=== PATIENT | female | born 1935 | race Caucasian/White ===

== ENCOUNTER 2018-01-26 06:16 | Inpatient (IN) ==
--- NOTE | 2018-01-26 06:30 | ED ---
HPI General Chief Complaint: Chest Pain Stated Complaint: chest pain/resp Time Seen by Provider: 01/26/18 06:24 Source: patient Mode of arrival: EMS Limitations: no limitations History of Present Illness MD Complaint: Reports shortness of breath and chest pain Onset (ago): week(s) (1) Severity: moderate Consistency/Duration: progressively worsening Relieving factors: nothing Exacerbating factors: nothing Known history of: Reports COPD Associated symptoms: Reports chest pain, pain with inspiration, cough and sputum production (clear) Treatment prior to arrival: Reports oxygen and bronchodilator Related Data Home oxygen amount: none Home Medications Medication Instructions Recorded Confirmed aspirin [Aspir-Low] 81 mg PO 01/26/18 carvedilol 25 mg PO BID 01/26/18 01/26/18 levothyroxine 25 mcg PO DAILY 01/26/18 01/26/18 losartan 25 mg PO DAILY 01/26/18 01/26/18 sertraline [Zoloft] 25 mg PO HS 01/26/18 01/26/18 tolterodine 1 mg PO HS 01/26/18 01/26/18 Allergies Allergy/AdvReac Type Severity Reaction Status Date / Time No Known Allergies Allergy Verified 01/26/18 06:22 Review of Systems ROS: all other systems reviewed are negative PMFSH History History Provided By: Patient Medical History Medical History COPD (chronic obstructive pulmonary disease) (Acute) High cholesterol (Acute) Hypertension (Acute) Stroke (Acute) Surgical History Surgical History H/O endarterectomy (Acute) Status post laser cataract surgery of both eyes (Acute) Social History Social History Substance History: No History of Abuse Smoking Status: Never smoker How Often Do You Have a Drink Containing Alcohol: Monthly or less Recent Travel in [facility] within the Last 8 Weeks: No Recent Out of Country Travel within the Last 8 Weeks: No Exam Narrative Exam Narrative: GENERAL: Well-nourished, well-developed patient in no apparent distress. SKIN: Warm and dry. HEAD: Atraumatic. Normocephalic. EYES: Pupils equal and round. No scleral icterus. No injection or drainage. ENT: No nasal bleeding or discharge. Mucous membranes pink and moist. NECK: Trachea midline. No JVD. CARDIOVASCULAR: Regular rate and rhythm. no rubs or gallops RESPIRATORY: No accessory muscle use. tachypneic, mild wheezing throughout ( patient just finished ems provided nebs), tidal volume equal bilaterally. GASTROINTESTINAL: Abdomen soft, non-tender, nondistended. No rebound or guarding MUSCULOSKELETAL: Extremities without clubbing, cyanosis, or edema. No obvious deformities. NEUROLOGICAL: Awake and alert. No obvious cranial nerve deficits. Motor grossly within normal limits. Five out of 5 muscle strength in the arms and legs. Normal speech. PSYCHIATRIC: Appropriate mood and affect; insight and judgment normal. Course Initial Documented Vital Signs Temperature 97.8 F 01/26/18 06:23 Pulse Rate 85 01/26/18 06:23 Respiratory Rate 18 01/26/18 06:23 Blood Pressure 112/67 01/26/18 06:23 Pulse Oximetry 96 01/26/18 06:23 Last Documented Vital Signs Temperature 97.8 F 01/26/18 06:23 Pulse Rate 70 01/26/18 07:14 Respiratory Rate 20 01/26/18 07:14 Blood Pressure 104/54 L 01/26/18 07:14 Pulse Oximetry 94 L 01/26/18 07:14 Sign Out Sign Out Data: Patient Sign Out occurred on 01/26/18 at 07:00. Patient's care was discussed, and care was transferred from Naseem Naranjo to Emeterio Valencia MD. Sign Out Comment: c/o cp and shortness of breath x 1 week not resolving. pending bloodwork, ct chest r/o pe....ekg shows inverted t waves v4-v6 and [address] depression on I/avl...due to these findings patient should be admitted for further workup (echo, holter, serial enzymes, ekg's, dental office assistant evaluation etc) Last updated by Naseem Naranjo at 01/26/18 06:37 Post-Handoff Eval: The patient is a 82-year-old female who was initially evaluated by the previous physician, Dr. Naranjo. Dr. Naranjo noted that the patient had chest pain and shortness of breath, he thought it was an anginal equivalent as lung sounds were clear. The patient's EKG did reveal nonspecific T wave changes, troponin was elevated at 0.34, CT pulmonary angiogram was negative for PE. The patient was reevaluated at 9:15 AM. The patient had previous stent placement 2 years ago in [place]. The patient does not have a local dental office assistant or local primary physician. The patient now complains of back pain radiating into the neck as well as chest pain with inspiration. The patient had Nitropaste in place, had aspirin this morning, and did not have relief from 1 dose of fentanyl. Therefore, the patient was administered a second dose of fentanyl. The patient will be admitted to [facility] who will cover the [facility] patients. Medical Decision Making MDM Narrative Medical Screen Exam Complete: Yes Emergency Medical Condition: Yes Differential Diagnosis Differential Diagnosis: pulm embolus v pulm edema v pna v pericardial effusion v atypical stemi Lab Data Lab results reviewed: Yes I reviewed the patient's lab results. Result diagrams: 01/26/18 06:25 01/26/18 06:25 Lab Results 01/26/18 01/26/18 01/26/18 Range/Units 06:25 06:25 06:25 WBC 9.0 (4.0-11.0) th/mm3 RBC 3.62 L (4.00-5.30) mil/mm3 Hgb 11.6 (11.6-15.3) gm/dL Hct 34.1 L (35.0-46.0) % MCV 94.3 (80.0-100.0) fL MCH 31.9 (27.0-34.0) pg MCHC 33.9 (32.0-36.0) % RDW 13.3 (11.6-17.2) % Plt Count 181 (150-450) th/mm3 MPV 8.6 (7.0-11.0) fL Neut % (Auto) 75.1 H (16.0-70.0) % Lymph % (Auto) 17.0 (9.0-44.0) % [place] % (Auto) 5.8 (0.0-8.0) % Eos % (Auto) 1.8 (0.0-4.0) % Baso % (Auto) 0.3 (0.0-2.0) % Neut # (Auto) 6.8 (1.8-7.7) th/mm3 Lymph # (Auto) 1.5 (1.0-4.8) th/mm3 [place] # (Auto) 0.5 (0.0-0.9) th/mm3 Eos # (Auto) 0.2 (0.0-0.4) th/mm3 Baso # (Auto) 0.0 (0.0-0.2) th/mm3 WBC Differential . Differential Comment Auto diff final Sodium 142 (136-145) meq/L Potassium 4.2 (3.5-5.1) meq/L Chloride 103 (98-107) meq/L Carbon Dioxide 30.0 (21.0-32.0) meq/L Anion Gap 9 (5-15) meq/L BUN 13 (7-18) mg/dL Creatinine 0.80 (0.50-1.00) mg/dL Estimated GFR 69 L (>89) mL/min Random Glucose 115 H (74-106) mg/dL Calcium 8.6 (8.5-10.1) mg/dL Total Bilirubin 0.4 (0.2-1.0) mg/dL AST 15 (15-37) U/L ALT 18 (10-53) U/L Alkaline Phosphatase 116 (45-117) U/L Total Creatine Kinase 57 (26-192) U/L Troponin I 0.34 H (0.02-0.05) ng/mL B-Natriuretic Peptide 563 H (0-100) pg/mL Total Protein 6.6 (6.4-8.2) g/dL Albumin 3.3 L (3.4-5.0) g/dL Lipase 144 (73-393) U/L Imaging Data Attestation: I personally reviewed and interpreted this imaging study as follows : My impression: X-ray reveals no obvious infiltrate Radiologist's impression: Chest CTA 01/26/18 06:24 CONCLUSION: 1. No evidence of pulmonary embolism. Minimal atelectasis both lung bases. Chest X-Ray 01/26/18 06:24 CONCLUSION: No acute cardiopulmonary disease demonstrated. ECG Data EKG Prior to Arrival: No Attestation: I personally reviewed and interpreted this ECG as follows: Prior ECG tracings: not available for review Interpretation: Normal sinus rhythm,, PMI trolley, slightly depressed ST on 1 aVL as well as inverted T waves on V4 through V6. No acute ST elevation TN pattern noted Discharge Plan Discharge Disposition Patient Disposition: 30 Still Patient Discharge Condition Condition: Stable Discharge Details Diagnosis: Acute non-ST elevation myocardial infarction (NSTEMI), Elevated troponin Physicians Team ED Provider: Emeterio Valencia Primary Care Provider: UNKNOWN, Rxs /Orders / Referrals /Forms Prescriptions: No Action carvedilol 25 mg Tablet 25 mg PO BID RF: 0 tolterodine 1 mg Tablet 1 mg PO HS RF: 0 aspirin [Aspir-Low] 81 mg Tablet,Delayed Release (Dr/Ec) 81 mg PO RF: 0 levothyroxine 25 mcg Tablet 25 mcg PO DAILY RF: 0 losartan 25 mg Tablet 25 mg PO DAILY RF: 0 sertraline [Zoloft] 25 mg Tablet 25 mg PO HS RF: 0 Discharge Instructions Patient Printed Instructions: Chest Pain (ED) Discharge Interventions Interventions: Vital Signs Last Done: 01/26/18 09:27 Status ED Status: Pending Admission
[2018-01-26 06:53] LABS: Baso % (Auto) 0.3 % (0.0-2.0); Eos # (Auto) 0.2 th/mm3 (0.0-0.4); Eos % (Auto) 1.8 % (0.0-4.0); Hematocrit 34.1 % (35.0-46.0); Hemoglobin 11.6 gm/dL (11.6-15.3); Lymph # (Auto) 1.5 th/mm3 (1.0-4.8); Mean Corpuscular HGB Conc 33.9 % (32.0-36.0); Mean Corpuscular Hemoglobin 31.9 pg (27.0-34.0); Mean Corpuscular Volume 94.3 fL (80.0-100.0); Mean Platelet Volume 8.6 fL (7.0-11.0); Mono # (Auto) 0.5 th/mm3 (0.0-0.9); Mono % (Auto) 5.8 % (0.0-8.0); Neut # (Auto) 6.8 th/mm3 (1.8-7.7); Neut % (Auto) 75.1 % (16.0-70.0); Platelet Count 181 th/mm3 (150-450); Red Blood Count 3.62 mil/mm3 (4.00-5.30); Red Cell Distribution Width 13.3 % (11.6-17.2)
--- NOTE | 2018-01-26 06:54 | XR ---
EXAM DATE: 01/26/2018 6:51 AM EDT AGE/SEX: 82 years / Female INDICATIONS: Chest pain and shortness of breath. CLINICAL DATA: This is the patient's initial encounter. Patient reports that signs and symptoms have been present for 2 days and indicates a pain score of 4/10. MEDICAL/SURGICAL HISTORY: Non-responsive. Non-responsive. COMPARISON: No prior exams available for comparison. FINDINGS: No infiltrate, effusion or pneumothorax demonstrated. Heart size within normal limits. Thoracic aorta is tortuous and atherosclerotic. CONCLUSION: No acute cardiopulmonary disease demonstrated. Electronically signed by: Hal De Los Santos MD 01/26/2018 6:53 AM EDT
[2018-01-26 07:06] LABS: Albumin 3.3 g/dL (3.4-5.0); Anion Gap 9 meq/L (5-15); Aspartate Aminotransferase 15 U/L (15-37); Blood Urea Nitrogen 13 mg/dL (7-18); Calcium 8.6 mg/dL (8.5-10.1); Chloride 103 meq/L (98-107); Glomerular Filtration Rate 69 mL/min (>89); Glucose,Random 115 mg/dL (74-106); Lipase 144 U/L (73-393); Potassium 4.2 meq/L (3.5-5.1); Sodium 142 meq/L (136-145)
[2018-01-26 07:07] LABS: Alanine Aminotransferase 18 U/L (10-53)
[2018-01-26 07:10] LABS: Alkaline Phosphatase 116 U/L (45-117); Total Protein 6.6 g/dL (6.4-8.2); Troponin I 0.34 ng/mL (0.02-0.05)
[2018-01-26 07:21] LABS: Creatine Kinase 57 U/L (26-192)
[2018-01-26] MEDS ORDERED: fentaNYL Citrate Inj 100 MCG/2 ML Ampul IV.PUSH ONE (08:02)
--- NOTE | 2018-01-26 09:06 | CT ---
EXAM DATE: 01/26/2018 8:57 AM EDT AGE/SEX: 82 years / Female INDICATIONS: Chest pain and shortness of breath. CLINICAL DATA: This is the patient's initial encounter. Patient reports that signs and symptoms have been present for 1 day and indicates a pain score of 4/10. MEDICAL/SURGICAL HISTORY: Chronic obstructive pulmonary disease. Cerebrovascular disease. Hyperte nsion. None. RADIATION DOSE: 12.80 CTDI (mGy) COMPARISON: No prior exams available for comparison. TECHNIQUE: Volumetric scanning was performed using a multi-row detector CT scanner during bolus infu [place] of 75 ml Omnipaque 350 (iohexol) nonionic water-soluble contrast as a single exam dose. The lakisha a was post processed with a variety of visualization algorithms including full volume maximum intensi ty projection and sliding thin slab reformation. Using automated exposure control and adjustment of t he mA and/or kV according to patient size, radiation dose was kept as low as reasonably achievable to obtain optimal diagnostic quality images. DICOM format image data is available electronically for r eview and comparison. FINDINGS: Pulmonary Arteries: No filling defects are seen in the pulmonary arteries out to the subsegmental ve ssels. The left and right pulmonary arteries are normal in diameter. Lung: No infiltrates seen. Effusion: None. Mediastinum: No evidence of mediastinal or hilar adenopathy. Dense coronary atherosclerotic disease Other: The axilla is unremarkable. CONCLUSION: 1. No evidence of pulmonary embolism. Minimal atelectasis both lung bases. Electronically signed by: Andrae Johansen MD 01/26/2018 9:05 AM EDT
[2018-01-26] MEDS ORDERED: Morphine Sulfate Inj 2 MG/ML Vial IV.PUSH ONE (09:50)
[2018-01-26] MEDS ORDERED: Acetaminophen 325 MG Tablet PO PRN (09:50)
[2018-01-26] MEDS ORDERED: Sodium Chlor 0.9% Inj 500 ML IV.SIG SCH (10:00)
--- NOTE | 2018-01-26 10:46 | P.HP ---
History of Present Illness Primary Care Physician: UNKNOWN History of Present Illness: 82-year-old female with a history of coronary artery disease, peripheral vascular disease, ND, presents to the ER after being awoken for second night with central substernal chest pain. She reports that the pain was made worse with deep inspiration but was unable to be relieved. She states she has had a cough for the past 2-3 weeks associated with a sore throat. Of concern she has a history of myocardial infarction with stents placed on an uncertain date in [place]. Following her first episode of chest pain 2 nights ago she telephoned [employer] call nurse but did not receive a call back. After it happened again she was uncertain about the source and came straight to her [facility] emergency room. As mentioned above she has been battling a cough for the last 2-3 weeks, productive of scant clear to yellowish sputum, was treated a week ago with a 5- day Z-Art which offered temporary resolution, but the symptoms have returned. Her chest pain is induced and made worse by deep inspiration which is caused her to breathe shallow. She denies any nausea vomiting or diarrhea. She denies dysuria, fevers, urine Oder changes. Inpatient Certification: I certify that the inpatient services were ordered in accordance with Medicare regulations governing the order. This includes certification that hospital inpatient services are reasonable and necessary and in the case of services not specified as inpatient-only under 42 CFR 419.22(n), that they are appropriately provided as inpatient services in accordance to with the 2-midnight benchmark under 43 CFR 412.3(e) Review of Systems All other systems reviewed negative except as stated in HPI [facility] - History History Provided By: Patient - Medical History Medical History: Medical History (Last Updated 01/26/18 @ 06:30 by Lashay Schwartz) COPD (chronic obstructive pulmonary disease) High cholesterol Hypertension Stroke - Surgical History Surgical History: Surgical History (Last Updated 01/26/18 @ 06:30 by Lashay Schwartz) H/O endarterectomy Status post laser cataract surgery of both eyes - Family History Family History: Family History (Last Updated 01/26/18 @ 10:40 by Venkat Dennison MD) Other Hypertension - Tobacco History Smoking Status: Never smoker - Alcohol History How Often Do You Have a Drink Containing Alcohol: Monthly or less - Substance Use History Substance History: No History of Abuse - Travel History Recent Travel in the [place] Within the Last 8 Weeks: No Recent Travel Out of the Country Within the Last 8 Weeks: No - Immunization History Tetanus Immunization: Unsure Medications and Allergies Active Medications: Active Medications Acetaminophen (Tylenol) 650 mg PO Q4H PRN PRN Reason: Temp > 100.4 Benzocaine/Menthol (Chloraseptic Sore Throat Lozenge) 1 lozenge BUCCAL Q4H PRN PRN Reason: SORE THROAT Heparin Sodium (Porcine) (Heparin Inj) 5,000 units SQ Q8H [facility] Sodium Chloride (Ns Inj) 1,000 mls @ 40 mls/hr IV.CONT .Q24H [facility] Ketorolac Tromethamine (Toradol Inj) 15 mg IV.PUSH Q6H PRN PRN Reason: Pleuritic Pain Nitroglycerin (Nitrostat Sl) 0.4 mg SL Q5M PRN PRN Reason: CHEST PAIN Ondansetron HCl (Zofran Inj) 4 mg IV.PUSH Q6H PRN PRN Reason: NAUSEA OR VOMITING Sennosides (Senokot) 17.2 mg PO Q12H PRN PRN Reason: Moderate Constipation Sodium Chloride (Ns Flush) 2 ml IV.FLUSH UNSCH PRN PRN Reason: FLUSH AFTER USING IV ACCESS Sodium Chloride (Ns Flush) 2 ml IV.FLUSH BID [facility] Allergies Allergy/AdvReac Type Severity Reaction Status Date / Time No Known Allergies Allergy Verified 01/26/18 06:22 Home Medications Medication Instructions Recorded Confirmed Type aspirin [Aspir-Low] 81 mg PO 01/26/18 History carvedilol 25 mg PO BID 01/26/18 01/26/18 History levothyroxine 25 mcg PO DAILY 01/26/18 01/26/18 History losartan 25 mg PO DAILY 01/26/18 01/26/18 History sertraline [Zoloft] 25 mg PO HS 01/26/18 01/26/18 History tolterodine 1 mg PO HS 01/26/18 01/26/18 History Exam Vital signs: Vital Signs 01/26/18 06:23 01/26/18 06:33 01/26/18 07:13 Temperature 97.8 F Pulse Rate 85 Respiratory Rate 18 Blood Pressure 112/67 Pulse Oximetry 96 95 94 L 01/26/18 07:14 01/26/18 09:27 Temperature Pulse Rate 70 82 Respiratory Rate 20 17 Blood Pressure 104/54 L 101/68 Pulse Oximetry 94 L 96 Intake & Output 01/25/18 01/26/18 01/26/18 18:59 06:59 18:59 Weight 58.967 kg Narrative: GENERAL: AAOx3, no acute distress, adequate nutrition SKIN: Warm and dry, no rashes. HEAD: Atraumatic. Normocephalic. EYES: Pupils equal, round, reactive to light. No scleral icterus. No injection or drainage. ENT: No nasal bleeding or discharge. Moist mucous membranes. Nonerythematous oropharynx. NECK: Trachea midline. No JVD. Thyroid size within normal limits. CARDIOVASCULAR: Regular rate and rhythm. No murmur, no gallops, no rubs. RESPIRATORY: Bibasilar crackles, no wheezes. No accessory muscle use. GASTROINTESTINAL: Abdomen soft, non-tender, nondistended, normal active bowel sounds. Hepatic and splenic margins not palpable. MUSCULOSKELETAL: Extremities without clubbing or cyanosis. No obvious deformities. No edema. NEUROLOGICAL: Awake and alert. No obvious cranial nerve deficits. Motor grossly within normal limits. No focal deficits. Five out of 5 muscle strength in the arms and legs. Normal speech. PSYCHIATRIC: Appropriate mood and affect; insight and judgment normal. Results - Labs CBC & Chem 7: 01/26/18 06:25 01/26/18 06:25 Labs: Laboratory Results - last 24 hr 01/26/18 01/26/18 01/26/18 06:25 06:25 06:25 WBC 9.0 RBC 3.62 L Hgb 11.6 Hct 34.1 L MCV 94.3 MCH 31.9 MCHC 33.9 RDW 13.3 Plt Count 181 MPV 8.6 Neut % (Auto) 75.1 H Lymph % (Auto) 17.0 [place] % (Auto) 5.8 Eos % (Auto) 1.8 Baso % (Auto) 0.3 Neut # (Auto) 6.8 Lymph # (Auto) 1.5 [place] # (Auto) 0.5 Eos # (Auto) 0.2 Baso # (Auto) 0.0 WBC Differential . Differential Comment Auto diff final Sodium 142 Potassium 4.2 Chloride 103 Carbon Dioxide 30.0 Anion Gap 9 BUN 13 Creatinine 0.80 Estimated GFR 69 L Random Glucose 115 H Calcium 8.6 Total Bilirubin 0.4 AST 15 ALT 18 Alkaline Phosphatase 116 Total Creatine Kinase 57 Troponin I 0.34 H B-Natriuretic Peptide 563 H Total Protein 6.6 Albumin 3.3 L Lipase 144 - Imaging Impressions Chest CTA 01/26/18 06:24 CONCLUSION: 1. No evidence of pulmonary embolism. Minimal atelectasis both lung bases. Chest X-Ray 01/26/18 06:24 CONCLUSION: No acute cardiopulmonary disease demonstrated. Caprini VTE Risk Assessment Caprini VTE Risk Assessment: Moderate/High Risk (score >= 2) Caprini Risk Assessment Model: Point Value = 1 Point Value = 2 Point Value = 3 Point Value = 5 Age 41-60 Minor surgery BMI > 25 kg/m2 Swollen legs Varicose veins or History of unexplained or recurrent spontaneous Oral contraceptives or hormone replacement Sepsis (< 1 month) Serious lung disease, including pneumonia (< 1 month) Abnormal pulmonary function Acute myocardial infarction Congestive heart failure (< 1 month) History of inflammatory bowel disease Medical patient at bed rest Age 61-74 Arthroscopic surgery Major open surgery (> 45 min) Laparoscopic surgery (> 45 min) Malignancy Confined to bed (> 72 hours) Immobilizing plaster cast Central venous access Age >= 75 History of VTE Family history of VTE Factor V Leiden Prothrombin [id number] Lupus anticoagulant Anticardiolipin antibodies Elevated serum homocysteine Heparin-induced thrombocytopenia Other congenital or acquired thrombophilia Stroke (< 1 month) Elective arthroplasty Hip, pelvis, or leg fracture Acute spinal cord injury (< 1 month) Prophylaxis Regimen: Total Risk Factor Score Risk Level Prophylaxis Regimen 0-1 Low Early ambulation 2 Moderate Order ONE of the following: *Sequential Compression Device (SCD) *Heparin 5000 units SQ BID 3-4 Higher Order ONE of the following medications: *Heparin 5000 units SQ TID *Enoxaparin/Lovenox 40 mg SQ daily (WT < 150 kg, CrCl > 30 mL/min) *Enoxaparin/Lovenox 30 mg SQ daily (WT < 150 kg, CrCl > 10-29 mL/min) *Enoxaparin/Lovenox 30 mg SQ BID (WT < 150 kg, CrCl > 30 mL/min) AND/OR *Sequential Compression Device (SCD) 5 or more Highest Order ONE of the following medications: *Heparin 5000 units SQ TID (Preferred with Epidurals) *Enoxaparin/Lovenox 40 mg SQ daily (WT < 150 kg, CrCl > 30 mL/min) *Enoxaparin/Lovenox 30 mg SQ daily (WT < 150 kg, CrCl > 10-29 mL/min) *Enoxaparin/Lovenox 30 mg SQ BID (WT < 150 kg, CrCl > 30 mL/min) AND *Sequential Compression Device (SCD) Assessment and Plan - Plan Acute chest pain High risk due to history of ND, currently with elevated troponin level Onset of chest pain was twice and occurred during sleep Patient has a history of stent placement in [place], cannot recall which year She has a history of poor circulation in her legs, history of endarterectomy in 2009 Cardiology is consulted to assist with further workup, treating as cardiac chest pain at this point Cough She has been battling bronchitis for the last 2-3 weeks, completed Z-Art 1 week ago She still complains of sore throat and chest pain with deep inspiration ( pleuritic) Offered Chloraseptic lozenges Change pain control from morphine to Toradol Chest x-ray, CTA, WBCs show no evidence of infectious process Lung exam has bibasilar crackles which is consistent with atelectasis present on CTA We will check a urinalysis to look for possible underlying cause of infection DVT Prophylaxis Heparin
--- NOTE | 2018-01-26 13:31 | MB ---
cc: Russel Rivera MD DATE: 01/26/2018 REASON FOR CONSULTATION: Evaluation of chest pain and elevated troponin. HISTORY OF PRESENT ILLNESS: Patricia Hernandez is an 82-year-old woman with known atherosclerotic cardiovascular disease. She apparently had an IN about 10 years ago and had a stent while she was in [place]. She is known to have severe peripheral arterial disease. She has multiple risk factors for coronary artery disease and has had a previous left carotid endarterectomy at age 63, after which, about a week later, she says she had a stroke. Two nights ago, she complained of pain in her throat. She went back to bed and then had severe pain in her chest. She said it was a strong pain and it hurt to take a deep breath. She had it all morning. She had again last night. The pain is not as bad today, but her troponin is elevated. She has had bronchitis, she says, for a couple of weeks. She also has a sore throat. Her troponin is elevated. She has had a CTA which shows no evidence for pulmonary embolism. Still has mild ongoing chest discomfort. PAST MEDICAL HISTORY: Includes COPD. She smoked a pack a day for 50 years, quit about 20 years ago. Hypertension, hyperlipidemia, stroke at age 63 after a carotid endarterectomy. Lipid status is unknown. She has peripheral arterial disease with absent femoral and pedal pulses. PAST SURGICAL HISTORY: Includes left carotid endarterectomy. MEDICATION LIST: Prior to admission, she was on carvedilol 6.25 b.i.d., losartan 25 mg daily, aspirin daily along with other noncardiac medications. I do not see a statin listed. ALLERGIES: NONE. FAMILY HISTORY: Noncontributory. SOCIAL HISTORY: She smoked, she told me, about a pack a day from a teenager to about age 61. She lives alone. She does have a daughter here in town who lives in [place]. REVIEW OF SYSTEMS: Notable for some memory difficulties and arthritic pain. PHYSICAL EXAMINATION: GENERAL: Reveals an elderly white female who does not appear to be in acute distress. VITAL SIGNS: Charted. HEENT: Unremarkable. NECK: Shows adequate upstrokes with no bruits. CHEST: Shows trace crackles at the bases. CARDIAC: Normal S1, normal S2. Regular rate and rhythm. I do not appreciate murmurs or gallops. ABDOMEN: Soft. EXTREMITIES: Reveal absent femoral and pedal pulses. LABORATORY DATA: EKG shows sinus rhythm, small Q-waves inferiorly, nonspecific ST-T wave changes with slight depression in I and aVL, T-wave inversion in V4, V5, V6 and a minimal degree of elevation in lead III. Findings are nonspecific, but compatible with possible ischemia. She had a CTA which was negative for pulmonary emboli. Her creatinine was 0.8. Initial troponin was 0.34. BNP elevated at 563. Hematocrit was 34.1. IMPRESSION: This is an 82-year-old woman with known severe vascular disease who comes in with chest pain. Her troponin is clearly elevated. There is a strong pleuritic component to the pain, but no evidence for pulmonary embolism on her chest CTA. I offered her a heart catheterization. She is steadfastly refusing having a heart catheterization and when I asked her about explanation of do not resuscitate status, she wants to be a DO NOT RESUSCITATE. PLAN: I am going to treat her medically. I am going to put her on metoprolol 25 b.i.d. and nitro paste 1/2 inch q.6 hours. Start atorvastatin 40 mg daily. Load her with Plavix and continue 75 mg daily. Order aspirin 81 mg daily. A 2-D echo Doppler is ordered. Further therapy to be determined. MD GABINO Douglas/marija , 12:27 PM , 12:37 PM
--- NOTE | 2018-01-26 14:33 | ECG ---
Date Performed: 01/26/2018 Time Performed: 06:32:51 PTAGE: 82 years EKG: Sinus rhythm POSSIBLE LEFT ATRIAL ENLARGEMENT MODERATE T-WAVE ABNORMALITY, CONSIDER LATERAL ISCHEMIA ABNORMAL ECG NO PREVIOUS TRACING DOCTOR: Varun Doshi Interpretating Date/Time 01/26/2018 14:27:57
[2018-01-26] MEDS: Sod Chloride 0.9% Inj 1,000 ML IV.CONT SCH (15:29)
[2018-01-26] MEDS: Heparin - SQ 10,000 UNITS/ML Vial SQ SCH ×3 (15:41→21:15)
[2018-01-26] MEDS: Ketorolac Inj 30 MG/ML (IVP) Vial IV.PUSH PRN ×2 (15:42→21:15)
[2018-01-26 16:34] LABS: Troponin I 0.26 ng/mL (0.02-0.05)
[2018-01-26] MEDS: Sodium Chloride 0.9% 2 ML Flush BID IV.FLUSH SCH (21:15)
[2018-01-26] MEDS: Metoprolol Tartrate 25 MG Tablet PO SCH (21:16)
[2018-01-26] MEDS: Melatonin 5 MG Tablet PO PRN (22:00)
[2018-01-26 22:12] LABS: Troponin I 0.75 ng/mL (0.02-0.05)
[2018-01-26] MEDS ORDERED: Morphine Inj 4 MG/ML Vial IV.PUSH ONE (22:24)
[2018-01-27 01:14] LABS: ABG PCO2 63 mmHg (38-42); ABG PO2 85 mmHg (61-120)
--- NOTE | 2018-01-27 02:28 | XR ---
EXAM DATE: 01/27/2018 2:02 AM EDT AGE/SEX: 82 years / Female INDICATIONS: Congestion. CLINICAL DATA: This is the patient's subsequent encounter. Patient reports that signs and symptoms h ave been present for 2 days and indicates a pain score of Nonresponsive. MEDICAL/SURGICAL HISTORY: Non-responsive. Non-responsive. COMPARISON: [facility] – [place], CHEST 1V SINGLE AP, 01/26/2018. . FINDINGS: The cardiac silhouette is normal in transverse diameter. There is prominence of the central pulmonary vasculature with indistinct vascular margins compatible with vascular congestion but no evidence of overt failure. There is subsegmental atelectasis in the left base. Small bilateral pleural effusions are identified. CONCLUSION: Cardiomegaly and findings of vascular congestion without overt failure. This is new when compared wit h the prior exam. Electronically signed by: Alejandro Ramirez MD 01/27/2018 2:27 AM EDT
[2018-01-27] MEDS: Heparin - SQ 10,000 UNITS/ML Vial SQ SCH ×3 (04:12→21:01)
--- NOTE | 2018-01-27 08:05 | P.PNCA ---
Subjective Interval history: Patient upset about CPAP mask. Denies chest pain. Medications and Allergies Active Medications: Active Medications Acetaminophen (Tylenol) 650 mg PO Q4H PRN PRN Reason: Temp > 100.4 Albuterol (Duoneb Neb (Prn)) 1 ampul NEB Q2HR NEB PRN PRN Reason: sob/wheezing Last Admin: 01/27/18 01:35 Dose: 1 ampul Aspirin (Aspirin Chew) 81 mg PO DAILY [facility] Atorvastatin Calcium (Lipitor) 40 mg PO DAILY [facility] Benzocaine/Menthol (Chloraseptic Sore Throat Lozenge) 1 lozenge BUCCAL Q4H PRN PRN Reason: SORE THROAT Last Admin: 01/26/18 15:42 Dose: 1 lozenge Clopidogrel Bisulfate (Plavix) 75 mg PO DAILY [facility] Furosemide (Lasix Inj) 20 mg IV.PUSH BID@0900,1800 [facility] Heparin Sodium (Porcine) (Heparin Inj) 5,000 units SQ Q8H [facility] Last Admin: 01/27/18 04:12 Dose: Not Given Sodium Chloride (Ns Inj) 1,000 mls @ 40 mls/hr IV.CONT .Q24H [facility] Last Admin: 01/26/18 15:29 Dose: 40 mls/hr Ketorolac Tromethamine (Toradol Inj) 15 mg IV.PUSH Q6H PRN PRN Reason: Pleuritic Pain Last Admin: 01/26/18 21:15 Dose: 15 mg Melatonin (Melatonin) 10 mg PO HS PRN PRN Reason: INSOMNIA Last Admin: 01/26/18 22:00 Dose: 10 mg Metoprolol Tartrate (Lopressor) 25 mg PO BID [facility] Last Admin: 01/26/18 21:16 Dose: 25 mg Nitroglycerin (Nitrostat Sl) 0.4 mg SL Q5M PRN PRN Reason: CHEST PAIN Nitroglycerin (Nitro-Bid 2% Oint) 0.5 inch TOPICAL Q6HR [facility] Last Admin: 01/27/18 06:07 Dose: 0.5 inch Ondansetron HCl (Zofran Inj) 4 mg IV.PUSH Q6H PRN PRN Reason: NAUSEA OR VOMITING Potassium Chloride (K-Dur) 20 meq PO BID [facility] Sennosides (Senokot) 17.2 mg PO Q12H PRN PRN Reason: Moderate Constipation Sodium Chloride (Ns Flush) 2 ml IV.FLUSH UNSCH PRN PRN Reason: FLUSH AFTER USING IV ACCESS Sodium Chloride (Ns Flush) 2 ml IV.FLUSH BID [facility] Last Admin: 01/26/18 21:15 Dose: Not Given Allergies Allergy/AdvReac Type Severity Reaction Status Date / Time No Known Allergies Allergy Verified 01/26/18 06:22 Home Medications Medication Instructions Recorded Confirmed Type aspirin [Aspir-Low] 81 mg PO 01/26/18 History carvedilol 25 mg PO BID 01/26/18 01/26/18 History levothyroxine 25 mcg PO DAILY 01/26/18 01/26/18 History losartan 25 mg PO DAILY 01/26/18 01/26/18 History sertraline [Zoloft] 25 mg PO HS 01/26/18 01/26/18 History tolterodine 1 mg PO HS 01/26/18 01/26/18 History Physical Exam Vital signs: Vital Signs 01/26/18 09:27 01/26/18 12:11 01/26/18 16:00 Temperature 98.7 F Pulse Rate 82 87 92 H Respiratory Rate 17 16 Blood Pressure 101/68 95/66 L 90/56 L Pulse Oximetry 96 92 L 01/26/18 18:00 01/26/18 20:00 01/27/18 00:00 Temperature 98.3 F 99 F Pulse Rate 95 H 82 Respiratory Rate 18 19 Blood Pressure 125/58 L 107/59 L 98/57 L Pulse Oximetry 94 L 96 01/27/18 01:31 01/27/18 02:56 01/27/18 04:00 Temperature 97.4 F L Pulse Rate 103 H 72 Respiratory Rate 30 H 18 Blood Pressure 98/57 L Pulse Oximetry 98 97 97 Intake & Output 01/26/18 01/27/18 01/27/18 18:59 06:59 18:59 Intake Total 420 / 420 Output Total 850 / 850 Balance -430 / -430 Weight 64.7 kg Intake: Oral 420 / 420 Output: Urine 850 / 850 Other: # Incontinent Voids 2 Date of Last Bowel Movement 01/25/18 Narrative: Alert, wearing CPAP Neck veins visble Chest: diminished BS CXR results note CV S1S2 RRR abd soft no edema Results 01/26/18 06:25 01/26/18 06:25 Cardiac Enzymes 01/26/18 01/26/18 01/26/18 Range/Units 06:25 06:25 15:47 AST 15 (15-37) U/L Troponin I 0.34 H 0.26 H (0.02-0.05) ng/mL B-Natriuretic Peptide 563 H (0-100) pg/mL 01/26/18 Range/Units 21:16 AST (15-37) U/L Troponin I 0.75 H* D (0.02-0.05) ng/mL B-Natriuretic Peptide (0-100) pg/mL Coagulation 01/26/18 Range/Units 06:25 B-Natriuretic Peptide 563 H (0-100) pg/mL CBC 01/26/18 Range/Units 06:25 WBC 9.0 (4.0-11.0) th/mm3 RBC 3.62 L (4.00-5.30) mil/mm3 Hgb 11.6 (11.6-15.3) gm/dL Hct 34.1 L (35.0-46.0) % Plt Count 181 (150-450) th/mm3 Neut # (Auto) 6.8 (1.8-7.7) th/mm3 Lymph # (Auto) 1.5 (1.0-4.8) th/mm3 Barry # (Auto) 0.5 (0.0-0.9) th/mm3 Eos # (Auto) 0.2 (0.0-0.4) th/mm3 Baso # (Auto) 0.0 (0.0-0.2) th/mm3 Comprehensive Metabolic Panel 01/26/18 Range/Units 06:25 Sodium 142 (136-145) meq/L Potassium 4.2 (3.5-5.1) meq/L Chloride 103 (98-107) meq/L Carbon Dioxide 30.0 (21.0-32.0) meq/L BUN 13 (7-18) mg/dL Creatinine 0.80 (0.50-1.00) mg/dL Calcium 8.6 (8.5-10.1) mg/dL AST 15 (15-37) U/L ALT 18 (10-53) U/L Alkaline Phosphatase 116 (45-117) U/L Total Protein 6.6 (6.4-8.2) g/dL Albumin 3.3 L (3.4-5.0) g/dL Intake and Output 01/26/18 01/27/18 01/27/18 22:59 06:59 14:59 Intake Total 420 / 420 Output Total 850 / 850 Balance -430 / -430 Intake: Oral 420 / 420 Output: Urine 850 / 850 Other: # Incontinent Voids 2 Date of Last Bowel Movement 01/25/18 Weight 64.7 kg - Imaging and Cardiology Imaging: Impressions Chest CTA 01/26/18 06:24 CONCLUSION: 1. No evidence of pulmonary embolism. Minimal atelectasis both lung bases. Chest X-Ray 01/26/18 06:24 CONCLUSION: No acute cardiopulmonary disease demonstrated. Chest X-Ray 01/27/18 00:00 CONCLUSION: Cardiomegaly and findings of vascular congestion without overt failure. This is new when compared with the prior exam. Assessment and Plan - Assessment (1) Frail elderly Code(s): R54 - Age-related physical debility Status: Acute Plan: She asked to be DNR. No cardiac cath (2) COPD (chronic obstructive pulmonary disease) Code(s): J44.9 - Chronic obstructive pulmonary disease, unspecified Status: Acute Plan: Last night severe CO2 retention. Heavy smoker in the past (3) PAD (peripheral artery disease) Code(s): I73.9 - Peripheral vascular disease, unspecified Status: Acute (4) Acute CHF (congestive heart failure) Code(s): I50.9 - Heart failure, unspecified Status: Acute Plan: start IV lasix. Eco pending (5) Acute non-ST elevation myocardial infarction (NSTEMI) Code(s): I21.4 - Non-ST elevation (NSTEMI) myocardial infarction Status: Acute Plan: Cont ASA/clopidogrel/BB/nitrates/statin
[2018-01-27] MEDS: Ketorolac Inj 30 MG/ML (IVP) Vial IV.PUSH PRN ×3 (09:04→23:11)
[2018-01-27] MEDS: Metoprolol Tartrate 25 MG Tablet PO SCH ×2 (09:09→21:02)
[2018-01-27] MEDS: Sodium Chloride 0.9% 2 ML Flush BID IV.FLUSH SCH ×2 (09:09→21:03)
[2018-01-27] MEDS: Sod Chloride 0.9% Inj 1,000 ML IV.CONT SCH (10:09)
[2018-01-27] MEDS: ALPRAZolam 0.25 MG Tablet PO PRN ×2 (12:38→21:03)
[2018-01-27] MEDS: MethylPREDNISolone Sod Succinate Inj 125 MG/2 ML Vial IV.PUSH SCH ×2 (13:42→21:01)
--- NOTE | 2018-01-27 14:30 | XR ---
EXAM DATE: 01/27/2018 2:28 PM EDT AGE/SEX: 82 years / Female INDICATIONS: Shortness of breath. Back pain, neck pain, shoulder pain. CLINICAL DATA: This is the patient's subsequent encounter. Patient reports that signs and symptoms h ave been present for 2 days and indicates a pain score of 6/10. MEDICAL/SURGICAL HISTORY: None. None. COMPARISON: [facility], CHEST 1V SINGLE AP, 01/27/2018. . FINDINGS: Moderate interstitial edema is present with moderate cardiomegaly. Consolidation changes left base. N o pleural effusion. The portion of the bony skeleton visualized is unremarkable. CONCLUSION: Moderate congestive failure. Electronically signed by: Spencer Marshall MD 01/27/2018 2:29 PM EDT
--- NOTE | 2018-01-27 14:57 | P.PNIM ---
Subjective Interval history: Patient reports that she is having more short of breath this morning and low back pain. She denies any chest pain. She is verifying a DO NOT RESUSCITATE status. She declines cardiac catheterization Physical Exam Vital signs: Vital Signs 01/26/18 16:00 01/26/18 18:00 01/26/18 20:00 Temperature 98.7 F 98.3 F Pulse Rate 92 H 95 H Respiratory Rate 16 18 Blood Pressure 90/56 L 125/58 L 107/59 L Pulse Oximetry 92 L 94 L 01/27/18 00:00 01/27/18 01:31 01/27/18 02:56 Temperature 99 F Pulse Rate 82 103 H Respiratory Rate 19 30 H Blood Pressure 98/57 L Pulse Oximetry 96 98 97 01/27/18 04:00 01/27/18 08:00 01/27/18 09:00 Temperature 97.4 F L 98.0 F 97.8 F Pulse Rate 72 78 83 Respiratory Rate 18 18 18 Blood Pressure 98/57 L 105/59 L 114/69 Pulse Oximetry 97 95 97 01/27/18 12:00 01/27/18 13:58 Temperature 98.0 F Pulse Rate 78 77 Respiratory Rate 18 22 Blood Pressure 105/59 L Pulse Oximetry 95 Intake & Output 01/26/18 01/27/18 01/27/18 18:59 06:59 18:59 Intake Total 420 / 420 Output Total 850 / 850 Balance -430 / -430 Weight 64.7 kg Intake: Oral 420 / 420 Output: Urine 850 / 850 Other: # Incontinent Voids 2 Date of Last Bowel Movement 01/25/18 Narrative: GENERAL: This is a well-nourished, well-developed patient, in no apparent distress. CARDIOVASCULAR: Regular rate and rhythm RESPIRATORY: Diffuse axillary wheezes bilaterally with few bibasilar crackles GASTROINTESTINAL: Abdomen soft, non-tender, nondistended. Normal active bowel sounds MUSCULOSKELETAL: Extremities without clubbing, cyanosis, trace edema NEURO: Alert & Oriented x4 to person, place, time, situation. Moves all ext x4 Results - Labs CBC & Chem 7: 01/26/18 06:25 01/26/18 06:25 Laboratory Results - last 24 hr 01/26/18 01/26/18 01/27/18 15:47 21:16 01:03 Puncture Site Left radial Patient Temperature 98.6 O2 Saturation 93 ABG pH 7.26 L* ABG pCO2 63 H* ABG pO2 85 ABG HCO3 27 H ABG O2 Content 15.4 ABG Base Excess 1.0 ABG Methemoglobin 1.0 Arnie Test Present Hemoglobin 11.7 L Carboxyhemoglobin 1.2 O2 Delivery Device Nasal cannula Liter Flow 3.00 Critical Value Yes Total Creatine Kinase 60 76 Troponin I 0.26 H 0.75 H* D - Imaging Impressions Chest X-Ray 01/27/18 00:00 CONCLUSION: Cardiomegaly and findings of vascular congestion without overt failure. This is new when compared with the prior exam. Chest X-Ray 01/27/18 00:00 CONCLUSION: Moderate congestive failure. Assessment and Plan - Plan Non-ST elevation myocardial infarction Patient declines cardiac catheterization and was seen by Dr. Rivera cardiology Continue medical management with aspirin, beta-nicolle, statin, nitro patch Acute congestive heart failure exacerbation Total dose of Lasix 60 mg IV given this morning and will continue with 20 mg IV twice daily with potassium supplement. Obtain 2D echo for further evaluation Acute COPD exacerbation O2 support scheduled duonebs Steroids will be initiated DVT prophylaxis Lovenox. Code Status: DNR Discharge Planning: Pending clinical status
--- NOTE | 2018-01-27 18:49 | ECHRPT ---
Indication: CHEST PAIN CONCLUSIONS The left ventricular systolic function is low normal with an estimated ejection fraction in the rang e of 50- 55%. Mild concentric left ventricular hypertrophy. A possible atrial level shunt is demonstrated by color flow Doppler interrogation. Moderate mitral valve regurgitation. There is trace tricuspid valve regurgitation. Left pleural effusion noted. BP: / HR: Rhythm: MEASUREMENTS (Male / Female) Normal Values Technical Quality: 2D ECHO LV Diastolic Diameter PLAX 4.2 cm 4.2 - 5.9 / 3.9 - 5.3 cm LV Systolic Diameter PLAX 3.2 cm IVS Diastolic Thickness 1.2 cm 0.6 - 1.0 / 0.6 - 0.9 cm LVPW Diastolic Thickness 1.1 cm 0.6 - 1.0 / 0.6 - 0.9 cm LV Relative Wall Thickness 0.5 RV Internal Dim ED PLAX 2.4 cm LVOT Diameter 2.0 cm Aortic Root Diameter 2.6 cm LA Systolic Diameter LX 3.3 cm 3.0 - 4.0 / 2.7 - 3.8 cm LV Ejection Fraction MOD 4C 51.8 % LV Ejection Fraction 4C AL 52.4 % M-MODE AV Cusp Separation MM 1.7 cm DOPPLER AV Peak Velocity 129.0 cm/s AV Peak Gradient 6.7 mmHg LVOT Peak Velocity 63.7 cm/s LVOT Peak Gradient 1.6 mmHg AV Area Cont Eq pk 1.6 cm MR Peak Velocity 545.0 cm/s MR Peak Gradient 118.8 mmHg Mitral E Point Velocity 138.0 cm/s Mitral A Point Velocity 81.4 cm/s Mitral E to A Ratio 1.7 LV E' Lateral Velocity 11.4 cm/s Mitral E to LV E' Lateral Ratio 12.1 LV E' Septal Velocity 7.2 cm/s Mitral E to LV E' Septal Ratio 19.1 TR Peak Velocity 336.0 cm/s TR Peak Gradient 45.2 mmHg Right Atrial Pressure 10.0 mmHg Pulmonary Artery Systolic Pressu 55.2 mmHg Right Ventricular Systolic Press 55.2 mmHg PV Peak Velocity 70.1 cm/s PV Peak Gradient 2.0 mmHg FINDINGS LEFT VENTRICLE The left ventricular systolic function is low normal with an estimated ejection fraction in the rang e of 50- 55%. Mild concentric left ventricular hypertrophy. There was limited left ventricular wall motion assessment due to poor endocardial visualization. RIGHT VENTRICLE The right ventricle was not well visualized. LEFT ATRIUM The left atrial size is mildly dilated. RIGHT ATRIUM The right atrial size is normal. ATRIAL SEPTUM A possible atrial level shunt is demonstrated by color flow Doppler interrogation AORTA The aortic root and proximal ascending aorta are normal in size on limited imaging. MITRAL VALVE Structurally normal mitral valve. No mitral valve stenosis. Moderate mitral valve regurgitation. Mild mitral annular calcification. AORTIC VALVE No aortic valve stenosis or regurgitation. TRICUSPID VALVE Grossly normal There is trace tricuspid valve regurgitation. PULMONARY VALVE No pulmonary valve regurgitation or stenosis. VESSELS The inferior vena cava is normal in size. PERICARDIUM No pericardial effusion. Left pleural effusion noted Will Proctor DO (Electronically Signed) Final Date:27 January 2018 18:48
--- NOTE | 2018-01-27 19:42 | ECG ---
Date Performed: 01/26/2018 Time Performed: 18:18:37 PTAGE: 82 years EKG: Sinus rhythm ST-T wave abnormalities consistent with possible ischemia ABNORMAL ECG PREVIOUS TRACING : 01/26/2018 06.32 Since the previous tracing, no significant change noted DOCTOR: Russel Rivera Interpretating Date/Time 01/27/2018 19:42:08
[2018-01-27] MEDS: Melatonin 5 MG Tablet PO PRN (21:05)
[2018-01-28] MEDS: MethylPREDNISolone Sod Succinate Inj 125 MG/2 ML Vial IV.PUSH SCH ×4 (00:59→20:24)
[2018-01-28] MEDS: Ketorolac Inj 30 MG/ML (IVP) Vial IV.PUSH PRN ×3 (04:31→19:33)
[2018-01-28] MEDS: ALPRAZolam 0.25 MG Tablet PO PRN ×3 (04:31→20:20)
[2018-01-28] MEDS: Heparin - SQ 10,000 UNITS/ML Vial SQ SCH ×3 (04:58→20:28)
[2018-01-28 07:29] LABS: Baso % (Auto) 0.1 % (0.0-2.0); Hematocrit 38.1 % (35.0-46.0); Hemoglobin 12.9 gm/dL (11.6-15.3); Lymph # (Auto) 0.6 th/mm3 (1.0-4.8); Lymph % (Auto) 3.7 % (9.0-44.0); Mean Corpuscular HGB Conc 33.8 % (32.0-36.0); Mean Corpuscular Hemoglobin 31.9 pg (27.0-34.0); Mean Corpuscular Volume 94.5 fL (80.0-100.0); Mean Platelet Volume 9.3 fL (7.0-11.0); Mono # (Auto) 0.3 th/mm3 (0.0-0.9); Mono % (Auto) 1.9 % (0.0-8.0); Neut # (Auto) 14.4 th/mm3 (1.8-7.7); Neut % (Auto) 94.3 % (16.0-70.0); Platelet Count 207 th/mm3 (150-450); Red Blood Count 4.03 mil/mm3 (4.00-5.30); Red Cell Distribution Width 13.5 % (11.6-17.2); White Blood Count 15.3 th/mm3 (4.0-11.0)
[2018-01-28] MEDS: Metoprolol Tartrate 25 MG Tablet PO SCH ×2 (08:10→20:20)
[2018-01-28] MEDS: Sodium Chloride 0.9% 2 ML Flush BID IV.FLUSH SCH ×2 (08:11→20:29)
[2018-01-28 08:14] LABS: Alanine Aminotransferase 28 U/L (10-53); Albumin 3.3 g/dL (3.4-5.0); Alkaline Phosphatase 137 U/L (45-117); Anion Gap 12 meq/L (5-15); Aspartate Aminotransferase 39 U/L (15-37); Blood Urea Nitrogen 26 mg/dL (7-18); Calcium 8.7 mg/dL (8.5-10.1); Carbon Dioxide 25.5 meq/L (21.0-32.0); Chloride 99 meq/L (98-107); Glomerular Filtration Rate 37 mL/min (>89); Glucose,Random 274 mg/dL (74-106); Potassium 4.2 meq/L (3.5-5.1); Sodium 136 meq/L (136-145); Total Protein 7.9 g/dL (6.4-8.2)
--- NOTE | 2018-01-28 11:27 | P.PN ---
Subjective Interval history: Pt had more cp/sob over night, feeling a little better currently Physical Exam Vital signs: Vital Signs 01/27/18 12:00 01/27/18 13:58 01/27/18 16:00 Temperature 98.0 F 97.1 F L Pulse Rate 76 77 92 H Respiratory Rate 18 22 18 Blood Pressure 105/59 L 100/56 L Pulse Oximetry 95 94 L 01/27/18 16:31 01/27/18 17:00 01/27/18 20:00 Temperature 98.3 F Pulse Rate 99 H 96 H 82 Respiratory Rate 18 16 Blood Pressure 102/69 Pulse Oximetry 95 01/27/18 20:08 01/27/18 23:36 01/28/18 00:00 Temperature 98 F Pulse Rate 98 H 97 H 105 H Respiratory Rate 19 18 18 Blood Pressure 100/76 Pulse Oximetry 96 97 94 L 01/28/18 02:30 01/28/18 03:36 01/28/18 03:38 Temperature 97.8 F Pulse Rate 112 H 113 H Respiratory Rate 40 H 22 Blood Pressure 113/72 Pulse Oximetry 92 L 93 L 01/28/18 04:00 01/28/18 07:47 Temperature Pulse Rate 114 H 115 H Respiratory Rate 20 Blood Pressure Pulse Oximetry Intake & Output 01/27/18 01/28/18 01/28/18 18:59 06:59 18:59 Intake Total 500 / 500 280 / 280 Output Total 300 / 300 Balance 500 / 500 -20 / -20 Weight 65.1 kg Intake: IV 500 / 500 NS Inj 1,000 ML @ 40 mls/hr IV. 500 / 500 CONT .Q24H [facility] Rx#:[id number] Oral 280 / 280 Output: Urine 300 / 300 Other: # Voids 2 - Constitutional no acute distress - Routine HEENT Exam Head: Present: normocephalic - Routine Neck Exam Present: supple - Routine Respiratory Exam Present: rales - Routine Cardiovascular Exam Present: RRR. Absent: murmur - Routine Abdominal Exam Present: soft Results - Labs CBC & Chem 7: 01/28/18 06:23 01/28/18 06:23 Laboratory Results - last 24 hr 01/28/18 01/28/18 06:23 06:23 WBC 15.3 H RBC 4.03 Hgb 12.9 Hct 38.1 MCV 94.5 MCH 31.9 MCHC 33.8 RDW 13.5 Plt Count 207 MPV 9.3 Neut % (Auto) 94.3 H Lymph % (Auto) 3.7 L Long % (Auto) 1.9 Eos % (Auto) 0.0 Baso % (Auto) 0.1 Neut # (Auto) 14.4 H Lymph # (Auto) 0.6 L Long # (Auto) 0.3 Eos # (Auto) 0.0 Baso # (Auto) 0.0 WBC Differential . Differential Comment Auto diff final Sodium 136 Potassium 4.2 Chloride 99 Carbon Dioxide 25.5 Anion Gap 12 BUN 26 H Creatinine 1.36 H Estimated GFR 37 L Random Glucose 274 H D Calcium 8.7 Total Bilirubin 0.4 AST 39 H ALT 28 Alkaline Phosphatase 137 H Total Protein 7.9 D Albumin 3.3 L - Imaging Impressions Chest X-Ray 01/27/18 00:00 CONCLUSION: Moderate congestive failure. Assessment and Plan - Assessment (1) Frail elderly Code(s): R54 - Age-related physical debility Status: Acute (2) COPD (chronic obstructive pulmonary disease) Code(s): J44.9 - Chronic obstructive pulmonary disease, unspecified Status: Acute (3) PAD (peripheral artery disease) Code(s): I73.9 - Peripheral vascular disease, unspecified Status: Acute (4) Acute CHF (congestive heart failure) Code(s): I50.9 - Heart failure, unspecified Status: Acute Plan: seems wet, will give lasix. (5) Acute non-ST elevation myocardial infarction (NSTEMI) Code(s): I21.4 - Non-ST elevation (NSTEMI) myocardial infarction Status: Acute Plan: More chest pain overnight, she is considering cath; will add ntg
--- NOTE | 2018-01-28 16:50 | P.PNIM ---
Subjective Interval history: 82-year-old female admitted for shortness of breath and chest pain. She has been treated for COPD exacerbation with minimal improvement. She continues to have chest pain overnight. In the ER she declined offer for coronary angiogram with possible stent placement. Now it seems she has changed her mind and is interested again in a coronary angiogram with likely stent placement. Physical Exam Vital signs: Vital Signs 01/27/18 17:00 01/27/18 20:00 01/27/18 20:08 Temperature 98.3 F Pulse Rate 96 H 82 98 H Respiratory Rate 16 19 Blood Pressure 102/69 Pulse Oximetry 95 96 01/27/18 23:36 01/28/18 00:00 01/28/18 02:30 Temperature 98 F Pulse Rate 97 H 105 H 112 H Respiratory Rate 18 18 40 H Blood Pressure 100/76 Pulse Oximetry 97 94 L 01/28/18 03:36 01/28/18 03:38 01/28/18 04:00 Temperature 97.8 F Pulse Rate 113 H 114 H Respiratory Rate 22 Blood Pressure 113/72 Pulse Oximetry 92 L 93 L 01/28/18 07:47 01/28/18 11:42 01/28/18 11:47 Temperature Pulse Rate 115 H 112 H Respiratory Rate 20 16 Blood Pressure Pulse Oximetry 95 01/28/18 12:00 01/28/18 15:25 Temperature 97.2 F L Pulse Rate 93 H 98 H Respiratory Rate 20 16 Blood Pressure 98/73 L Pulse Oximetry 96 Intake & Output 01/27/18 01/28/18 01/28/18 18:59 06:59 18:59 Intake Total 500 / 500 280 / 280 Output Total 300 / 300 Balance 500 / 500 -20 / -20 Weight 65.1 kg Intake: IV 500 / 500 NS Inj 1,000 ML @ 40 mls/hr IV. 500 / 500 CONT .Q24H [facility] Rx#:[id number] Oral 280 / 280 Output: Urine 300 / 300 Other: # Voids 2 Narrative: GENERAL: AAOx3, moderate distress, anxiety, mild tachypnea SKIN: Warm and dry. No rashes HEAD: Atruamtic, normocephalic. EYES: No scleral icterus. No injection or drainage. ENT: Moist mucous membranes, patent nares, no erythema of oropharynx. NECK: Supple, trachea midline. No JVD or lymphadenopathy. Normal thyroid. CARDIOVASCULAR: Regular rate and rhythm. No murmurs, gallops, or rubs. RESPIRATORY: Edematous crackles throughout both lungs, moderate. No accessory muscle use. GASTROINTESTINAL: Abdomen soft, non-tender, nondistended, normal active bowel sounds MUSCULOSKELETAL: No cyanosis, or edema. NEURO: CN II-XII grossly intact, no focal deficits, no slurring of speech Results - Labs CBC & Chem 7: 01/28/18 06:23 01/28/18 06:23 Laboratory Results - last 24 hr 01/28/18 01/28/18 06:23 06:23 WBC 15.3 H RBC 4.03 Hgb 12.9 Hct 38.1 MCV 94.5 MCH 31.9 MCHC 33.8 RDW 13.5 Plt Count 207 MPV 9.3 Neut % (Auto) 94.3 H Lymph % (Auto) 3.7 L [place] % (Auto) 1.9 Eos % (Auto) 0.0 Baso % (Auto) 0.1 Neut # (Auto) 14.4 H Lymph # (Auto) 0.6 L [place] # (Auto) 0.3 Eos # (Auto) 0.0 Baso # (Auto) 0.0 WBC Differential . Differential Comment Auto diff final Sodium 136 Potassium 4.2 Chloride 99 Carbon Dioxide 25.5 Anion Gap 12 BUN 26 H Creatinine 1.36 H Estimated GFR 37 L Random Glucose 274 H D Calcium 8.7 Total Bilirubin 0.4 AST 39 H ALT 28 Alkaline Phosphatase 137 H Total Protein 7.9 D Albumin 3.3 L Assessment and Plan - Plan Acute chest pain High risk due to history of CO, currently with elevated troponin level Onset of chest pain was twice and occurred during sleep Patient has a history of stent placement in [place], cannot recall which year She has a history of poor circulation in her legs, history of endarterectomy in 2009 Patient refused offer for cardiac catheterization and stent placement in the ER She remains short of breath and has had episodic chest pain overnight Now she has changed her mind and would like a cardiac catheterization Cardiology increased her Nitropaste Appreciate cardiology consult, will make patient n.p.o. tomorrow night Cough, COPD exacerbation She has been battling bronchitis for the last 2-3 weeks, completed Z-Art 1 week ago Crackles have expanded and lungs since admission, sounds edematous Patient received extra dose of Lasix 40 mg IV x1 today Continue with duo nebs and Solu-Medrol Budesonide nebs added to regimen Continue BiPAP as needed overnight Anxiety This is an exacerbating factor regarding her breathing and her chest pain Patient is receiving Xanax as needed CODE STATUS changed status to full code again DVT Prophylaxis Heparin
[2018-01-28] MEDS: Sertraline 50 MG Tablet PO SCH (20:20)
[2018-01-28] MEDS: Melatonin 5 MG Tablet PO PRN (23:01)
[2018-01-29] MEDS: MethylPREDNISolone Sod Succinate Inj 125 MG/2 ML Vial IV.PUSH SCH ×4 (02:01→21:23)
[2018-01-29] MEDS: Ketorolac Inj 30 MG/ML (IVP) Vial IV.PUSH PRN (02:16)
[2018-01-29] MEDS: Heparin - SQ 10,000 UNITS/ML Vial SQ SCH ×3 (03:33→21:24)
[2018-01-29] MEDS: ALPRAZolam 0.25 MG Tablet PO PRN (05:14)
[2018-01-29] MEDS: Metoprolol Tartrate 25 MG Tablet PO SCH ×2 (08:30→21:19)
[2018-01-29] MEDS: Sodium Chloride 0.9% 2 ML Flush BID IV.FLUSH SCH ×2 (08:31→21:22)
[2018-01-29 08:55] LABS: Potassium 4.6 meq/L (3.5-5.1)
--- NOTE | 2018-01-29 11:40 | P.PN ---
Subjective Interval history: Doing well, no further chest pain Physical Exam Vital signs: Vital Signs 01/28/18 15:25 01/28/18 16:00 01/28/18 19:39 Temperature 97.7 F 97.8 F Pulse Rate 98 H 108 H 104 H Respiratory Rate 16 18 18 Blood Pressure 102/76 147/72 H Pulse Oximetry 97 97 01/28/18 20:00 01/28/18 20:44 01/28/18 23:58 Temperature Pulse Rate 112 H 99 H 93 H Respiratory Rate 20 Blood Pressure Pulse Oximetry 99 01/29/18 00:00 01/29/18 00:04 01/29/18 04:00 Temperature 98.0 F 97.8 F Pulse Rate 96 H 94 H 104 H Respiratory Rate 17 18 18 Blood Pressure 151/85 H 162/90 H Pulse Oximetry 98 95 01/29/18 04:12 01/29/18 07:43 01/29/18 08:00 Temperature 97.3 F L Pulse Rate 90 102 H 104 H Respiratory Rate 18 16 18 Blood Pressure 159/91 H Pulse Oximetry 94 L 01/29/18 10:32 Temperature Pulse Rate Respiratory Rate Blood Pressure Pulse Oximetry 94 L Intake & Output 01/28/18 01/29/18 01/29/18 19:59 06:59 18:59 Weight Other: # Voids - Constitutional no acute distress - Routine HEENT Exam Head: Present: normocephalic Eye: Present: EOMI ENT: Present: mucous membranes moist - Routine Neck Exam Present: supple. Absent: JVD - Routine Respiratory Exam Present: CTA bilaterally. Absent: accessory muscle use - Routine Cardiovascular Exam Present: RRR. Absent: murmur - Routine Abdominal Exam Present: soft - Routine Extremities Exam Absent: edema Results - Labs CBC & Chem 7: 01/28/18 06:23 01/29/18 07:09 Laboratory Results - last 24 hr 01/29/18 07:09 Sodium 131 L Potassium 4.6 Chloride 94 L Carbon Dioxide 31.0 Anion Gap 6 BUN 39 H Creatinine 1.12 H Estimated GFR 47 L Random Glucose 223 H Calcium 9.0 Assessment and Plan - Assessment (1) Frail elderly Code(s): R54 - Age-related physical debility Status: Acute (2) COPD (chronic obstructive pulmonary disease) Code(s): J44.9 - Chronic obstructive pulmonary disease, unspecified Status: Acute (3) PAD (peripheral artery disease) Code(s): I73.9 - Peripheral vascular disease, unspecified Status: Acute (4) Acute CHF (congestive heart failure) Code(s): I50.9 - Heart failure, unspecified Status: Acute Plan: breathing better today, seems well compensated. (5) Acute non-ST elevation myocardial infarction (NSTEMI) Code(s): I21.4 - Non-ST elevation (NSTEMI) myocardial infarction Status: Acute Plan: no more chest pain overnight, she now would like a cath, Dr. Rivera aware plan for likely Tuesday cath - Plan pt npo past midnight in anticipation of likely cath tomorrow.
[2018-01-29] MEDS: diazePAM 5 MG Tablet PO SCH ×2 (12:00→21:20)
--- NOTE | 2018-01-29 15:23 | P.PNIM ---
Subjective Interval history: Patient has persisting anxiety today. She denies chest pain overnight though she did have some shortness of breath. She is planning for heart catheterization on Tuesday and will be n.p.o. overnight. Physical Exam Vital signs: Vital Signs 01/28/18 19:39 01/28/18 20:00 01/28/18 20:44 Temperature 97.8 F Pulse Rate 104 H 112 H 99 H Respiratory Rate 18 20 Blood Pressure 147/72 H Pulse Oximetry 97 99 01/28/18 23:58 01/29/18 00:00 01/29/18 00:04 Temperature 98.0 F Pulse Rate 93 H 96 H 94 H Respiratory Rate 17 18 Blood Pressure 151/85 H Pulse Oximetry 98 01/29/18 04:00 01/29/18 04:12 01/29/18 07:43 Temperature 97.8 F Pulse Rate 104 H 90 102 H Respiratory Rate 18 18 16 Blood Pressure 162/90 H Pulse Oximetry 95 01/29/18 08:00 01/29/18 10:32 01/29/18 11:49 Temperature 97.3 F L Pulse Rate 104 H 101 H Respiratory Rate 18 18 Blood Pressure 159/91 H Pulse Oximetry 94 L 94 L Intake & Output 01/28/18 01/29/18 01/29/18 19:59 06:59 18:59 Weight Other: # Voids Narrative: GENERAL: AAOx3, moderate distress, anxiety, mild tachypnea SKIN: Warm and dry. No rashes HEAD: Atruamtic, normocephalic. EYES: No scleral icterus. No injection or drainage. ENT: Moist mucous membranes, patent nares, no erythema of oropharynx. NECK: Supple, trachea midline. No JVD or lymphadenopathy. Normal thyroid. CARDIOVASCULAR: Regular rate and rhythm. No murmurs, gallops, or rubs. RESPIRATORY: Lungs are clear bilaterally. No accessory muscle use. GASTROINTESTINAL: Abdomen soft, non-tender, nondistended, normal active bowel sounds MUSCULOSKELETAL: No cyanosis, or edema. NEURO: CN II-XII grossly intact, no focal deficits, no slurring of speech Results - Labs CBC & Chem 7: 01/28/18 06:23 01/29/18 07:09 Laboratory Results - last 24 hr 01/29/18 07:09 Sodium 131 L Potassium 4.6 Chloride 94 L Carbon Dioxide 31.0 Anion Gap 6 BUN 39 H Creatinine 1.12 H Estimated GFR 47 L Random Glucose 223 H Calcium 9.0 Assessment and Plan - Plan Acute chest pain High risk due to history of VT, currently with elevated troponin level Onset of chest pain was twice and occurred during sleep Patient has a history of stent placement in [place], cannot recall which year She has a history of poor circulation in her legs, history of endarterectomy in 2009 Patient refused offer for cardiac catheterization and stent placement in the ER , now once heart catheterization Planning for heart catheterization on Tuesday with Dr. Rivera Appreciate cardiology consult Cough, COPD exacerbation She has been battling bronchitis for the last 2-3 weeks, completed Z-Art 1 week ago Lungs are clear again after receiving single dose of Lasix Continue with duo nebs and Solu-Medrol Budesonide nebs added to regimen Continue BiPAP as needed overnight Anxiety This is an exacerbating factor regarding her breathing and her chest pain Valium added his baseline, continuing Xanax for breakthrough CODE STATUS changed status to full code again DVT Prophylaxis Heparin
[2018-01-29] MEDS: Sertraline 50 MG Tablet PO SCH (21:19)
[2018-01-30] MEDS: Melatonin 5 MG Tablet PO PRN ×2 (00:12→22:46)
[2018-01-30] MEDS: MethylPREDNISolone Sod Succinate Inj 125 MG/2 ML Vial IV.PUSH SCH ×4 (01:04→22:43)
[2018-01-30] MEDS: Heparin - SQ 10,000 UNITS/ML Vial SQ SCH ×3 (04:15→22:43)
[2018-01-30 08:04] LABS: Carbon Dioxide 32.4 meq/L (21.0-32.0); Magnesium 2.3 mg/dL (1.5-2.5); Potassium 4.9 meq/L (3.5-5.1)
[2018-01-30] MEDS: Metoprolol Tartrate 25 MG Tablet PO SCH ×2 (08:53→22:44)
[2018-01-30] MEDS: Famotidine 20 MG Tablet PO SCH ×2 (08:53→22:45)
[2018-01-30] MEDS: diazePAM 5 MG Tablet PO SCH ×2 (08:53→22:45)
[2018-01-30] MEDS: Sodium Chloride 0.9% 2 ML Flush BID IV.FLUSH SCH ×2 (08:54→22:46)
[2018-01-30] MEDS: Ketorolac Inj 30 MG/ML (IVP) Vial IV.PUSH PRN (09:11)
--- NOTE | 2018-01-30 09:31 | P.PNCA ---
Subjective Interval history: Denies any chest pain. now c/o stomach pain Medications and Allergies Active Medications: Active Medications Acetaminophen (Tylenol) 650 mg PO Q4H PRN PRN Reason: Temp > 100.4 Hydrocodone Bitart/Acetaminophen ([place] 5/325) 1 tab PO Q6H PRN PRN Reason: PAIN 1-10 Last Admin: 01/30/18 00:46 Dose: 1 tab Albuterol (Duoneb Neb (Prn)) 1 ampul NEB Q2HR NEB PRN PRN Reason: sob/wheezing Last Admin: 01/28/18 02:30 Dose: 1 ampul Albuterol (Duoneb Neb (Jaden)) 1 ampul NEB Q4HR NEB [facility] Last Admin: 01/30/18 03:31 Dose: Not Given Alprazolam (Xanax) 0.25 mg PO Q8H PRN PRN Reason: Breakthrough Anxiety Last Admin: 01/29/18 05:14 Dose: 0.25 mg Aspirin (Aspirin Chew) 81 mg PO DAILY [facility] Last Admin: 01/30/18 08:53 Dose: 81 mg Atorvastatin Calcium (Lipitor) 40 mg PO DAILY [facility] Last Admin: 01/30/18 08:53 Dose: 40 mg Benzocaine/Menthol (Chloraseptic Sore Throat Lozenge) 1 lozenge BUCCAL Q4H PRN PRN Reason: SORE THROAT Last Admin: 01/26/18 15:42 Dose: 1 lozenge Budesonide (Pulmocort Respule Neb) 0.5 mg NEB Q12HR NEB [facility] Last Admin: 01/29/18 20:44 Dose: 0.5 mg Clopidogrel Bisulfate (Plavix) 75 mg PO DAILY [facility] Last Admin: 01/30/18 08:53 Dose: 75 mg Diazepam (Valium) 5 mg PO Q12HR [facility] Last Admin: 01/30/18 08:53 Dose: 5 mg Famotidine (Pepcid) 20 mg PO BID [facility] Last Admin: 01/30/18 08:53 Dose: 20 mg Furosemide (Lasix Inj) 40 mg IV.PUSH BID@0900,1800 [facility] Last Admin: 01/30/18 08:52 Dose: 40 mg Heparin Sodium (Porcine) (Heparin Inj) 5,000 units SQ Q8H [facility] Last Admin: 01/30/18 04:15 Dose: Not Given Ketorolac Tromethamine (Toradol Inj) 15 mg IV.PUSH Q6H PRN PRN Reason: Pleuritic Pain Last Admin: 01/30/18 09:11 Dose: 15 mg Levothyroxine Sodium (Synthroid) 25 mcg PO DAILY@0600 [facility] Last Admin: 01/30/18 06:24 Dose: Not Given Melatonin (Melatonin) 10 mg PO HS PRN PRN Reason: INSOMNIA Last Admin: 01/30/18 00:12 Dose: 10 mg Methylprednisolone Sodium Succinate (Solumedrol Inj) 60 mg IV.PUSH Q6H [facility] Last Admin: 01/30/18 08:52 Dose: 60 mg Metoprolol Tartrate (Lopressor) 25 mg PO BID [facility] Last Admin: 01/30/18 08:53 Dose: 25 mg Nitroglycerin (Nitrostat Sl) 0.4 mg SL Q5M PRN PRN Reason: CHEST PAIN Nitroglycerin (Nitro-Bid 2% Oint) 1 inch TOPICAL Q6HR [facility] Last Admin: 01/30/18 06:23 Dose: 1 inch Ondansetron HCl (Zofran Inj) 4 mg IV.PUSH Q6H PRN PRN Reason: NAUSEA OR VOMITING Potassium Chloride (K-Dur) 20 meq PO BID [facility] Last Admin: 01/30/18 08:53 Dose: 20 meq Sennosides (Senokot) 17.2 mg PO Q12H PRN PRN Reason: Moderate Constipation Last Admin: 01/30/18 09:15 Dose: 17.2 mg Sertraline HCl (Zoloft) 25 mg PO HS [facility] Last Admin: 01/29/18 21:19 Dose: 25 mg Sodium Chloride (Ns Flush) 2 ml IV.FLUSH UNSCH PRN PRN Reason: FLUSH AFTER USING IV ACCESS Last Admin: 01/30/18 00:18 Dose: 2 ml Sodium Chloride (Ns Flush) 2 ml IV.FLUSH BID [facility] Last Admin: 01/30/18 08:54 Dose: 2 ml Allergies Allergy/AdvReac Type Severity Reaction Status Date / Time No Known Allergies Allergy Verified 01/26/18 06:22 Home Medications Medication Instructions Recorded Confirmed Type aspirin [Aspir-Low] 81 mg PO 01/26/18 History carvedilol 25 mg PO BID 01/26/18 01/26/18 History levothyroxine 25 mcg PO DAILY 01/26/18 01/26/18 History losartan 25 mg PO DAILY 01/26/18 01/26/18 History sertraline [Zoloft] 25 mg PO HS 01/26/18 01/26/18 History tolterodine 1 mg PO HS 01/26/18 01/26/18 History Physical Exam Vital signs: Vital Signs 01/29/18 10:32 01/29/18 11:49 01/29/18 12:00 Temperature Pulse Rate 101 H 99 H Respiratory Rate 18 Blood Pressure Pulse Oximetry 94 L 01/29/18 15:51 01/29/18 16:00 01/29/18 19:58 Temperature 97.9 F Pulse Rate 105 H 108 H 105 H Respiratory Rate 16 18 Blood Pressure 114/75 Pulse Oximetry 94 L 01/29/18 20:00 01/29/18 20:44 01/29/18 23:25 Temperature 97.8 F Pulse Rate 104 H 113 H 91 H Respiratory Rate 20 16 Blood Pressure 111/64 Pulse Oximetry 98 97 01/30/18 00:00 01/30/18 00:45 01/30/18 03:53 Temperature 97.6 F Pulse Rate 94 H 102 H 98 H Respiratory Rate 20 16 Blood Pressure 97/77 L Pulse Oximetry 98 01/30/18 04:00 01/30/18 08:00 Temperature 98.0 F 97.2 F L Pulse Rate 100 H 97 H Respiratory Rate 20 18 Blood Pressure 131/87 133/82 Pulse Oximetry 96 98 Intake & Output 01/29/18 01/30/18 01/30/18 18:59 06:59 18:59 Intake Total 720 / 720 280 / 280 Output Total 1500 / 1500 Balance -780 / -780 280 / 280 Intake: Oral 720 / 720 280 / 280 Output: Urine 1500 / 1500 Other: # Voids 1 # Bowel Movements 0 Narrative: Alert NAD No JVD Chest diminished BS CV S1S2 RRR Abd - slight epigastric tenderness, no rebound no edeam Results 01/28/18 06:23 01/30/18 07:26 Comprehensive Metabolic Panel 01/29/18 01/30/18 Range/Units 07:09 07:26 Sodium 131 L 134 L (136-145) meq/L Potassium 4.6 4.9 (3.5-5.1) meq/L Chloride 94 L 93 L (98-107) meq/L Carbon Dioxide 31.0 32.4 H (21.0-32.0) meq/L BUN 39 H 37 H (7-18) mg/dL Creatinine 1.12 H 1.09 H (0.50-1.00) mg/dL Calcium 9.0 9.0 (8.5-10.1) mg/dL Intake and Output 01/29/18 01/30/18 01/30/18 22:59 06:59 14:59 Intake Total 720 / 720 280 / 280 Output Total 1500 / 1500 Balance -780 / -780 280 / 280 Intake: Oral 720 / 720 280 / 280 Output: Urine 1500 / 1500 Other: # Voids 1 # Bowel Movements 0 Assessment and Plan - Assessment (1) Frail elderly Code(s): R54 - Age-related physical debility Status: Acute Plan: She asked to be DNR. No cardiac cath (2) COPD (chronic obstructive pulmonary disease) Code(s): J44.9 - Chronic obstructive pulmonary disease, unspecified Status: Acute Plan: Last night severe CO2 retention. Heavy smoker in the past (3) PAD (peripheral artery disease) Code(s): I73.9 - Peripheral vascular disease, unspecified Status: Acute (4) Acute CHF (congestive heart failure) Code(s): I50.9 - Heart failure, unspecified Status: Acute Plan: Recheck echo in AM. Needs labs (5) Acute non-ST elevation myocardial infarction (NSTEMI) Code(s): I21.4 - Non-ST elevation (NSTEMI) myocardial infarction Status: Acute Plan: Cont ASA/clopidogrel/BB/nitrates/statin. Patient does not want cath today.
--- NOTE | 2018-01-30 17:42 | P.PNIM ---
Subjective Interval history: Patient was anxious again this morning and confused about why she was not undergoing a heart catheterization today. She has not had chest pain in the last 2 nights since her Nitropaste was increased. Physical Exam Vital signs: Vital Signs 01/29/18 19:58 01/29/18 20:00 01/29/18 20:44 Temperature 97.8 F Pulse Rate 105 H 104 H 113 H Respiratory Rate 20 16 Blood Pressure 111/64 Pulse Oximetry 98 97 01/29/18 23:25 01/30/18 00:00 01/30/18 00:45 Temperature 97.6 F Pulse Rate 91 H 94 H 102 H Respiratory Rate 20 16 Blood Pressure 97/77 L Pulse Oximetry 98 01/30/18 03:53 01/30/18 04:00 01/30/18 08:00 Temperature 98.0 F 97.2 F L Pulse Rate 98 H 100 H 90 Respiratory Rate 20 18 Blood Pressure 131/87 133/82 Pulse Oximetry 96 99 01/30/18 09:30 01/30/18 10:04 01/30/18 12:00 Temperature 97.1 F L Pulse Rate 97 H 73 Respiratory Rate 18 18 Blood Pressure 117/70 Pulse Oximetry 99 98 99 01/30/18 16:00 01/30/18 16:43 Temperature 97.7 F Pulse Rate 88 72 Respiratory Rate 18 17 Blood Pressure 140/77 Pulse Oximetry 97 Intake & Output 01/29/18 01/30/18 01/30/18 18:59 06:59 18:59 Intake Total 720 / 720 280 / 280 Output Total 1500 / 1500 Balance -780 / -780 280 / 280 Intake: Oral 720 / 720 280 / 280 Output: Urine 1500 / 1500 Other: # Voids 1 # Bowel Movements 0 Narrative: GENERAL: AAOx3, no acute distress, generalized anxiety SKIN: Warm and dry. No rashes HEAD: Atruamtic, normocephalic. EYES: No scleral icterus. No injection or drainage. ENT: Moist mucous membranes, patent nares, no erythema of oropharynx. NECK: Supple, trachea midline. No JVD or lymphadenopathy. Normal thyroid. CARDIOVASCULAR: Regular rate and rhythm. No murmurs, gallops, or rubs. RESPIRATORY: Breath sounds clear equal bilaterally. No crackles or wheezes. No accessory muscle use. GASTROINTESTINAL: Abdomen soft, non-tender, nondistended, normal active bowel sounds MUSCULOSKELETAL: No cyanosis, or edema. NEURO: CN II-XII grossly intact, no focal deficits, no slurring of speech Results - Labs CBC & Chem 7: 01/28/18 06:23 01/30/18 07:26 Laboratory Results - last 24 hr 01/30/18 01/30/18 07:26 07:26 Sodium 134 L Potassium 4.9 Chloride 93 L Carbon Dioxide 32.4 H Anion Gap 9 BUN 37 H Creatinine 1.09 H Estimated GFR 48 L Random Glucose 197 H Calcium 9.0 Magnesium 2.3 Cancelled Assessment and Plan - Plan Acute chest pain High risk due to history of [place], currently with elevated troponin level Onset of chest pain was twice and occurred during sleep Patient has a history of stent placement in [place], cannot recall which year She has a history of poor circulation in her legs, history of endarterectomy in 2009 Patient did not undergo cardiac catheterization on Tuesday but is prepared for one on Tuesday Appreciate cardiology consult Cough, COPD exacerbation She has been battling bronchitis for the last 2-3 weeks, completed Z-Art 1 week ago Lungs remain clear again after receiving single dose of Lasix Continue with duo nebs and Solu-Medrol Continue budesonide nebs Anxiety This is an exacerbating factor regarding her breathing and her chest pain Continue Valium as baseline and Xanax for breakthrough, affect slightly improved today CODE STATUS changed status to full code again DVT Prophylaxis Heparin Discharge planning Presumably cardiac catheterization is planned for tomorrow morning, she may be discharged after that when cleared by cardiology
[2018-01-30] MEDS: Sertraline 50 MG Tablet PO SCH (22:44)
[2018-01-31] MEDS: MethylPREDNISolone Sod Succinate Inj 125 MG/2 ML Vial IV.PUSH SCH ×4 (01:23→20:09)
[2018-01-31] MEDS: Heparin - SQ 10,000 UNITS/ML Vial SQ SCH ×2 (04:15→12:27)
--- NOTE | 2018-01-31 06:12 | XR ---
EXAM DATE: 01/31/2018 5:56 AM EST AGE/SEX: 82 years / Female INDICATIONS: Short of breath CLINICAL DATA: This is the patient's initial encounter. Patient reports that signs and symptoms have been present for 3 days and indicates a pain score of Nonresponsive. MEDICAL/SURGICAL HISTORY: Congestive heart failure. Non-responsive. COMPARISON: [facility] [place] 1V SINGLE AP, 01/27/2018. . FINDINGS: There are small bilateral effusions and slight parenchymal opacity in the lung bases. Cardiac contour s are unchanged. Interstitial prominence has decreased slightly. CONCLUSION: Slight improvement in aeration. Persistent small effusions Electronically signed by: Hal Fiore MD 01/31/2018 6:10 AM EST
[2018-01-31 07:06] LABS: Calcium 8.8 mg/dL (8.5-10.1); Carbon Dioxide 27.9 meq/L (21.0-32.0); Potassium 4.8 meq/L (3.5-5.1)
[2018-01-31] MEDS ORDERED: Sod Chloride 0.9% Inj 1,000 ML IV.CONT SCH ×2 (08:15→10:15)
[2018-01-31] MEDS: diazePAM 5 MG Tablet PO SCH ×2 (08:20→20:07)
--- NOTE | 2018-01-31 08:27 | P.PNCA ---
Subjective Interval history: Nurse called to tell me patient was made NPO by Dr. Dennison and now she wants a heart. I have spoken to her on admission and yesterday when she said she didn't want one. On admission she informed me she want to be DNR - she is not currently ordered DNR. She not wanted aggressive intervention until now. Has not had chest pain in last 3 days Medications and Allergies Active Medications: Active Medications Acetaminophen (Tylenol) 650 mg PO Q4H PRN PRN Reason: Temp > 100.4 Hydrocodone Bitart/Acetaminophen ([place] 5/325) 1 tab PO Q6H PRN PRN Reason: PAIN 1-10 Last Admin: 01/30/18 00:46 Dose: 1 tab Albuterol (Duoneb Neb (Prn)) 1 ampul NEB Q2HR NEB PRN PRN Reason: sob/wheezing Last Admin: 01/30/18 10:03 Dose: 1 ampul Albuterol (Duoneb Neb (Jaden)) 1 ampul NEB Q4HR NEB [facility] Last Admin: 01/31/18 03:30 Dose: 1 ampul Alprazolam (Xanax) 0.25 mg PO Q8H PRN PRN Reason: Breakthrough Anxiety Last Admin: 01/29/18 05:14 Dose: 0.25 mg Aspirin (Aspirin Chew) 81 mg PO DAILY [facility] Last Admin: 01/30/18 08:53 Dose: 81 mg Atorvastatin Calcium (Lipitor) 40 mg PO DAILY [facility] Last Admin: 01/30/18 08:53 Dose: 40 mg Benzocaine/Menthol (Chloraseptic Sore Throat Lozenge) 1 lozenge BUCCAL Q4H PRN PRN Reason: SORE THROAT Last Admin: 01/26/18 15:42 Dose: 1 lozenge Budesonide (Pulmocort Respule Neb) 0.5 mg NEB Q12HR NEB [facility] Last Admin: 01/30/18 20:15 Dose: 0.5 mg Clopidogrel Bisulfate (Plavix) 75 mg PO DAILY [facility] Last Admin: 01/30/18 08:53 Dose: 75 mg Diazepam (Valium) 5 mg PO Q12HR [facility] Last Admin: 01/30/18 22:45 Dose: 5 mg Diphenhydramine HCl (Benadryl) 25 mg PO [employer] [facility] Stop: 02/04/18 08:14 Famotidine (Pepcid) 20 mg PO BID [facility] Last Admin: 01/30/18 22:45 Dose: 20 mg Heparin Sodium (Porcine) (Heparin Inj) 5,000 units SQ Q8H [facility] Last Admin: 01/31/18 04:15 Dose: Not Given Sodium Chloride (Ns Inj) 1,000 mls @ 150 mls/hr IV.CONT .Q6H40M [facility] Ketorolac Tromethamine (Toradol Inj) 15 mg IV.PUSH Q6H PRN PRN Reason: Pleuritic Pain Last Admin: 01/30/18 09:11 Dose: 15 mg Levothyroxine Sodium (Synthroid) 25 mcg PO DAILY@0600 [facility] Last Admin: 01/31/18 06:18 Dose: Not Given Melatonin (Melatonin) 10 mg PO HS PRN PRN Reason: INSOMNIA Last Admin: 01/30/18 22:46 Dose: 10 mg Methylprednisolone Sodium Succinate (Solumedrol Inj) 60 mg IV.PUSH Q6H [facility] Last Admin: 01/31/18 01:23 Dose: 60 mg Metoprolol Tartrate (Lopressor) 25 mg PO BID [facility] Last Admin: 01/30/18 22:44 Dose: 25 mg Nitroglycerin (Nitrostat Sl) 0.4 mg SL Q5M PRN PRN Reason: CHEST PAIN Nitroglycerin (Nitro-Bid 2% Oint) 1 inch TOPICAL Q6HR [facility] Last Admin: 01/31/18 06:19 Dose: 1 inch Ondansetron HCl (Zofran Inj) 4 mg IV.PUSH Q6H PRN PRN Reason: NAUSEA OR VOMITING Sennosides (Senokot) 17.2 mg PO Q12H PRN PRN Reason: Moderate Constipation Last Admin: 01/30/18 09:15 Dose: 17.2 mg Sertraline HCl (Zoloft) 25 mg PO HS [facility] Last Admin: 01/30/18 22:44 Dose: 25 mg Sodium Chloride (Ns Flush) 2 ml IV.FLUSH UNSCH PRN PRN Reason: FLUSH AFTER USING IV ACCESS Last Admin: 01/30/18 00:18 Dose: 2 ml Sodium Chloride (Ns Flush) 2 ml IV.FLUSH BID [facility] Last Admin: 01/30/18 22:46 Dose: 2 ml Allergies Allergy/AdvReac Type Severity Reaction Status Date / Time No Known Allergies Allergy Verified 01/26/18 06:22 Home Medications Medication Instructions Recorded Confirmed Type aspirin [Aspir-Low] 81 mg PO 01/26/18 History carvedilol 25 mg PO BID 01/26/18 01/26/18 History levothyroxine 25 mcg PO DAILY 01/26/18 01/26/18 History losartan 25 mg PO DAILY 01/26/18 01/26/18 History sertraline [Zoloft] 25 mg PO HS 01/26/18 01/26/18 History tolterodine 1 mg PO HS 01/26/18 01/26/18 History Physical Exam Vital signs: Vital Signs 01/30/18 09:30 01/30/18 10:04 01/30/18 12:00 Temperature 97.1 F L Pulse Rate 97 H 73 Respiratory Rate 18 18 Blood Pressure 117/70 Pulse Oximetry 99 98 99 01/30/18 16:00 01/30/18 16:43 01/30/18 20:00 Temperature 97.7 F 97.4 F L Pulse Rate 88 72 88 Respiratory Rate 18 17 16 Blood Pressure 140/77 148/82 H Pulse Oximetry 97 95 01/30/18 20:19 01/30/18 23:45 01/31/18 00:00 Temperature 97.7 F Pulse Rate 97 H 87 84 Respiratory Rate 18 17 18 Blood Pressure 139/77 Pulse Oximetry 96 100 01/31/18 03:31 01/31/18 04:00 Temperature 97.4 F L Pulse Rate 80 93 H Respiratory Rate 16 16 Blood Pressure 131/91 H Pulse Oximetry 97 Intake & Output 01/30/18 01/31/18 01/31/18 18:59 06:59 18:59 Intake Total 708 / 708 Output Total 550 / 550 Balance 708 / 708 -550 / -550 Weight 64.8 kg Intake: Oral 708 / 708 Output: Urine 550 / 550 Other: # Voids 4 # Bowel Movements 1 Narrative: alert and orented Chest is clear CV S1S2 RRR no edema Results 01/28/18 06:23 01/31/18 06:30 Comprehensive Metabolic Panel 01/29/18 01/30/18 01/31/18 Range/Units 07:09 07:26 06:30 Sodium 131 L 134 L 130 L (136-145) meq/L Potassium 4.6 4.9 4.8 (3.5-5.1) meq/L Chloride 94 L 93 L 93 L (98-107) meq/L Carbon Dioxide 31.0 32.4 H 27.9 (21.0-32.0) meq/L BUN 39 H 37 H 43 H (7-18) mg/dL Creatinine 1.12 H 1.09 H 1.13 H (0.50-1.00) mg/dL Calcium 9.0 9.0 8.8 (8.5-10.1) mg/dL Intake and Output 01/30/18 01/31/18 01/31/18 22:59 06:59 14:59 Intake Total 708 / 708 Output Total 550 / 550 Balance 708 / 708 -550 / -550 Intake: Oral 708 / 708 Output: Urine 550 / 550 Other: # Voids 4 # Bowel Movements 1 Weight 64.8 kg - Imaging and Cardiology Imaging: Impressions Chest X-Ray 01/31/18 00:00 CONCLUSION: Slight improvement in aeration. Persistent small effusions Assessment and Plan - Assessment (1) Frail elderly Code(s): R54 - Age-related physical debility Status: Acute (2) COPD (chronic obstructive pulmonary disease) Code(s): J44.9 - Chronic obstructive pulmonary disease, unspecified Status: Acute Plan: Last night severe CO2 retention. Heavy smoker in the past (3) PAD (peripheral artery disease) Code(s): I73.9 - Peripheral vascular disease, unspecified Status: Acute (4) Acute CHF (congestive heart failure) Code(s): I50.9 - Heart failure, unspecified Status: Acute Plan: Currently compensated (5) Acute non-ST elevation myocardial infarction (NSTEMI) Code(s): I21.4 - Non-ST elevation (NSTEMI) myocardial infarction Status: Acute Plan: Cont ASA/clopidogrel/BB/nitrates/statin. Patient has decided she wants cath, poss PCI. Risks discussed.
[2018-01-31] MEDS ORDERED: Heparin/NS PF Inj 1,000 ML ONE (08:57)
[2018-01-31] MEDS ORDERED: Heparin 10,000 UNITS/10 ML Vial (for IV use) ONE (08:58)
[2018-01-31] MEDS ORDERED: fentaNYL Citrate Inj 100 MCG/2 ML Ampul ONE (08:58)
[2018-01-31] MEDS ORDERED: Lidocaine PF 1% Inj 30 ML Vial ONE (08:59)
[2018-01-31] MEDS ORDERED: Furosemide 40 MG Tablet PO SCH (09:00)
[2018-01-31] MEDS ORDERED: Misc Info for Pharmacy OTHER ONE (10:02)
--- NOTE | 2018-01-31 10:03 | CATHPROC ---
CS Products HIS Report Study Information Study Number Admission Scheduled Start Study Start [id number] Jan 26 2018 9:49AM 01/31/2018 Jan 31 2018 8:47AM [place] Service Cardiac Catheterization Admit Source Facility Department Emergency department [facility] - Home Health Care Worker Physician and Clinical Staff Initial Russel Cordon Campus Receptionist Sami Aguila,RN Campus Receptionist Kristan Joseph,ANDRADE Recorder Amina Ybarra,ECONOMIC RESEARCH ASSISTANT TECH2 Scrub Danyel Briscoe RCIS(BS) Procedures Performed Procedure Location (Site) Vessel Name Angiogram LV LV Ventricle Coronary Angiograms LCA Left Coronary Coronary Angiograms RCA Right Coronary L Heart Cath Wire insertion Radial (right) Radial Art. Equipment Time Line Rider Description Size Mfg Part Number Used/Scraped TRANSDUCER, TRUWAVE [id number] 08:50 ABRAHAM GRAMAJO * Used W/STOCKCOCK *[id number] WIRE, HYDROSTEER 260CM [id number] 09:23 DAIG[employer] 260CM Used ANGLED GLIDE *[id number] 08:50 MALLINCKRODT SYRINGE, ANGIOMAT 150ML 150ML *[id number] Used 2SUB [id number] 08:50 [employer] BLANKET,WARM AIR CCL * Used *[id number] 08:50 [employer] PACK, CCL CUSTOM * Used *[id number] 08:50 [employer] SUPPORT, ARTERIAL ADULT 07928 *[id number] Used [id number] 08:50 [email or web address] PACER PEN, SKIN DUAL W/ RULER * Used *[id number] PIG ANG 145 DXTERITY [id number] 09:37 [employer] FR 5 Used CATHETER *[id number] BAND, RADIAL COMPRESSION TR [id number] 09:46 [employer] MEDICAL 24CM Used SHORT 24 *[id number] 08:50 [employer] MEDICAL WIRE, EXCHANGE 260CM 3MMJ 260CM Used *[id number] 08:50 NAMIC MANIFOLD, 4 PORT * Used *[id number] 09:40 NAMIC TUBING, HIGH PRESSURE 48" 48" Used *[id number] 08:50 [employer] OMNIPAQUE, 350 MG, 100ML 100ML [id number] Used 09:41 [employer] OMNIPAQUE, 350 MG, 50ML 50ML [id number] Used 08:50 [employer] JELCO NEEDLE 4056 *[id number] Used CATHETER, FR5 OPTITORQUE [id number] 08:54 [employer] MED[employer] FR 5 Used RADIAL TIG 4.0 *[id number] SHEATH, FR6 TRANSRADIAL [id number] 08:50 TERZilikoO [employer] FR 6 Used SLENDER 10CM *[id number] Equipment Model, Serial, Lot Number and Expiration Data Description Model Number Serial Number Lot Number Expiration Date PIG ANG 145 DXTERITY CATHETER [id number] 07-21-2019 History: Current Medications Medication Dosage/Unit Route Frequency Last Date/Time Taken Statins (any) Beta Ayah ASA PLAVIX History: Allergies Allergy Reaction No Known Allergies History: Risk Factors Family History of Hypertension Dyslipidemia Previous IN Previous Heart Failure Premature CAD Yes Yes No Yes Yes Prior Valve Prior PCI Prior PCIDate Prior CABG Surgery No Yes 06/26/2016 No Cerebrovascular Peripheral Artery Chronic Lung On Dialysis Diabetes Disease Disease Disease No Yes Yes Yes No History: CV Disease Selection Items Known CAD IN History: Stress Tests Stress or Imaging Studies Performed No History: Other Disease Selection Items CAD HTN History: Other Current Smoker Method Quit Packs a Day Years Used Pack Years No Cigarettes 20 Years Ago 1 50 50 Labs Hgb (g/dl) Hct (%) WBC (l/cumm) Platelets (thousands) 11.60-17.00 35.00-51.00 4.00-11.00 150.00-450.00 12.9 38.1 15.3 207 Glucose (mg/dl) BUN (mg/dl) Creatinine (mg/dl) BUN:Creatinine (1:x) 74.00-106.00 7.00-18.00 0.50-1.30 10.00-20.00 202 43 1.1 39.1 Na (meq/l) K (meq/l) 136.00-145.00 3.50-5.10 130 4.8 Troponin I (ng/ml) CPK-MB (ng/ML) 0.02-0.05 0.50-3.60 0.75 Not Drawn Medication Medication Total Dose (Bolus/Oral) Medication Total Dosage/Unit 1% XYLOCAINE 10 mL RADIAL COCKTAIL 5 mL (Bolus) VERSED 1 mg Medications (Bolus/Oral) Medication Time Given Dosage/Unit Administered By Reason VERSED 01/31/2018 9:18:00 AM 1 mg Kristan Joseph 1 mg VERSED given in lab by Kristan Joseph RN in Left Antecubital via Peripheral IV. Ordered by Russel Hernández. 1% XYLOCAINE 01/31/2018 9:19:49 AM 10 mL Russel Rivera 10 mL 1% XYLOCAINE given in lab by Russel Rivera in Right Radial via Subcutaneous. Ordered by Russel Rivera. Ntg 200mcg Verapamil 2.5mg Heparin RADIAL COCKTAIL 01/31/2018 9:22:46 AM 5 mL (Bolus) Russel Rivera 2500U 5 mL (Bolus) RADIAL COCKTAIL given in lab by Russel Rivera in Right Radial via Radial. Using [Solutio n Name]. Ordered by Russel Rivera. Reason: Ntg 200mcg Verapamil 2.5mg Heparin 2500U. Medication (Drip) Medication Time Given Dosage/Unit Concentration/Unit Diluent (ml) Solution IV Solutions 01/31/2018 8:47:44 AM 0 mL (IV) 500 NaCl .9 IV Solutions given in lab by Sami Aguila RN via Peripheral IV. Pump/Drip Flow = 30 ml/hr using NaCl .9. Initial Case Assessment Cardiovascular HR Rhythm NIBP Chest Pain 92 reg 138/87 0 Edema Present Skin color Skin None Normal Warm Dry Circulatory - Right Pulses Dorsalis Pedis Femoral Radial 1 1 3 Scale (0,1,2,3,4,d) Circulatory - Left Pulses Dorsalis Pedis Femoral Radial 1 1 Scale (0,1,2,3,4,d) Circulatory - Lower Extremities Color Lower Right Color Lower Left Normal Normal Neurological State Oriented to time-place- Alert Moves all extremities person Respiration - General Respiration Rate SpO2 (%) (B/min) 9 94 Initial Case Assessment Cardiovascular HR Rhythm NIBP Chest Pain 88 reg 147/75 0 Edema Present Skin color Skin None Normal Warm Dry Circulatory - Right Pulses Dorsalis Pedis Radial 1 3 Scale (0,1,2,3,4,d) Circulatory - Left Pulses Dorsalis Pedis Radial 1 Scale (0,1,2,3,4,d) Circulatory - Lower Extremities Color Lower Right Color Lower Left Normal Normal Neurological State Oriented to time-place- Alert Moves all extremities person Respiration - General Respiration Rate SpO2 (%) (B/min) 17 94 Chronological Log Time Study Chronological Log 8:47:07 Patient arrived via Bed. 8:47:08 Patient Name, D.O.B, / Armband Verified By R.N. 8:47:09 Consent signed by the physician and the patient and verified by the Home Health Care Worker staff. 8:47:10 Pre-op and post- op instructions given; patient acknowledges understanding of instructions. 8:47:12 Presedation assessment performed by Home Health Care Worker RN. 8:47:29 Allens test performed on the right radial and ulnar artery. 8:47:33 Patient has been NPO for More than 6Hrs. 8:47:34 Skin Breakdown none reported or observed 8:47:35 Patient Warmer Placed on the Table. 8:47:40 Kavita Prominences Protected 8:47:43 A # 20 IV was noted in the Antecubital (left). Grade = 0 8:47:44 IV Solutions given in lab by Sami Aguila RN via Peripheral IV. Pump/Drip Flow = 30 ml/hr using NaCl .9. 8:47:45 History and physical on the chart or being dictated. Assessment: Initial Case, HR=92 BPM, Rhythm=reg, DDEF=156/87 mmhg, Chest Pain=0, Edema=None, Col or=Normal, Skin = Warm, Dry Right Pulses: Prince Ped=1, Femoral=1, Radial=3 Left Pulses: Prince Ped=1, Femoral=1 8:47:45 Lower Right Extremities: Color=Normal Lower Left Extremities: Color=Normal Neurological: State=Alert, Ox3, PUENTE Respiration: Resp=9 B/min, SpO2=94 % Vitals capture started with the following parameters, Patient=Adult, Interval=5 min, Initial Pre qwhhi=115 mmHg, 8:59:21 Deflation Rate=5 mmHg, Cuff placed on Left Arm 8:59:58 HR=93 bpm, PBFK=075/87 mmhg, SpO2=94 %, Resp=15 B/min, Pain=0, Lisbeth=10, Costello=2 9:04:59 HR=92 bpm, OMDI=564/80 mmhg, SpO2=94.0 %, Resp=15 B/min, Pain=0, Lisbeth=10, Costello=2 9:05:15 Right Radial and groin(s) prepped with 2% chlorhexidine, and draped after a 3 min. waiting t ron. 9:05:37 Reference ECG taken 9:10:00 HR=90 bpm, EMFM=778/82 mmhg, SpO2=95 %, Resp=15 B/min, Pain=0, Lisbeth=10, Costello=2 9:11:24 Pressure channel 1 zeroed. 9:14:57 HR=95 bpm, BROJ=598/91 mmhg, SpO2=94 %, Resp=15 B/min, Pain=0, Lisbeth=10, Costello=2 9:18:00 1 mg VERSED given in lab by Kristan Joseph RN in Left Antecubital via Peripheral IV. Orde red by Russel Rivera. Time Out. Correct patient, correct procedure, correct physician, labs, allergies, and equipment verified with concrete plant laborer 9:19:34 team present. Fire risk assesment completed (see hard stop sheet for coding). Time Out Concu rred by MD and individual staff in procedure. 9:19:39 Case Start 9:19:49 10 mL 1% XYLOCAINE given in lab by Russel Rivera in Right Radial via Subcutaneous. Ordered b y Russel Rivera. 9:19:58 HR=93 bpm, MAUB=303/84 mmhg, SpO2=94.0 %, Resp=17 B/min, Pain=0, Lisbeth=10, Costello=2 9:21:14 Access site was Right Radial Artery . A SHEATH, FR6 TRANSRADIAL SLENDER 10CM FR 6 was advanced into the Radial (right) using the Modif ied Seldinger 9:21:47 technique. 5 mL (Bolus) RADIAL COCKTAIL given in lab by Russel Rivera in Right Radial via Radial. Using [So lution Name]. 9:22:46 Ordered by Russel Rivera. Reason: Ntg 200mcg Verapamil 2.5mg Heparin 2500U. 9:24:49 A WIRE, HYDROSTEER 260CM ANGLED GLIDE 260CM was inserted via Radial (right). 9:25:01 HR=89 bpm, MDWE=160/56 mmhg, SpO2=93 %, Resp=15 B/min, Pain=0, Lisbeth=10, Costello=2 A CATHETER, FR5 OPTITORQUE RADIAL TIG 4.0 FR 5 was advanced over a wire. OMNIPAQUE, 350 MG, 100M L 100ML 9:25:14 was used for injections. Recorded Pressure: Ao, HR=88, Condition=Condition 1 9:29:50 (Aorta) Ao 142/76/103 9:29:56 HR=87 bpm, ZCIF=724/73 mmhg, SpO2=91.0 %, Resp=18 B/min, Pain=0, Lisbeth=10, Costello=2 9:31:14 The LCA was injected and visualized at various angles. OMNIPAQUE, 350 MG, 100ML 100ML used. 9:34:57 HR=88 bpm, HMRF=693/77 mmhg, SpO2=94 %, Resp=14 B/min, Pain=0, Lisbeth=10, Costello=2 9:36:12 The RCA was injected and visualized at various angles. OMNIPAQUE, 350 MG, 100ML 100ML used. After removing the current catheter a PIG ANG 145 DXTERITY CATHETER FR 5 was advanced over a WIR E, EXCHANGE 9:37:26 260CM 3MMJ 260CM. Recorded Pressure: LV, HR=88, Condition=Condition 1 9:39:12 (Left Ventricle) LV 162/24/32 9:40:00 HR=88 bpm, GCUO=541/81 mmhg, SpO2=93.0 %, Resp=19 B/min, Pain=0, Lisbeth=10, Costello=2 9:40:22 The LV was injected at 8 cc/sec for a total of 16. OMNIPAQUE, 350 MG, 50ML 50ML used. Recorded Pressure: LV, Ao, HR=88, Condition=Condition 1 9:41:54 (Left Ventricle) LV 157/25/34, (Aorta) Ao 155/77/109 9:44:07 Catheter was removed 9:44:16 Case End (Physician broke scrub) 9:44:59 HR=88 bpm, OJCT=366/75 mmhg, SpO2=94.0 %, Resp=17 B/min, Pain=0, Lisbeth=10, Costello=2 Assessment: Initial Case, HR=88 BPM, Rhythm=reg, ICYE=791/75 mmhg, Chest Pain=0, Edema=None, C olor=Normal, Skin = Warm, Dry Right Pulses: Prince Ped=1, Radial=3 Left Pulses: Prince Ped=1, Femoral=1 9:46:30 Lower Right Extremities: Color=Normal Lower Left Extremities: Color=Normal Neurological: State=Alert, Ox3, PUENTE Respiration: Resp=17 B/min, SpO2=94 % 9:47:03 Vitals capture stopped. 9:47:08 Catheter(s) removed without difficulty Radial Compression Device Used. 12 mLs of air placed in BAND, RADIAL COMPRESSION TR SHORT 24 2 4CM. Affected 9:47:10 hand 94 % O2 saturation. 9:47:56 No case complications noted. 9:47:58 Cine recording checked. 9:47:59 Bedside Report will be given. 9:48:05 A Left Heart Cath was performed. 9:50:20 Patient moved to [facility] End Study - Maximum Contrast Load Max Contrast Load (mL) 293.6 End Study - Radiation Exposure Fluoro Time (minutes) 8.2 End Study - Patient Disposition Complications Transferred To Telemetry Bed
--- NOTE | 2018-01-31 11:13 | MA ---
cc: Russel Rivera MD, Beth A MD DATE: 01/31/2018 INDICATIONS: Patricia Hernandez is an 82-year-old woman. She is noted to have severe vascular disease with no palpable pedal pulses. She came in with a non-STEMI initially and wanted to be a DNR. It ut does not look to me that the DNR was actually ordered even that was discussed by Dr. Murdock and myself. Her hospitalist has been encouraging her to have a heart catheterization. She declined it up until now, but this morning said she would go ahead with it. I thought it was reasonable to define her anatomy so we could at least determine if she is fixable and has not had any therapeutic options. PROCEDURES PERFORMED: Left heart catheterization, left ventriculography, coronary angiography, right radial arterial approach. DESCRIPTION OF PROCEDURE: The patient was brought to the cardiac catheterization lab in a fasting state. She received 1 mg of Versed for additional sedation. Using 1% lidocaine for local anesthesia I was able to access the right radial artery with a Jelco needle and insert a 20 mL slender sheath. I had to use a Glidewire to navigate through difficult anatomy in the elbow. Also difficult anatomy in a shoulder and difficult anatomy at the origin of the innominate artery, but was able to get into the ascending aorta. Catheter was advanced over the wire and I was unable to perform her catheterization with the Hardin catheter. I switched to an angled pigtail catheter for an LV gram and a pullback. I was going to try to negotiate the pigtail catheter into the descending aorta, but the angle was unfavorable and I opted not to persist at this point. The catheter was removed over wire and a placed. FINDINGS: HEMODYNAMICS: Left ventricular pressure is 157/25 with an end diastolic pressure of 34. Aortic pressure is 155/77 with a mean of 109. There was no gradient during pullback from the left ventricle to the aorta. LEFT VENTRICULOGRAPHY: Left ventriculography shows an extensive area of posterobasal akinesis. 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 Ejection fraction is only about 30%. CORONARY ANGIOGRAPHY: The left main coronary artery has some unusual orientation and angulation. It appears irregular. The LAD appears to come off in a 90-degree angle from the left main and then has a pretty sharp bend in it. There is about 30% ostial LAD disease. The mid and distal LAD are severely and diffusely diseased. There is 60% mid, 80% mid, and sequential 90% distal lesions. The LAD does wrap around the apex. Circumflex artery appears dominant. There is a 99% ostial stenosis. There was only ROSA grade 1 flow. There is 1 large marginal branch that eventually fills adequately that could be grafted. The flow in the circumflex artery was poor so it was difficult to see additional lesions in the circumflex. There are 2 ramus intermedius branches, 1 of which has 90% proximal disease. The right coronary artery is nondominant and small and irregular. IMPRESSION: 1. Severely impaired LV function, EF 30%, evidence for infarctions corresponding to the dominant circumflex and the distal LAD. 2. Elevated left ventricular end-diastolic pressure. 3. Critical coronary artery disease. RECOMMENDATIONS: We will get a cardiac surgical consult. I think we will find that she is not a surgical candidate, probably best to pursue hospice. I will have one of my partners overlook her films, but I do not see that she is a suitable candidate for coronary revascularization percutaneously. MD GABINO Douglas/ , 10:01 AM , 10:09 AM
[2018-01-31] MEDS ORDERED: Iohexol 350 MG/ML 100 ML Vial (for Cath Lab) IVCONTRAST ONE (11:56)
[2018-01-31] MEDS: Metoprolol Tartrate 25 MG Tablet PO SCH ×2 (12:09→20:12)
[2018-01-31] MEDS: Famotidine 20 MG Tablet PO SCH ×2 (12:10→20:01)
[2018-01-31] MEDS: Sodium Chloride 0.9% 2 ML Flush BID IV.FLUSH SCH ×2 (12:10→20:10)
[2018-01-31] MEDS ORDERED: Metoprolol Tartrate 25 MG Tablet PO ONE (12:15)
[2018-01-31] MEDS ORDERED: Chlorhexidine Gluconate 2% 1 Pack (2 Cloths) TOPICAL ONE (12:15)
[2018-01-31] MEDS ORDERED: Sodium Chlor 0.9% Inj 500 ML IV.SIG SCH (13:00)
--- NOTE | 2018-01-31 13:53 | P.CONPAL ---
Consult Service: Palliative Care Requesting Physician: Russel Rivera Reason for Consult: a. To assist with evaluation and management of symptoms including:pain, dyspnea , debility b. To assist medical decision maker(s) with: better understanding of current medical conditions; weighing benefits/burdens of medical treatment options; making medical treatment decisions. Primary Care Provider: UNKNOWN History of Present Illness History of Present Illness: Mrs. Hernandez is a 82yo female who presented to [place] [facility] via EMS on 01/26/18 with complaints of chest pain and shortness of breath. She has a past medical history significant for coronary artery disease, peripheral vascular disease, NV with stent placement she is unsure of the year, and a CVA following an endarterectomy in approximately 2009. The patient states that she also has had declining functional status complaining of pain in her legs is been increasingly getting worse. The patient states that she has been waking nightly with central substernal chest pain which is made worse with deep inspiration for the past 2-3 nights. States that she tried to call the nurse concrete products dispatcher as well as her physician was unable any clarification or return call. By the third night she decided to call 911 and presented to the emergency room for further evaluation and treatment. Initial emergency room evaluation revealed: * Temp 97.8, pulse 85, respiratory rate 18, BP 112/67, pulse ox 96% on room air * WBC 9.0, RBC 3.62, Hgb 11.6, HCT 34.1, platelets 181 * NA 142, K+ 4.2, CL 103, CO2 30, BUN 13, creatinine 0.80, glucose 115 * BNP 563, troponin 0 0.34, total creatine kinase 57 * Chest CTA: No evidence of pulmonary embolism. Minimal atelectasis both lung bases * CXR: No acute cardiopulmonary disease demonstrated. * EKG: Possible left arterial enlargement moderate T wave abnormality consider lateral ischemia abnormal EKG Full cardiac workup was initiated starting the emergency room given the elevated troponins. CT angiogram was negative for PE. The patient was given fentanyl for pain relief as well as Nitropaste and cardiology was consulted. Per report the patient originally stated she wanted to be a DNR and the decision was made to hold off on cardiac catheterization. On 01/31/18 the patient decided that she would like to move forward with heart catheterization. Dr. Rivera performed left heart catheterization with left ventriculography, coronary angiography using a right radial approach and attempt to find her anatomy given her extensive cardiovascular disease. Patient tolerated the procedure well that was found that she had severely impaired LV function with an EF of 30% as well as evidence for infarctions corresponding to the dominant circumflex in the distal LAD. Records from her previous legal recovery specialist from January 2017 state an EF of 60-70% at that time. Palliative care was consulted to assist with symptom management and to clarify goals of care. Upon examination the patient was agitated and upset as she fell no one was listening to her. She appeared somewhat confused she knew herself and knew that she was in the at first remember the year later in the conversation she was able to use 2018. In recounting her medical history she periods of time with before she was to after her is deaf and then back to a time during their separation. She verbalized that she would want anything that could be done for her to be done. We discussed the findings of her heart catheterization and she was informed that Dr. Rivera felt she was most likely not a surgical candidate at this time. She discussed how she has had siblings who were in "worse shape than she was" and was able to be revascularized. She also stated that 2-3 years ago she was told her heart function was fine. We discussed that given her current heart function and somewhat rapid rate of decline she had a poor prognosis from this point forward. She did seem to processes information and stated that it is to be as comfortable as possible but she also would like full aggressive care. Function/Cognitive Trajectory: Prior to this admission the patient was current was living in her own apartment. He states she had a difficult time with ambulation due to increased leg pain. She does have a walker but mostly ambulated with a cane. She states there most days she was barely able to ambulate from bed to the bathroom. She states that there were times where she would just get up out of bed make something to eat to take her medications and go back to bed. She states that she was increasingly tired and complained of increasing leg pain with ambulation. She states 1 of her daughters would come by weekly to take her grocery shopping but she did the cooking cleaning and all other ADLs to the best of her ability. Review of Systems Constitutional: Reports fatigue Cardiovascular: Reports chest pain, Reports shortness of breath with activity Respiratory: Reports cough Musculoskeletal: Reports abnormal walking, Reports numbness PMFSH - History History Provided By: Patient - Medical History Medical History: Medical History (Last Updated 01/31/18 @ 15:11 by NORMA Duenas) CAD (coronary artery disease) COPD (chronic obstructive pulmonary disease) High cholesterol Hypertension PVD (peripheral vascular disease) Stroke - Surgical History Surgical History: Surgical History (Last Reviewed 01/31/18 @ 08:40 by Jonna Willard) H/O endarterectomy Status post laser cataract surgery of both eyes - Family History Family History: Family History (Last Updated 01/31/18 @ 15:12 by NORMA Duenas) Brother Myocardial infarct Sister Myocardial infarct Other Hypertension - Social History I have reviewed the patient's Social History: Yes - Tobacco History Second Hand Smoke Exposure: No Tobacco Use In Past 30 Days: No Smoking Status: Former smoker Tobacco Type: Cigarettes - Alcohol History How Often Do You Have a Drink Containing Alcohol: Never - Substance Use History Substance History: No History of Abuse - Travel History History of Recent Travel: No Recent Travel in the [place] Within the Last 8 Weeks: No Recent Travel Out of the Country Within the Last 8 Weeks: No - Immunization History Tetanus Immunization: Unsure Hx Influenza Vaccine This Season: No Medications and Allergies Active Medications: Active Medications Acetaminophen (Tylenol) 650 mg PO Q4H PRN PRN Reason: Temp > 100.4 Hydrocodone Bitart/Acetaminophen (Mchenry 5/325) 1 tab PO Q6H PRN PRN Reason: PAIN 1-10 Last Admin: 01/31/18 10:43 Dose: 1 tab Albuterol (Duoneb Neb (Prn)) 1 ampul NEB Q2HR NEB PRN PRN Reason: sob/wheezing Last Admin: 01/30/18 10:03 Dose: 1 ampul Albuterol (Duoneb Neb (Jaden)) 1 ampul NEB Q4HR NEB JADEN Last Admin: 01/31/18 11:20 Dose: Not Given Alprazolam (Xanax) 0.25 mg PO Q8H PRN PRN Reason: Breakthrough Anxiety Last Admin: 01/29/18 05:14 Dose: 0.25 mg Aspirin (Aspirin Chew) 81 mg PO DAILY JADEN Last Admin: 01/31/18 08:29 Dose: 81 mg Atorvastatin Calcium (Lipitor) 40 mg PO DAILY JADEN Last Admin: 01/31/18 12:09 Dose: Not Given Benzocaine/Menthol (Chloraseptic Sore Throat Lozenge) 1 lozenge BUCCAL Q4H PRN PRN Reason: SORE THROAT Last Admin: 01/26/18 15:42 Dose: 1 lozenge Budesonide (Pulmocort Respule Neb) 0.5 mg NEB Q12HR NEB [facility] Last Admin: 01/31/18 08:21 Dose: 0.5 mg Chlorhexidine Gluconate (Chlorhexidine 2% Cloth) 3 pack TOPICAL INSULATION ESTIMATOR ONE Stop: 01/31/18 12:16 Clopidogrel Bisulfate (Plavix) 75 mg PO DAILY [facility] Last Admin: 01/31/18 08:29 Dose: 75 mg Diazepam (Valium) 5 mg PO Q12HR [facility] Last Admin: 01/31/18 08:20 Dose: 5 mg Diphenhydramine HCl (Benadryl) 25 mg PO INSULATION ESTIMATOR [facility] Stop: 02/04/18 08:14 Famotidine (Pepcid) 20 mg PO BID [facility] Last Admin: 01/31/18 12:10 Dose: Not Given Heparin Sodium (Porcine) (Heparin Inj) 5,000 units SQ Q8H [facility] Last Admin: 01/31/18 12:27 Dose: Not Given Sodium Chloride (Ns Inj) 1,000 mls @ 150 mls/hr IV.CONT .Q6H40M [facility] Sodium Chloride (Ns Inj) 1,000 mls @ 100 mls/hr IV.CONT .Q10H [facility] Stop: 01/31/18 22:14 Lactated Ringer's (Lr 1000 Ml Inj) 1,000 mls @ 30 mls/hr IV.SIG .Q24H [facility] Stop: 02/01/18 12:14 Sodium Chloride (Ns Inj) 500 mls @ 30 mls/hr IV.SIG .Q10H [facility] Ketorolac Tromethamine (Toradol Inj) 15 mg IV.PUSH Q6H PRN PRN Reason: Pleuritic Pain Last Admin: 01/30/18 09:11 Dose: 15 mg Levothyroxine Sodium (Synthroid) 25 mcg PO DAILY@0600 [facility] Last Admin: 01/31/18 06:18 Dose: Not Given Melatonin (Melatonin) 10 mg PO HS PRN PRN Reason: INSOMNIA Last Admin: 01/30/18 22:46 Dose: 10 mg Methylprednisolone Sodium Succinate (Solumedrol Inj) 60 mg IV.PUSH Q6H [facility] Last Admin: 01/31/18 08:20 Dose: 60 mg Metoprolol Tartrate (Lopressor) 25 mg PO BID [facility] Last Admin: 01/31/18 12:09 Dose: 25 mg Metoprolol Tartrate (Lopressor) 25 mg PO INSULATION ESTIMATOR ONE Stop: 01/31/18 12:16 Miscellaneous Information ([facility] [place] [facility] [place] 1 each OTHER ONCE ONE Stop: 01/31/18 12:16 Nitroglycerin (Nitrostat Sl) 0.4 mg SL Q5M PRN PRN Reason: CHEST PAIN Nitroglycerin (Nitro-Bid 2% Oint) 1 inch TOPICAL Q6HR [facility] Last Admin: 01/31/18 06:19 Dose: 1 inch Ondansetron HCl (Zofran Inj) 4 mg IV.PUSH Q6H PRN PRN Reason: NAUSEA OR VOMITING Povidone Iodine (Betadine 5% Antisepsis Kit) 1 applicatio EACH NARE INSULATION ESTIMATOR ONE Stop: 01/31/18 12:16 Sennosides (Senokot) 17.2 mg PO Q12H PRN PRN Reason: Moderate Constipation Last Admin: 01/30/18 09:15 Dose: 17.2 mg Sertraline HCl (Zoloft) 25 mg PO [facility] Last Admin: 01/30/18 22:44 Dose: 25 mg Sodium Chloride (Ns Flush) 2 ml IV.FLUSH UNSCH PRN PRN Reason: FLUSH AFTER USING IV ACCESS Last Admin: 01/30/18 00:18 Dose: 2 ml Sodium Chloride (Ns Flush) 2 ml IV.FLUSH BID [facility] Last Admin: 01/31/18 12:10 Dose: 2 ml Allergies Allergy/AdvReac Type Severity Reaction Status Date / Time No Known Allergies Allergy Verified 01/26/18 06:22 Home Medications Medication Instructions Recorded Confirmed Type aspirin [Aspir-Low] 81 mg PO 01/26/18 History carvedilol 25 mg PO BID 01/26/18 01/26/18 History levothyroxine 25 mcg PO DAILY 01/26/18 01/26/18 History losartan 25 mg PO DAILY 01/26/18 01/26/18 History sertraline [Zoloft] 25 mg PO HS 01/26/18 01/26/18 History tolterodine 1 mg PO HS 01/26/18 01/26/18 History Advance Directives Living Will: No Healthcare Surrogate: No Power of Center Receptionist: No Documented care wishes: The patient does not have a documented living will or DURABLE POWER OF INDUSTRIAL PAINTER Today's verbally stated goals: The patient was able to state that she would like everything done for her possible. She endorses aggressive measures. She does verbalize that if there was absolutely no hope or if she was in a terminal condition she would not want heroic measures. We discussed should her condition declined again and warrant cardiopulmonary resuscitation if she would want that. The risk, benefits and burdens of CPR was discussed in detail with the patient. She verbalized that she would want to remain a full code at this time Family/friends goals: Discussed case with patient's daughter Meche Smith. She was somewhat taken back by the report that I reviewed with her concerning her mother's left heart catheterization. Verbalizes that at this time she would like for her mother to be a full code and finds it difficult to discuss the her probable decline. She would like to have her mother evaluated by the cardiothoracic surgeon to see if there are any other available treatment options. She also verbalized that her mother does get quite confused at times and is not able to fully comprehend the ramifications of medical decisions that she makes. Ethical and Legal Issues: The absent of a documented living well, per [place] statutes should the patient become incapacitated any time decision making would fall her adult children, Mattie Smith [phone] and Nila Clark [phone]. It does not appear at this time but the patient has complete insight into her medical conditions and prognosis. Physical Exam Vital Signs: Vital Signs - 24 hr 01/30/18 16:00 01/30/18 16:43 01/30/18 20:00 Temperature 97.7 F 97.4 F L Pulse Rate 88 72 110 H Respiratory Rate 18 17 16 Blood Pressure 140/77 148/82 H Pulse Oximetry 97 95 01/30/18 20:19 01/30/18 23:45 01/31/18 00:00 Temperature 97.7 F Pulse Rate 97 H 87 85 Respiratory Rate 18 17 18 Blood Pressure 139/77 Pulse Oximetry 96 100 01/31/18 03:31 01/31/18 04:00 01/31/18 08:00 Temperature 97.4 F L 97.6 F Pulse Rate 80 93 H 99 H Respiratory Rate 16 16 22 Blood Pressure 131/91 H 120/82 Pulse Oximetry 97 99 01/31/18 08:23 01/31/18 10:02 Temperature Pulse Rate 92 H Respiratory Rate 18 Blood Pressure Pulse Oximetry 97 96 I&O: Intake & Output 01/29/18 01/30/18 01/31/18 02/01/18 06:59 06:59 06:59 06:59 Intake Total 1000 / 1000 708 / 708 Output Total 1500 / 1500 550 / 550 Balance -500 / -500 158 / 158 Weight 64.8 kg Physical Exam: CONSTITUTIONAL/GENERAL: This is an adequately nourished patient, in no apparent distress. TUBES/LINES/DRAINS: PIV SKIN: No jaundice, rashes, or lesions. Ecchymoses on upper extremities. No wounds seen anteriorly. Skin temperature appropriate. Not diaphoretic. HEAD: Atraumatic. Normocephalic. EYES: Pupils equal and round and reactive. Extraocular motions intact. No scleral icterus. No injection or drainage. Fundi not examined. ENT: Hearing grossly normal. Nose without bleeding or purulent drainage. Throat without visible erythema, exudates, masses, or lesions. NECK: Trachea midline. Supple, nontender. No palpable thyroid enlargement or nodularity. CARDIOVASCULAR: Regular rate and rhythm without murmurs, gallops, or rubs. Bilateral pedal pulses absent RESPIRATORY/CHEST: Clear to auscultation. Breath sounds equal bilaterally, diminished at the bases GASTROINTESTINAL: Abdomen soft, non-tender, nondistended. No hepato-splenomegaly , or palpable masses. No guarding. Bowel sounds present. GENITOURINARY: Without palpable bladder distension. MUSCULOSKELETAL: Extremities without clubbing, cyanosis, or edema. No joint tenderness or effusion noted. No calf tenderness. No mottling or clubbing. LYMPHATICS: No palpable cervical or supraclavicular adenopathy. NEUROLOGICAL: Awake and alert. Motor and sensory grossly within normal limits. Follows commands. Moves all extremities. Does appear confused PSYCHIATRIC: No obvious anxiety/depression. no apparent hallucinations or other psychotic thought process. Diagnostic Tests Laboratory: Laboratory Results - last 72 hr 01/29/18 01/30/18 01/30/18 07:09 07:26 07:26 Sodium 131 L 134 L Potassium 4.6 4.9 Chloride 94 L 93 L Carbon Dioxide 31.0 32.4 H Anion Gap 6 9 BUN 39 H 37 H Creatinine 1.12 H 1.09 H Estimated GFR 47 L 48 L Random Glucose 223 H 197 H Calcium 9.0 9.0 Magnesium 2.3 Cancelled 01/31/18 06:30 Sodium 130 L Potassium 4.8 Chloride 93 L Carbon Dioxide 27.9 Anion Gap 9 BUN 43 H Creatinine 1.13 H Estimated GFR 46 L Random Glucose 202 H Calcium 8.8 Magnesium Result Diagrams: 01/28/18 06:23 01/31/18 06:30 Imaging: Impressions Chest X-Ray 01/31/18 00:00 CONCLUSION: Slight improvement in aeration. Persistent small effusions Procedures: 01/31/18 * Left heart catheterization Patient/Family Conference Present at Family Conference: Latricia Smith, daughter [phone] Family Conference Location: Telephone Issues Discussed: * Palliative care role, purpose, approach * Additional medical, psychosocial, and spiritual history * Patients general health, functional status, and cognitive changes in the months leading up to the current hospitalization * Patient/family understanding of the current medical problems * Patient/family understanding of prognosis * Patients goals of care as best understood from advance directives and/or conversations and/or values * Current medical treatment options and benefits/burdens of those options * Likely scenarios comparing ongoing aggressive care with a transition to comfort measures only * Questions answered to the best of my ability * Palliative care contact information provided In summary it does not appear that the patient has full insight to fully comprehend the ramifications of her medical decision making, diagnosis and prognosis. She was able to verbalize that should she be in a terminal or end- stage condition she would not want heroic measures. She also verbalized that she would like to remain a full code at this time and feels that there should be some other treatment modalities available to her. In speaking with her daughter Meche Smith, she was somewhat dismayed to learn the progression of her mother's cardiovascular disease. We will that there would be some treatment modalities available to her mother in order to prolong her life. At this time the family would like for the patient to remain a full code and speak with the cardiothoracic surgeon. At that point they would be able to further discern the next course of action. 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 She met her who was there working with an [employer]. The couple was and later moved to [place]. She was from her for some time [place] with her twin daughters. 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 Her in 1991 and at that point she had originally made plans to move back to [place] but ended up in [place] with 1 of her daughters. Spiritual: none Legal: In the absence of documented living will, per [place] statutes to the patient become incapacitated any time decision making would fall to the majority of her adult children. Her two daughters are Mattie Smith [phone] and Nila Clark [phone] Ethical issues impacting care: There are currently no known ethical issues impacting care at this time. Important Contacts: Latricia Smith, daughter [phone] Nila Clark [phone] Prognosis: Patient has had progressive cardiac decline over the past year with an EF of 30 % and severe coronary arterial disease. Her functional ability has also declined over the past year. Given her age and advanced cardiac disease she is definitely at increased risk for repeat myocardial infarctions and the associated sequelae including increased morbidity and mortality Code Status: Full Code Plan: * LEGAL DECISION MAKER -the patient appears to have limited insight into her diagnosis and ramification of medical decision making. In the absence of a documented living will per [place] statutes decision making would fall to her adult children. She has 2 daughters Latricia Smith [phone] and Nila Clark [phone] * GOALS - In summary it does not appear that the patient has full insight to fully comprehend the ramifications of her medical decision making, diagnosis and prognosis. She was able to verbalize that should she be in a terminal or end-stage condition she would not want heroic measures. She also verbalized that she would like to remain a full code at this time and feels that there should be some other treatment modalities available to her. In speaking with her daughter Meche Smith, she was somewhat dismayed to learn the progression of her mother's cardiovascular disease. We will that there would be some treatment modalities available to her mother in order to prolong her life. At this time the family would like for the patient to remain a full code and speak with the cardiothoracic surgeon. At that point they would be able to further discern the next course of action. * CODE STATUS -FULL CODE * SYMPTOMS Pain -patient currently denies pain at this time. She complains that her pain is mostly in her legs due to ambulation. The chest pain she states has resolved since having a cardiac catheterization. Morphine was recently discontinued from the patient's chart and currently has orders for hydrocodone 5 /325 mg every 6 hours as needed. Patient appears to be using it once per day no further recommendations at this time. Dyspnea -patient currently on 4 L nasal cannula denies any shortness of breath or increased work of breathing. Was not on oxygen at home. May require supplemental oxygen from here on out considering how quickly her heart function has decompensated. Continue with good pulmonary toilet and nebulizer treatments as needed to keep O2 sats above 92% Debility -frail-appearing elderly woman. Functional status has been decreasing over time. Patient plan for discharge is to SNF which is appropriate this time. Would benefit from physical therapy within reason. Palliative care will continue to follow during hospital course as condition evolves, to assist patient/decision maker with understanding of medical conditions, weighing benefits/burdens of treatment options, for clarification of goals of treatment. Additionally will assist with any symptoms of palliative concern. Case discussed with Dr. Rivera Appreciation Thank you for the opportunity to participate in the care of Patricia Hernandez. Attestation Attestation: To help prompt me to consider important information that might be impacting today's encounter and assessment, information from prior notes written by myself or my colleagues may have been "brought forward" into today's note. My signature on this note, however, is an attestation that I personally performed the exam, history, and/or decision-making noted today, and, unless otherwise indicated, the interactions with patient, family, and staff as well as the review of records all occurred today. I also attest that the listed assessment and stated plan reflect my best clinical judgment today based on the combination of historical information, prior notes, and today's exam/ interactions. When time spent is documented, it refers only to time spent today by the signer, or if indicated, combined time spent today by collaborating physician/nurse practitioner.
--- NOTE | 2018-01-31 15:26 | MB ---
cc: Nadja Magdaleno MD DATE: 01/31/2018 HISTORY OF PRESENT ILLNESS: An 82-year-old female who presented with a non-STEMI; troponins at 0.75. Initially wanted to be a DO NOT RESUSCITATE; initially declined having a heart catheterization, but then consented to go ahead. She underwent cardiac catheterization this morning by Dr. Russel Rivera, which showed an ejection fraction of 30%. Extensive area of posterior basal akinesis; 30% ostial LAD, mid distal LAD was severely and diffusely diseased. There were 60%-80% mid, sequential 90% distal lesions. There was a 99% ostial stenosis in the circumflex and there were 2 ramus intermedius branches, one which had a 90% proximal disease. The RCA was nondominant, small and irregular her. We were consulted to evaluate for coronary artery bypass grafting. PAST MEDICAL HISTORY: Includes COPD, longstanding history of tobacco abuse, hypertension, hyperlipidemia. She had a CVA at age 63 after left carotid endarterectomy, peripheral arterial disease. PAST SURGICAL HISTORY: Left carotid endarterectomy. ALLERGIES: NO KNOWN ALLERGIES. MEDICATIONS: She has been somewhat noncompliant with her home medications, but was on: 1. Coreg 6.25 b.i.d. 2. Losartan 25 daily. 3. Aspirin. FAMILY HISTORY: She has had 3 siblings, all with history of bypass grafting. SOCIAL HISTORY: She is . She has 2 daughters. She smoked from the age of a teenager to age 61. REVIEW OF SYSTEMS: As noted below, some memory difficulties, some arthritic pain. PHYSICAL EXAMINATION: VITAL SIGNS: Blood pressure 120/80, heart rate is 92, afebrile, O2 saturation 97 on 4 liters. GENERAL: The patient is awake, alert, slightly short of breath when she is talking. HEENT: Head is normocephalic, atraumatic. Pupils are equal and reactive; oral mucosa pink, moist. NECK: Supple. No JVD. HEART: Sounds S1, S2. Regular rate and rhythm. No audible murmurs or rubs. LUNGS: Diminished in the bases, otherwise few crackles. ABDOMEN: Soft, nontender. EXTREMITIES: Reveal absent palpable pedal pulses. She has some mild lower extremity edema. LABORATORY DATA: Her lab shows hemoglobin 12.9, hematocrit 38, white cell count of 15, platelet count of 207. Sodium 130, potassium 4.8, BUN of 43 with a creatinine 1.13. DIAGNOSTIC DATA: EKG showed sinus rhythm, small Q-waves inferior, nonspecific ST changes. IMPRESSION: Again, this is an 82-year-old female who presented with non-STEMI with multiple comorbidities. The cardiac valves have been evaluated by Dr. Nadja Magdaleno and she has no targets to sew into; has significant risk factors including her cerebral vascular accident, significant COPD. RECOMMENDATIONS Recommendations at this time is maximizing medication and medical therapy. No surgical intervention at this time. Dictated by NORMA Bonilla Patient seen and examined, chart and angiograms reviewed on 01/31/2018 and the findings discussed in detail with the patient. Given her significant medical comorbidities, severe underlying cardiopulmonary disease and lack of distal targets, I do not feel that she will benefit from surgical intervention. Furthermore, at this point she is interested in medical management and not in surgical therapy. Agree with palliative care/hospice evaluation. We will standby for now. Thank you for allowing me to participate in the care of this patient. MD CHAN Elder/corky , 02:52 PM , 03:00 PM TONY
--- NOTE | 2018-01-31 18:31 | P.PNIM ---
Subjective Interval history: Patient underwent heart catheterization today which shows extensive disease, beyond the point that can be stented. Cardiovascular surgery was consulted, she is not a candidate due to poor targets for bypass. Physical Exam Vital signs: Vital Signs 01/30/18 20:00 01/30/18 20:19 01/30/18 23:45 Temperature 97.4 F L Pulse Rate 110 H 97 H 87 Respiratory Rate 16 18 17 Blood Pressure 148/82 H Pulse Oximetry 95 96 01/31/18 00:00 01/31/18 03:31 01/31/18 04:00 Temperature 97.7 F 97.4 F L Pulse Rate 85 80 93 H Respiratory Rate 18 16 16 Blood Pressure 139/77 131/91 H Pulse Oximetry 100 97 01/31/18 08:00 01/31/18 08:23 01/31/18 10:02 Temperature 97.6 F Pulse Rate 99 H 92 H Respiratory Rate 22 18 Blood Pressure 120/82 Pulse Oximetry 99 97 96 01/31/18 14:47 01/31/18 15:18 01/31/18 17:41 Temperature 97.7 F 97.4 F L Pulse Rate 91 H 92 H 93 H Respiratory Rate 24 16 23 Blood Pressure 139/71 133/68 Pulse Oximetry 94 L 98 Intake & Output 01/30/18 01/31/18 01/31/18 18:59 06:59 18:59 Intake Total 708 / 708 480 / 480 Output Total 550 / 550 600 / 600 Balance 708 / 708 -550 / -550 -120 / -120 Weight 64.8 kg Intake: Oral 708 / 708 480 / 480 Output: Urine 550 / 550 600 / 600 Other: # Voids 4 Date of Last Bowel Movement 01/31/18 # Bowel Movements 1 1 Narrative: GENERAL: AAOx3, anxious following heart cath SKIN: Warm and dry. No rashes HEAD: Atruamtic, normocephalic. EYES: No scleral icterus. No injection or drainage. ENT: Moist mucous membranes, patent nares, no erythema of oropharynx. NECK: Supple, trachea midline. No JVD or lymphadenopathy. Normal thyroid. CARDIOVASCULAR: Regular rate and rhythm. No murmurs, gallops, or rubs. RESPIRATORY: Breath sounds clear equal bilaterally. No crackles or wheezes. No accessory muscle use. GASTROINTESTINAL: Abdomen soft, non-tender, nondistended, normal active bowel sounds MUSCULOSKELETAL: No cyanosis, or edema. NEURO: CN II-XII grossly intact, no focal deficits, no slurring of speech Results - Labs CBC & Chem 7: 01/28/18 06:23 01/31/18 06:30 Laboratory Results - last 24 hr 01/31/18 06:30 Sodium 130 L Potassium 4.8 Chloride 93 L Carbon Dioxide 27.9 Anion Gap 9 BUN 43 H Creatinine 1.13 H Estimated GFR 46 L Random Glucose 202 H Calcium 8.8 - Imaging Impressions Chest X-Ray 01/31/18 00:00 CONCLUSION: Slight improvement in aeration. Persistent small effusions Assessment and Plan - Plan Acute chest pain High risk due to history of NH, currently with elevated troponin level Patient has a history of stent placement in [place], cannot recall which year She has a history of poor circulation in her legs, history of endarterectomy in 2009 Cardiac catheterization revealed extensive coronary artery disease, distally, unable to be stented Cardiovascular surgery explained that she has poor targets, bypass surgery would be a poor choice for her Appreciate cardiology consult Appreciate cardiovascular surgery consult Advanced coronary artery disease Patient is unable to be stented and unable to be bypassed Cardiology recommends medical management and possible hospice I referred patient to [facility] study with dietary change involving vegan high fiber diet She seems glad to have some control over her valerie and seems motivated to adhere to the diet Cough, COPD exacerbation She has been battling bronchitis for the last 2-3 weeks, completed Z-Art 1 week ago Lungs remain clear again after receiving single dose of Lasix Continue with duo nebs and Solu-Medrol Continue budesonide nebs Anxiety This is an exacerbating factor regarding her breathing and her chest pain Continue Valium as baseline and Xanax for breakthrough, affect slightly improved today CODE STATUS changed status to full code again DVT Prophylaxis Heparin Discharge planning Likely discharge tomorrow
[2018-01-31] MEDS: Sertraline 50 MG Tablet PO SCH (20:05)
[2018-01-31] MEDS: Melatonin 5 MG Tablet PO PRN (22:15)
[2018-02-01] MEDS: MethylPREDNISolone Sod Succinate Inj 125 MG/2 ML Vial IV.PUSH SCH ×3 (02:19→14:14)
[2018-02-01 06:58] LABS: Calcium 8.8 mg/dL (8.5-10.1); Carbon Dioxide 30.6 meq/L (21.0-32.0); Potassium 4.9 meq/L (3.5-5.1)
[2018-02-01 07:08] LABS: Baso % (Auto) 0.1 % (0.0-2.0); Hematocrit 32.5 % (35.0-46.0); Hemoglobin 11.1 gm/dL (11.6-15.3); Lymph # (Auto) 0.7 th/mm3 (1.0-4.8); Lymph % (Auto) 6.4 % (9.0-44.0); Mean Corpuscular HGB Conc 34.2 % (32.0-36.0); Mean Corpuscular Volume 93.6 fL (80.0-100.0); Mean Platelet Volume 9.5 fL (7.0-11.0); Mono # (Auto) 0.3 th/mm3 (0.0-0.9); Mono % (Auto) 3.3 % (0.0-8.0); Neut # (Auto) 9.4 th/mm3 (1.8-7.7); Neut % (Auto) 90.2 % (16.0-70.0); Platelet Count 228 th/mm3 (150-450); Red Blood Count 3.48 mil/mm3 (4.00-5.30); Red Cell Distribution Width 13.7 % (11.6-17.2); White Blood Count 10.4 th/mm3 (4.0-11.0)
[2018-02-01] MEDS: Metoprolol Tartrate 25 MG Tablet PO SCH (08:35)
[2018-02-01] MEDS: Famotidine 20 MG Tablet PO SCH (08:36)
[2018-02-01] MEDS: diazePAM 5 MG Tablet PO SCH (08:37)
[2018-02-01] MEDS: Sodium Chloride 0.9% 2 ML Flush BID IV.FLUSH SCH (08:39)
[2018-02-01] MEDS ORDERED: Lisinopril 5 MG Tablet PO SCH (09:15)
--- NOTE | 2018-02-01 09:17 | P.PNCA ---
Subjective Interval history: No chest pain Medications and Allergies Active Medications: Active Medications Acetaminophen (Tylenol) 650 mg PO Q4H PRN PRN Reason: Temp > 100.4 Hydrocodone Bitart/Acetaminophen ([place] 5/325) 1 tab PO Q6H PRN PRN Reason: PAIN 1-10 Last Admin: 02/01/18 08:36 Dose: 1 tab Albuterol (Duoneb Neb (Prn)) 1 ampul NEB Q2HR NEB PRN PRN Reason: sob/wheezing Last Admin: 01/31/18 21:06 Dose: 1 ampul Alprazolam (Xanax) 0.25 mg PO Q8H PRN PRN Reason: Breakthrough Anxiety Last Admin: 01/29/18 05:14 Dose: 0.25 mg Aspirin (Aspirin Chew) 81 mg PO DAILY [facility] Last Admin: 02/01/18 08:35 Dose: 81 mg Atorvastatin Calcium (Lipitor) 40 mg PO DAILY [facility] Last Admin: 02/01/18 08:34 Dose: 40 mg Benzocaine/Menthol (Chloraseptic Sore Throat Lozenge) 1 lozenge BUCCAL Q4H PRN PRN Reason: SORE THROAT Last Admin: 01/31/18 20:21 Dose: 1 lozenge Budesonide (Pulmocort Respule Neb) 0.5 mg NEB Q12HR NEB [facility] Last Admin: 01/31/18 21:06 Dose: 0.5 mg Clopidogrel Bisulfate (Plavix) 75 mg PO DAILY [facility] Last Admin: 02/01/18 08:35 Dose: 75 mg Diazepam (Valium) 5 mg PO Q12HR [facility] Last Admin: 02/01/18 08:37 Dose: 5 mg Diphenhydramine HCl (Benadryl) 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 PO 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 [facility] Stop: 02/04/18 08:14 Famotidine (Pepcid) 20 mg PO BID [facility] Last Admin: 02/01/18 08:36 Dose: 20 mg Heparin Sodium (Porcine) (Heparin Inj) 5,000 units SQ Q8H [facility] Last Admin: 01/31/18 12:27 Dose: Not Given Lactated Ringer's (Lr 1000 Ml Inj) 1,000 mls @ 30 mls/hr IV.SIG .Q24H [facility] Stop: 02/01/18 12:14 Levothyroxine Sodium (Synthroid) 25 mcg PO DAILY@0600 [facility] Last Admin: 02/01/18 05:54 Dose: 25 mcg Melatonin (Melatonin) 10 mg PO HS PRN PRN Reason: INSOMNIA Last Admin: 01/31/18 22:15 Dose: 10 mg Methylprednisolone Sodium Succinate (Solumedrol Inj) 60 mg IV.PUSH Q6H [facility] Last Admin: 02/01/18 08:34 Dose: 60 mg Metoprolol Tartrate (Lopressor) 25 mg PO BID [facility] Last Admin: 02/01/18 08:35 Dose: 25 mg Nitroglycerin (Nitrostat Sl) 0.4 mg SL Q5M PRN PRN Reason: CHEST PAIN Nitroglycerin (Nitro-Bid 2% Oint) 1 inch TOPICAL Q6HR [facility] Last Admin: 02/01/18 05:54 Dose: 1 inch Ondansetron HCl (Zofran Inj) 4 mg IV.PUSH Q6H PRN PRN Reason: NAUSEA OR VOMITING Sennosides (Senokot) 17.2 mg PO Q12H PRN PRN Reason: Moderate Constipation Last Admin: 01/30/18 09:15 Dose: 17.2 mg Sertraline HCl (Zoloft) 25 mg PO HS [facility] Last Admin: 01/31/18 20:05 Dose: 25 mg Sodium Chloride (Ns Flush) 2 ml IV.FLUSH UNSCH PRN PRN Reason: FLUSH AFTER USING IV ACCESS Last Admin: 01/30/18 00:18 Dose: 2 ml Sodium Chloride (Ns Flush) 2 ml IV.FLUSH BID [facility] Last Admin: 02/01/18 08:39 Dose: 2 ml Allergies Allergy/AdvReac Type Severity Reaction Status Date / Time No Known Allergies Allergy Verified 01/26/18 06:22 Home Medications Medication Instructions Recorded Confirmed Type aspirin [Aspir-Low] 81 mg PO 01/26/18 History carvedilol 25 mg PO BID 01/26/18 01/26/18 History levothyroxine 25 mcg PO DAILY 01/26/18 01/26/18 History losartan 25 mg PO DAILY 01/26/18 01/26/18 History sertraline [Zoloft] 25 mg PO HS 01/26/18 01/26/18 History tolterodine 1 mg PO HS 01/26/18 01/26/18 History Physical Exam Vital signs: Vital Signs 01/31/18 10:02 01/31/18 14:47 01/31/18 15:18 Temperature 97.7 F Pulse Rate 91 H 92 H Respiratory Rate 24 16 Blood Pressure 139/71 Pulse Oximetry 96 94 L 01/31/18 16:00 01/31/18 17:41 01/31/18 20:00 Temperature 97.4 F L 97.7 F Pulse Rate 95 H 93 H 98 H Respiratory Rate 23 17 Blood Pressure 133/68 158/88 H Pulse Oximetry 98 97 01/31/18 20:36 01/31/18 21:06 02/01/18 00:00 Temperature 97.2 F L Pulse Rate 92 H 90 Respiratory Rate 20 18 17 Blood Pressure 135/76 Pulse Oximetry 98 98 02/01/18 04:00 02/01/18 08:00 Temperature 97.8 F 97.8 F Pulse Rate 80 66 Respiratory Rate 17 20 Blood Pressure 145/80 H 168/98 H Pulse Oximetry 98 100 Intake & Output 01/31/18 02/01/18 02/01/18 18:59 06:59 18:59 Intake Total 480 / 480 360 / 360 Output Total 600 / 600 1200 / 1200 Balance -120 / -120 -840 / -840 Weight 66.3 kg Intake: Oral 480 / 480 360 / 360 Output: Urine 600 / 600 1200 / 1200 Other: Date of Last Bowel Movement 01/31/18 # Bowel Movements 1 0 Narrative: Alert, NAD No JVD Chest clear CV S1S2 RRR with 1-2/6 DUSTIN Abd soft Right wrist OK no edema Results 02/01/18 04:00 02/01/18 04:00 CBC 02/01/18 Range/Units 04:00 WBC 10.4 (4.0-11.0) th/mm3 RBC 3.48 L (4.00-5.30) mil/mm3 Hgb 11.1 L (11.6-15.3) gm/dL Hct 32.5 L (35.0-46.0) % Plt Count 228 (150-450) th/mm3 Neut # (Auto) 9.4 H (1.8-7.7) th/mm3 Lymph # (Auto) 0.7 L (1.0-4.8) th/mm3 [place] # (Auto) 0.3 (0.0-0.9) th/mm3 Eos # (Auto) 0.0 (0.0-0.4) th/mm3 Baso # (Auto) 0.0 (0.0-0.2) th/mm3 Comprehensive Metabolic Panel 01/31/18 02/01/18 Range/Units 06:30 04:00 Sodium 130 L 131 L (136-145) meq/L Potassium 4.8 4.9 (3.5-5.1) meq/L Chloride 93 L 92 L (98-107) meq/L Carbon Dioxide 27.9 30.6 (21.0-32.0) meq/L BUN 43 H 36 H (7-18) mg/dL Creatinine 1.13 H 0.97 (0.50-1.00) mg/dL Calcium 8.8 8.8 (8.5-10.1) mg/dL Intake and Output 01/31/18 02/01/18 02/01/18 22:59 06:59 14:59 Intake Total 480 / 480 360 / 360 Output Total 600 / 600 1200 / 1200 Balance -120 / -120 -840 / -840 Intake: Oral 480 / 480 360 / 360 Output: Urine 600 / 600 1200 / 1200 Other: Date of Last Bowel Movement 01/31/18 # Bowel Movements 1 0 Weight 66.3 kg - Imaging and Cardiology Imaging: Impressions Chest X-Ray 01/31/18 00:00 CONCLUSION: Slight improvement in aeration. Persistent small effusions Assessment and Plan - Assessment (1) Frail elderly Code(s): R54 - Age-related physical debility Status: Acute Plan: She asked to be DNR. No cardiac cath (2) COPD (chronic obstructive pulmonary disease) Code(s): J44.9 - Chronic obstructive pulmonary disease, unspecified Status: Acute Plan: Last night severe CO2 retention. Heavy smoker in the past (3) PAD (peripheral artery disease) Code(s): I73.9 - Peripheral vascular disease, unspecified Status: Acute (4) Acute CHF (congestive heart failure) Code(s): I50.9 - Heart failure, unspecified Status: Acute Plan: Currently compensated (5) Acute non-ST elevation myocardial infarction (NSTEMI) Code(s): I21.4 - Non-ST elevation (NSTEMI) myocardial infarction Status: Acute Plan: Cont ASA/clopidogrel/BB/nitrates/statin. (6) Ischemic cardiomyopathy Code(s): I25.5 - Ischemic cardiomyopathy Status: Acute - Plan Patient has extremely severe CAD and poor LV function and does not have anatomy suitable for PCI or CABG. I communicated this to her in detail. I don't think she will survive very long/ prognosis is poor. Meds optimized. I am signing off. Please call if questions.
[2018-02-01] MEDS ORDERED: Isosorbide Mononitrate 60 MG ER 24HR Tablet (Imdur) PO SCH (09:30)
--- NOTE | 2018-02-01 13:48 | P.DS ---
Date of admission: 01/26/18 09:49 Primary care physician: UNKNOWN Brief History from admission: 82-year-old female with a history of coronary artery disease, peripheral vascular disease, ND, presents to the ER after being awoken for second night with central substernal chest pain. She reports that the pain was made worse with deep inspiration but was unable to be relieved. She states she has had a cough for the past 2-3 weeks associated with a sore throat. Of concern she has a history of myocardial infarction with stents placed on an uncertain date in [place]. Following her first episode of chest pain 2 nights ago she telephoned [employer] call nurse but did not receive a call back. After it happened again she was uncertain about the source and came straight to her [facility] emergency room. As mentioned above she has been battling a cough for the last 2-3 weeks, productive of scant clear to yellowish sputum, was treated a week ago with a 5- day Z-Art which offered temporary resolution, but the symptoms have returned. Her chest pain is induced and made worse by deep inspiration which is caused her to breathe shallow. She denies any nausea vomiting or diarrhea. She denies dysuria, fevers, urine Oder changes. DS: Medications - Discharge Medications Prescriptions: alprazolam [Xanax] 0.25 mg PO Q8H PRN #60 tab PRN Reason: Breakthrough Anxiety aspirin [Aspir-Low] 81 mg PO DAILY #30 tab carvedilol 25 mg PO BID 30 Days #60 tab clopidogrel [Plavix] 75 mg PO DAILY #30 tab diazepam [Valium] 5 mg PO Q12HR #60 tab furosemide 20 mg PO DAILY #30 tab hydrocodone-acetaminophen 1 tab PO Q6H PRN #12 tab PRN Reason: Acute Pain ipratropium-albuterol 1 amp NEB Q2HR NEB PRN #100 ml PRN Reason: sob/wheezing isosorbide mononitrate 60 mg PO DAILY@0700 #30 tab levothyroxine 25 mcg PO DAILY #30 tab losartan 25 mg PO DAILY #30 tab melatonin 10 mg PO HS PRN #30 tab PRN Reason: Insomnia methylprednisolone [Medrol (Art)] 1 tab PO PER PKG DIR #1 each nitroglycerin [Nitrostat] 0.4 mg SUBLINGUAL Q5M PRN #90 tab PRN Reason: Chest Pain sertraline [Zoloft] 25 mg PO HS #30 tab tolterodine 1 mg PO HS #30 tab DS: Summary Hospital Course: 82-year-old female with history of COPD, hypertension, coronary artery disease, anxiety presented to the ER with chest pain and shortness of breath. She had elevated troponins and EKG changes that were consistent with ND. Initially she refused a cardiac catheterization, 3 days later she changed her mind and wanted to undergo cardiac catheterization. Cardiac catheterization was performed on , it revealed extensive coronary artery disease with distal extension that was beyond the ability for stenting to repair. Cardiothoracic surgery was consulted and explained that there are no distal targets for bypass to reattach to that would restore adequate flow in the lesions of her type. Cardiology suggested that hospice be considered since there was no further medical treatment that could be offered. Patient and family are looking for a hopeful situation and I explained to them that some studies have been done observing vegan diet and reversal of coronary artery plaques. Most notably at [facility]. She is the type of person who would do well to focus her energy on a solution rather than exacerbate her anxiety I have the feeling of loss of control. Her prognosis is very poor in both she and her family understand this , but they are grateful to have the hope of positive change and the patient herself is very motivated to adhere to a vegan diet, she has already begun that while in the hospital in the last day. She has a bed qualified for her at [facility]. My recommendation is for her not to participate in rehab until approximately 1-2 months from now, she needs rest and should not exert herself due to life-threatening coronary artery disease. - Time Spent with Patient Total time spent providing and/or coordinating discharge services: Less than 30 minutes - Quality: VTE Deep Vein Thrombosis/Pulmonary Embolism Present on Admission: No Exam Vital signs: Vital Signs 01/31/18 14:47 01/31/18 15:18 01/31/18 16:00 Temperature 97.7 F Pulse Rate 91 H 92 H 95 H Respiratory Rate 24 16 Blood Pressure 139/71 Pulse Oximetry 94 L 01/31/18 17:41 01/31/18 20:00 01/31/18 20:36 Temperature 97.4 F L 97.7 F Pulse Rate 93 H 98 H Respiratory Rate 23 17 20 Blood Pressure 133/68 158/88 H Pulse Oximetry 98 97 01/31/18 21:06 02/01/18 00:00 02/01/18 04:00 Temperature 97.2 F L 97.8 F Pulse Rate 92 H 90 80 Respiratory Rate 18 17 17 Blood Pressure 135/76 145/80 H Pulse Oximetry 98 98 98 02/01/18 07:00 02/01/18 08:00 02/01/18 09:23 Temperature 97.8 F Pulse Rate 89 93 H Respiratory Rate 18 20 Blood Pressure 168/98 H Pulse Oximetry 100 99 02/01/18 12:00 02/01/18 13:12 Temperature 98 F Pulse Rate 87 72 Respiratory Rate 20 Blood Pressure 112/55 L Pulse Oximetry 98 Intake & Output 01/31/18 02/01/18 02/01/18 18:59 06:59 18:59 Intake Total 480 / 480 360 / 360 Output Total 600 / 600 1200 / 1200 Balance -120 / -120 -840 / -840 Weight 66.3 kg Intake: Oral 480 / 480 360 / 360 Output: Urine 600 / 600 1200 / 1200 Other: Date of Last Bowel Movement 01/31/18 # Bowel Movements 1 0 Results Procedures completed during hospitalization: Cardiac catheterization 01/31/2018 Labs on day of discharge: Labs from last 24 hours 02/01/18 02/01/18 04:00 04:00 WBC 10.4 RBC 3.48 L Hgb 11.1 L Hct 32.5 L MCV 93.6 MCH 32.0 MCHC 34.2 RDW 13.7 Plt Count 228 MPV 9.5 Neut % (Auto) 90.2 H Lymph % (Auto) 6.4 L [place] % (Auto) 3.3 Eos % (Auto) 0.0 Baso % (Auto) 0.1 Neut # (Auto) 9.4 H Lymph # (Auto) 0.7 L [place] # (Auto) 0.3 Eos # (Auto) 0.0 Baso # (Auto) 0.0 WBC Differential . Differential Comment Auto diff final Sodium 131 L Potassium 4.9 Chloride 92 L Carbon Dioxide 30.6 Anion Gap 8 BUN 36 H Creatinine 0.97 Estimated GFR 55 L Random Glucose 193 H Calcium 8.8 - Impressions ITS Impressions Chest CTA 01/26/18 06:24 CONCLUSION: 1. No evidence of pulmonary embolism. Minimal atelectasis both lung bases. Chest X-Ray 01/31/18 00:00 CONCLUSION: Slight improvement in aeration. Persistent small effusions Discharge Plan - Discharge Disposition Patient Disposition: 03 Discharge to SNF - Discharge Condition Condition: Stable - Discharge Order Discharge Orders: Discharge Order (Routine); Ordered 02/01/18 Ordered By: Venkat Dennison - Discharge Details Anticipated Discharge Date: 02/01/18 - Physicians Team Primary Care Provider: UNKNOWN, Attending Provider: Venkat Dennison Other Providers: Lisbet Genao MD ; [employer] ; [facility] ; Janet Shanks MD ; Sebastián Aguila MD
[2018-02-02] MEDS ORDERED: Furosemide 20 MG Tablet PO SCH (09:00)
== END 2018-02-01 16:59 ==
LOC: NEPE 06:16 → NEDA 09:49 → N04 14:53
PROVIDERS: ADMIT Family Medicine; ATTEND Family Medicine

== ENCOUNTER 2018-02-20 23:17 | Inpatient (IN) ==
[2018-02-20 23:59] LABS: Baso % (Auto) 0.3 % (0.0-2.0); Eos # (Auto) 0.2 th/mm3 (0.0-0.4); Eos % (Auto) 1.9 % (0.0-4.0); Hematocrit 31.1 % (35.0-46.0); Hemoglobin 10.4 gm/dL (11.6-15.3); Lymph # (Auto) 1.4 th/mm3 (1.0-4.8); Lymph % (Auto) 17.9 % (9.0-44.0); Mean Corpuscular HGB Conc 33.3 % (32.0-36.0); Mean Corpuscular Hemoglobin 32.1 pg (27.0-34.0); Mean Corpuscular Volume 96.1 fL (80.0-100.0); Mean Platelet Volume 8.6 fL (7.0-11.0); Mono # (Auto) 0.3 th/mm3 (0.0-0.9); Mono % (Auto) 3.4 % (0.0-8.0); Neut # (Auto) 6.2 th/mm3 (1.8-7.7); Neut % (Auto) 76.5 % (16.0-70.0); Platelet Count 256 th/mm3 (150-450); Red Blood Count 3.23 mil/mm3 (4.00-5.30); Red Cell Distribution Width 13.4 % (11.6-17.2); White Blood Count 8.1 th/mm3 (4.0-11.0)
[2018-02-21 00:11] LABS: Activated Partial Thrombo Time 25.2 sec (23.4-31.7)
[2018-02-21 00:17] LABS: Alanine Aminotransferase 25 U/L (10-53); Anion Gap 7 meq/L (5-15); Aspartate Aminotransferase 20 U/L (15-37); Blood Urea Nitrogen 9 mg/dL (7-18); Calcium 9.3 mg/dL (8.5-10.1); Carbon Dioxide 31.9 meq/L (21.0-32.0); Chloride 96 meq/L (98-107); Glomerular Filtration Rate 65 mL/min (>89); Glucose,Random 234 mg/dL (74-106); Magnesium 1.8 mg/dL (1.5-2.5); Sodium 135 meq/L (136-145)
[2018-02-21 00:21] LABS: Alkaline Phosphatase 122 U/L (45-117); Total Protein 6.7 g/dL (6.4-8.2); Troponin I 0.24 ng/mL (0.02-0.05)
[2018-02-21 00:24] LABS: Creatine Kinase 47 U/L (26-192)
--- NOTE | 2018-02-21 00:25 | ED ---
HPI General Chief Complaint: Respiratory Symptoms Stated Complaint: Respitory Time Seen by Provider: 02/20/18 23:28 Source: patient, EMS and old records reviewed Mode of arrival: EMS Limitations: other (clincial condition) History of Present Illness The patient is an 82-year-old female that was brought in from a rehab facility for evaluation due to shortness of breath and hypoxia. She was recently discharged from our facility where she was admitted for an an STEMI. Has history of coronary artery disease peripheral vascular disease and a recent MS. I spoke to her daughter who is a nurse in [place] and she stated that she has been having low blood pressure at the rehab center since they have been adjusting her blood pressure medications and she had some small pleural effusions she was given Lasix but it was several days ago and then her potassium was low so that was replaced. She has not been getting any breathing treatments and she was off oxygen because supposedly she was doing great. She does have history of COPD. Patient arrived from [facility] were they called at 10 PM for shortness of breath. She had received 2 DuoNeb's at that facility without any relief and was using accessory muscle. En route she was given another breathing treatment by paramedics and Solu-Medrol 125 mg IV. Complaint: Reports shortness of breath; Denies cough Onset (ago): hour(s) (2) Context: Reports recent illness Severity: similar to previous episodes Consistency/Duration: constant Relieving factors: oxygen, rest, bronchodilators and upright position Exacerbating factors: lying flat and exertion Known history of: Reports COPD, congestive heart failure and other (recent NSTEMI) Associated symptoms: Reports cough, wheezing, sputum production and palpitations ; Denies chest pain, pain with inspiration, fever and lower extremity pain Treatment prior to arrival: Reports oxygen, bronchodilator and other ( Solumedrol 125mg IVP) Related Data Home oxygen amount: none (but not at the rehab facility) Home Medications Medication Instructions Recorded Confirmed acetaminophen 500 mg PO Q4-6H PRN 02/20/18 02/20/18 amino acids-protein hydrolys 1 packet PO DAILY 02/20/18 02/20/18 [Pro-Stat Sugar Free] carvedilol 12.5 mg PO BID 02/20/18 02/20/18 diazepam [Valium] 5 mg PO HS PRN 02/20/18 02/20/18 ferrous sulfate 325 mg PO DAILY 02/20/18 02/20/18 hydrocodone-acetaminophen 1 tab PO Q12H PRN 02/20/18 02/20/18 melatonin 9 mg PO HS PRN 02/20/18 02/20/18 potassium chloride 10 meq PO DAILY 02/20/18 02/20/18 ranitidine HCl 75 mg PO BID 02/20/18 02/20/18 sodium chloride 1,000 mg PO BID 02/20/18 02/20/18 Previous Rx's Medication Instructions Recorded alprazolam [Xanax] 0.25 mg PO Q8H PRN #60 tab 02/01/18 aspirin [Aspir-Low] 81 mg PO DAILY #30 tab 02/01/18 clopidogrel [Plavix] 75 mg PO DAILY #30 tab 02/01/18 furosemide 20 mg PO DAILY #30 tab 02/01/18 ipratropium-albuterol 1 amp NEB Q2HR NEB PRN #100 ml 02/01/18 isosorbide mononitrate 60 mg PO DAILY@0700 #30 tab 02/01/18 levothyroxine 25 mcg PO DAILY #30 tab 02/01/18 losartan 25 mg PO DAILY #30 tab 02/01/18 nitroglycerin [Nitrostat] 0.4 mg SUBLINGUAL Q5M PRN #90 tab 02/01/18 sertraline [Zoloft] 25 mg PO HS #30 tab 02/01/18 tolterodine 1 mg PO HS #30 tab 02/01/18 Allergies Allergy/AdvReac Type Severity Reaction Status Date / Time No Known Allergies Allergy Verified 02/20/18 23:19 Review of Systems ROS: all other systems reviewed are negative [facility] Medical History Medical History CAD (coronary artery disease) (Acute) COPD (chronic obstructive pulmonary disease) (Acute) High cholesterol (Acute) Hypertension (Acute) PVD (peripheral vascular disease) (Acute) Stroke (Acute) Surgical History Surgical History H/O endarterectomy (Acute) Status post laser cataract surgery of both eyes (Acute) Family History Family History Brother Myocardial infarct Sister Myocardial infarct Other Hypertension Social History Social History Substance History: No History of Abuse Second Hand Smoke Exposure: No Smoking Status: Never smoker Tobacco Type: Cigarettes How Often Do You Have a Drink Containing Alcohol: Never Hx Recent Travel: No Recent Travel in [facility] within the Last 8 Weeks: No Recent Out of Country Travel within the Last 8 Weeks: No Immunization History Tetanus Immunization: <5 Years Exam Narrative Exam Narrative: GENERAL: Alert and oriented in moderate respiratory distress SKIN: Focused skin assessment warm/dry. Poor turgor HEAD: Atraumatic. Normocephalic. EYES: Pupils equal and round. No scleral icterus. No injection or drainage. ENT: No nasal bleeding or discharge. Mucous membranes pink and moist. NECK: Trachea midline. No JVD. CARDIOVASCULAR: Tachycardia with regular rhythm. No murmur appreciated. RESPIRATORY: Tachypnea accessory muscle use. Bilateral end expiratory wheezing. breath sounds equal bilaterally. GASTROINTESTINAL: Abdomen soft, non-tender, nondistended. Hepatic and splenic margins not palpable. MUSCULOSKELETAL: No obvious deformities. No clubbing. No cyanosis. No edema. NEUROLOGICAL: Awake and alert. No obvious cranial nerve deficits. Motor grossly within normal limits. Normal speech. PSYCHIATRIC: Appropriate mood and affect; insight and judgment normal. Course Reevaluation(s) Reevaluation #1: She states she feels much better since we placed the BiPAP and started on breathing treatment Time: 00:26 Reevaluation #2: Informed by nurse that her patient the patient has been having O2 saturations in the upper 80s. We increased inspiratory pressure on the BiPAP from 10-15 and appears that the patient is tolerating well the patient's O2 saturation increased to 95%. Time: 01:49 Initial Documented Vital Signs Temperature 97.9 F 02/20/18 23:20 Pulse Rate 123 H 02/20/18 23:20 Respiratory Rate 27 H 02/20/18 23:20 Blood Pressure 137/86 02/20/18 23:20 Pulse Oximetry 94 L 02/20/18 23:20 Last Documented Vital Signs Temperature 97.9 F 02/20/18 23:20 Pulse Rate 84 02/21/18 05:00 Respiratory Rate 21 02/21/18 05:00 Blood Pressure 136/77 02/21/18 05:00 Pulse Oximetry 95 02/21/18 05:00 Critical Care Time Critical Care Time: Yes Total Critical Care Time: 45 Attestation: Aggregate critical care time was 45 minutes. Time to perform other separately billable procedures was not included in the critical care time. My time did not include minutes spent treating any other patients simultaneously or on activities that did not directly contribute to the patient's treatment. The services I provided to this patient were to treat and/or prevent clinically significant deterioration that could result in: I provided critical care services requiring my management, as noted below: Chart data review, documentation time, medication orders and management, vital sign assessments/reviewing monitor data, ordering and reviewing lab tests, ordering and interpreting/reviewing x-rays and diagnostic studies, care of the patient and discussion of the patient with the admitting physicians. Medical Decision Making MDM Narrative Medical decision making narrative: Apnea hypoxemia that improved with appropriate BiPAP adjustments. No signs of infectious process. Her BNP is elevated suggestive of CHF was confirmed on chest x-ray. She was diuresed with Lasix is hemodynamically stable. EKG not suggestive of acute ischemia. Patient does not want to be intubated Her troponin is elevated but is trending down from recent end STEMI. Placed on BiPAP and seems to be improving alert and oriented. Spoke with er daughter in [facility] who is a nurse and provided me with her HPI for the past few days. Albuterol was given steroids were also given by EMS. Medical Screen Exam Complete: Yes Emergency Medical Condition: Yes Lab Data Result diagrams: 02/20/18 23:43 02/20/18 23:43 Lab Results 02/20/18 02/20/18 02/20/18 Range/Units 23:43 23:43 23:43 WBC 8.1 (4.0-11.0) th/mm3 RBC 3.23 L (4.00-5.30) mil/mm3 Hgb 10.4 L (11.6-15.3) gm/dL Hct 31.1 L (35.0-46.0) % MCV 96.1 (80.0-100.0) fL MCH 32.1 (27.0-34.0) pg MCHC 33.3 (32.0-36.0) % RDW 13.4 (11.6-17.2) % Plt Count 256 (150-450) th/mm3 MPV 8.6 (7.0-11.0) fL Neut % (Auto) 76.5 H (16.0-70.0) % Lymph % (Auto) 17.9 (9.0-44.0) % Webster % (Auto) 3.4 (0.0-8.0) % Eos % (Auto) 1.9 (0.0-4.0) % Baso % (Auto) 0.3 (0.0-2.0) % Neut # (Auto) 6.2 (1.8-7.7) th/mm3 Lymph # (Auto) 1.4 (1.0-4.8) th/mm3 Webster # (Auto) 0.3 (0.0-0.9) th/mm3 Eos # (Auto) 0.2 (0.0-0.4) th/mm3 Baso # (Auto) 0.0 (0.0-0.2) th/mm3 WBC Differential . Differential Comment Auto diff final PT 10.0 (9.8-11.6) sec INR 1.0 Ratio APTT 25.2 (23.4-31.7) sec Puncture Site Patient Temperature O2 Saturation (90-100) % ABG pH (7.380-7.420) ABG pCO2 (38-42) mmHg ABG pO2 (61-120) mmHg ABG HCO3 (22-26) mmol/L ABG O2 Content (12.0-20.0) Vol % ABG Base Excess (-2-2) mmol/L ABG Methemoglobin (0-2) % Arnie Test Hemoglobin (12.0-16.0) G/DL Carboxyhemoglobin (0-4) % O2 Delivery Device Vent Setting Inspired O2 % Critical Value Sodium 135 L (136-145) meq/L Potassium 4.0 (3.5-5.1) meq/L Chloride 96 L (98-107) meq/L Carbon Dioxide 31.9 (21.0-32.0) meq/L Anion Gap 7 (5-15) meq/L BUN 9 (7-18) mg/dL Creatinine 0.84 (0.50-1.00) mg/dL Estimated GFR 65 L (>89) mL/min Random Glucose 234 H (74-106) mg/dL Lactic Acid (0.4-2.0) mmol/L Calcium 9.3 (8.5-10.1) mg/dL Magnesium 1.8 (1.5-2.5) mg/dL Total Bilirubin 0.5 (0.2-1.0) mg/dL AST 20 (15-37) U/L ALT 25 (10-53) U/L Alkaline Phosphatase 122 H (45-117) U/L Total Creatine Kinase 47 (26-192) U/L Troponin I 0.24 H (0.02-0.05) ng/mL B-Natriuretic Peptide (0-100) pg/mL Total Protein 6.7 (6.4-8.2) g/dL Albumin 3.0 L (3.4-5.0) g/dL 02/20/18 02/20/18 02/21/18 Range/Units 23:43 23:44 00:30 WBC (4.0-11.0) th/mm3 RBC (4.00-5.30) mil/mm3 Hgb (11.6-15.3) gm/dL Hct (35.0-46.0) % MCV (80.0-100.0) fL MCH (27.0-34.0) pg MCHC (32.0-36.0) % RDW (11.6-17.2) % Plt Count (150-450) th/mm3 MPV (7.0-11.0) fL Neut % (Auto) (16.0-70.0) % Lymph % (Auto) (9.0-44.0) % Webster % (Auto) (0.0-8.0) % Eos % (Auto) (0.0-4.0) % Baso % (Auto) (0.0-2.0) % Neut # (Auto) (1.8-7.7) th/mm3 Lymph # (Auto) (1.0-4.8) th/mm3 Webster # (Auto) (0.0-0.9) th/mm3 Eos # (Auto) (0.0-0.4) th/mm3 Baso # (Auto) (0.0-0.2) th/mm3 WBC Differential Differential Comment PT (9.8-11.6) sec INR Ratio APTT (23.4-31.7) sec Puncture Site Right radial Patient Temperature 98.6 O2 Saturation 86 L* (90-100) % ABG pH 7.45 H (7.380-7.420) ABG pCO2 48 H (38-42) mmHg ABG pO2 54 L* (61-120) mmHg ABG HCO3 33 H (22-26) mmol/L ABG O2 Content 12.5 (12.0-20.0) Vol % ABG Base Excess 8.2 H (-2-2) mmol/L ABG Methemoglobin 0.3 (0-2) % Arnie Test Present Hemoglobin 10.3 L (12.0-16.0) G/DL Carboxyhemoglobin 1.3 (0-4) % O2 Delivery Device Bipap Vent Setting [id number] Inspired O2 50 % Critical Value Yes Sodium (136-145) meq/L Potassium (3.5-5.1) meq/L Chloride (98-107) meq/L Carbon Dioxide (21.0-32.0) meq/L Anion Gap (5-15) meq/L BUN (7-18) mg/dL Creatinine (0.50-1.00) mg/dL Estimated GFR (>89) mL/min Random Glucose (74-106) mg/dL Lactic Acid 1.8 (0.4-2.0) mmol/L Calcium (8.5-10.1) mg/dL Magnesium (1.5-2.5) mg/dL Total Bilirubin (0.2-1.0) mg/dL AST (15-37) U/L ALT (10-53) U/L Alkaline Phosphatase (45-117) U/L Total Creatine Kinase (26-192) U/L Troponin I (0.02-0.05) ng/mL B-Natriuretic Peptide 1749 H (0-100) pg/mL Total Protein (6.4-8.2) g/dL Albumin (3.4-5.0) g/dL 02/21/18 Range/Units 02:47 WBC (4.0-11.0) th/mm3 RBC (4.00-5.30) mil/mm3 Hgb (11.6-15.3) gm/dL Hct (35.0-46.0) % MCV (80.0-100.0) fL MCH (27.0-34.0) pg MCHC (32.0-36.0) % RDW (11.6-17.2) % Plt Count (150-450) th/mm3 MPV (7.0-11.0) fL Neut % (Auto) (16.0-70.0) % Lymph % (Auto) (9.0-44.0) % Webster % (Auto) (0.0-8.0) % Eos % (Auto) (0.0-4.0) % Baso % (Auto) (0.0-2.0) % Neut # (Auto) (1.8-7.7) th/mm3 Lymph # (Auto) (1.0-4.8) th/mm3 Webster # (Auto) (0.0-0.9) th/mm3 Eos # (Auto) (0.0-0.4) th/mm3 Baso # (Auto) (0.0-0.2) th/mm3 WBC Differential Differential Comment PT (9.8-11.6) sec INR Ratio APTT (23.4-31.7) sec Puncture Site Right radial Patient Temperature 98.6 O2 Saturation 88 L* (90-100) % ABG pH 7.47 H (7.380-7.420) ABG pCO2 48 H (38-42) mmHg ABG pO2 57 L* (61-120) mmHg ABG HCO3 34 H (22-26) mmol/L ABG O2 Content 14.1 (12.0-20.0) Vol % ABG Base Excess 9.9 H (-2-2) mmol/L ABG Methemoglobin 0.3 (0-2) % Arnie Test Present Hemoglobin 11.4 L (12.0-16.0) G/DL Carboxyhemoglobin 1.4 (0-4) % O2 Delivery Device Bipap Vent Setting [id number]/epap5 Inspired O2 60 % Critical Value Yes Sodium (136-145) meq/L Potassium (3.5-5.1) meq/L Chloride (98-107) meq/L Carbon Dioxide (21.0-32.0) meq/L Anion Gap (5-15) meq/L BUN (7-18) mg/dL Creatinine (0.50-1.00) mg/dL Estimated GFR (>89) mL/min Random Glucose (74-106) mg/dL Lactic Acid (0.4-2.0) mmol/L Calcium (8.5-10.1) mg/dL Magnesium (1.5-2.5) mg/dL Total Bilirubin (0.2-1.0) mg/dL AST (15-37) U/L ALT (10-53) U/L Alkaline Phosphatase (45-117) U/L Total Creatine Kinase (26-192) U/L Troponin I (0.02-0.05) ng/mL B-Natriuretic Peptide (0-100) pg/mL Total Protein (6.4-8.2) g/dL Albumin (3.4-5.0) g/dL Imaging Data Radiologist's impression: Chest X-Ray 02/21/18 00:26 CONCLUSION: Cardiomegaly with mild interstitial edema pattern and small bilateral pleural effusions. Discharge Plan Discharge Disposition Patient Disposition: 30 Still Patient Discharge Condition Condition: Serious Discharge Details Diagnosis: Acute CHF (congestive heart failure), Respiratory failure with hypoxia and hypercapnia, Acute exacerbation of chronic obstructive pulmonary disease (COPD) Physicians Team ED Provider: Vladimir Whalen Primary Care Provider: UNKNOWN, Attending Provider: Ashley Lawson Rxs /Orders / Referrals /Forms Prescriptions: No Action ipratropium-albuterol 0.5 mg-3 mg(2.5 mg base)/3 mL Solution For Nebulization 1 amp NEB Q2HR NEB PRN (Reason: sob/wheezing) Qty: 100 RF: 0 clopidogrel [Plavix] 75 mg Tablet 75 mg PO DAILY Qty: 30 RF: 0 isosorbide mononitrate 60 mg Tablet Extended Release 24 Hr 60 mg PO DAILY@0700 Qty: 30 RF: 0 alprazolam [Xanax] 0.25 mg Tablet 0.25 mg PO Q8H PRN (Reason: Breakthrough Anxiety) Qty: 60 RF: 0 nitroglycerin [Nitrostat] 0.4 mg Tablet, Sublingual 0.4 mg Sublingual Q5M PRN (Reason: Chest Pain) Qty: 90 RF: 0 furosemide 20 mg Tablet 20 mg PO DAILY Qty: 30 RF: 0 tolterodine 1 mg Tablet 1 mg PO HS Qty: 30 RF: 0 aspirin [Aspir-Low] 81 mg Tablet,Delayed Release (Dr/Ec) 81 mg PO DAILY Qty: 30 RF: 0 levothyroxine 25 mcg Tablet 25 mcg PO DAILY Qty: 30 RF: 0 losartan 25 mg Tablet 25 mg PO DAILY Qty: 30 RF: 0 sertraline [Zoloft] 25 mg Tablet 25 mg PO HS Qty: 30 RF: 0 sodium chloride 1 gram Tablet 1,000 mg PO BID RF: 0 potassium chloride 10 mEq Tablet Extended Release 10 meq PO DAILY RF: 0 melatonin 3 mg Tablet 9 mg PO HS PRN (Reason: Insomnia) RF: 0 acetaminophen 500 mg Tablet 500 mg PO Q4-6H PRN (Reason: Pain) RF: 0 ranitidine HCl 75 mg Tablet 75 mg PO BID RF: 0 ferrous sulfate 325 mg (65 mg iron) Tablet 325 mg PO DAILY RF: 0 diazepam [Valium] 5 mg Tablet 5 mg PO HS PRN (Reason: Anxiety) RF: 0 amino acids-protein hydrolys [Pro-Stat Sugar Free] 15 gram- 100 kcal/30 mL Liquid In Packet 1 packet PO DAILY RF: 0 carvedilol 25 mg tablet 12.5 mg PO BID RF: 0 hydrocodone-acetaminophen 5-325 mg tablet 1 tab PO Q12H PRN (Reason: Acute Pain) RF: 0 Discharge Interventions Interventions: Vital Signs Last Done: 02/21/18 05:00 Status ED Status: Admitted Patient
--- NOTE | 2018-02-21 00:50 | XR ---
EXAM DATE: 02/21/2018 12:31 AM EST AGE/SEX: 82 years / Female INDICATIONS: Shortness of breath. CLINICAL DATA: This is the patient's initial encounter. Patient reports that signs and symptoms have been present for 1 day and indicates a pain score of 1/10. MEDICAL/SURGICAL HISTORY: Hypertension. Stroke. Chronic obstructive pulmonary disease. None. COMPARISON: [facility] – [place] 1V SINGLE AP, 01/31/2018. . FINDINGS: Heart size is mildly enlarged. Mild interstitial edema pattern with small effusions. No pneumothorax. No acute bony abnormality. CONCLUSION: Cardiomegaly with mild interstitial edema pattern and small bilateral pleural effusions. Electronically signed by: Enzo Navas MD 02/21/2018 12:49 AM EST
[2018-02-21 01:27] LABS: ABG Base Excess 8.2 mmol/L (-2-2); ABG PCO2 48 mmHg (38-42); ABG PO2 54 mmHg (61-120)
[2018-02-21 04:27] LABS: ABG Base Excess 9.9 mmol/L (-2-2); ABG PCO2 48 mmHg (38-42); ABG PO2 57 mmHg (61-120)
[2018-02-21] MEDS ORDERED: Bisacodyl 10 MG Supp RECTAL PRN (05:32)
[2018-02-21] MEDS ORDERED: Acetaminophen 325 MG Tablet PO PRN (05:32)
[2018-02-21 05:33] LABS: ABG Base Excess 10.8 mmol/L (-2-2); ABG PCO2 48 mmHg (38-42); ABG PO2 70 mmHg (61-120)
[2018-02-21 06:52] LABS: Troponin I 0.55 ng/mL (0.02-0.05)
[2018-02-21] MEDS: Senna/Docusate Sodium 8.6/50 MG Tablet PO SCH ×2 (09:47→20:56)
[2018-02-21] MEDS: Isosorbide Mononitrate 60 MG ER 24HR Tablet (Imdur) PO SCH (09:47)
[2018-02-21] MEDS: Carvedilol 12.5 MG Tablet PO SCH ×2 (09:48→20:57)
[2018-02-21 13:32] LABS: Troponin I 1.17 ng/mL (0.02-0.05)
[2018-02-21] MEDS ORDERED: Heparin Drip 25,000 UNIT/250 ML BAG IV.CONT PRN (14:53)
--- NOTE | 2018-02-21 15:02 | P.HPIM ---
History of Present Illness Primary Care Physician: UNKNOWN History of Present Illness: This patient is an 82-year-old female with a diagnosis of coronary artery disease, peripheral vascular disease, recent myocardial infarction. The patient was recently seen at our facility and discharged on 02/03/2018 to a [facility]dc facility. The patient was admitted after having non-ST segment elevation WI. As per cardiology documentation the patient had severe coronary artery disease and poor LV function ejection fraction 30% and was not suitable for PCI or CABG. Her medications were optimized on discharge to the fdc facility. The patient returned yesterday from the fdc facility with complaints of shortness of breath. The patient was requiring supplemental oxygen. She is a very poor historian however did state that she had some left- sided chest pain. In the emergency department a chest x-ray was done which showed pulmonary vascular congestion and small bilateral pulmonary effusions. Initial troponin was slightly elevated and has continued to show an up trend. Patient denies any fevers or chills, no abdominal pain, no diarrhea, no nausea or vomiting. Past medical history coronary artery disease, peripheral vascular disease, recent myocardial infarction, COPD, dyslipidemia, hypertension, history of stroke as per Dr. leahy. Surgical history history of endarterectomy, status post laser cataract surgery of both eyes. Family history significant for hypertension Social history the patient denies any history of tobacco smoking, no drug use, no significant history of alcohol abuse. Inpatient Certification: I certify that the inpatient services were ordered in accordance with Medicare regulations governing the order. This includes certification that hospital inpatient services are reasonable and necessary and in the case of services not specified as inpatient-only under 42 CFR 419.22(n), that they are appropriately provided as inpatient services in accordance to with the 2-midnight benchmark under 43 CFR 412.3(e) Estimated Total Length of Stay (Days): 2 Plans for Post Hospital Care: Not yet determined Review of Systems All other systems reviewed negative except as stated in [facility] - History History Provided By: Patient - Medical History Medical History: Medical History (Last Reviewed 02/21/18 @ 09:02 by Dante Hernandes) CAD (coronary artery disease) COPD (chronic obstructive pulmonary disease) High cholesterol Hypertension PVD (peripheral vascular disease) Stroke - Surgical History Surgical History: Surgical History (Last Reviewed 02/21/18 @ 09:02 by Dante Hernandes) H/O endarterectomy Status post laser cataract surgery of both eyes - Family History Family History: Family History (Last Reviewed 02/21/18 @ 00:23 by Vladimir Whalen DO) Brother Myocardial infarct Sister Myocardial infarct Other Hypertension - Tobacco History Second Hand Smoke Exposure: No Tobacco Use In Past 30 Days: No Smoking Status: Former smoker Tobacco Type: Cigarettes - Alcohol History How Often Do You Have a Drink Containing Alcohol: Monthly or less - Substance Use History Substance History: No History of Abuse - Travel History History of Recent Travel: No Recent Travel in the [place] Within the Last 8 Weeks: No Recent Travel Out of the Country Within the Last 8 Weeks: No - Immunization History Tetanus Immunization: >5 Years Hx Influenza Vaccine This Season: No Medications and Allergies Active Medications: Active Medications Acetaminophen (Tylenol) 650 mg PO Q4H PRN PRN Reason: Temp > 100.4 Last Admin: 02/21/18 12:02 Dose: 650 mg Hydrocodone Bitart/Acetaminophen ([place] 5/325) 1 tab PO Q12H PRN PRN Reason: Acute Pain Al Hydroxide/Mg Hydroxide (Milk Of Bob Call) 30 ml PO Q12H PRN PRN Reason: Mild Constipation Albuterol (Duoneb Neb (Prn)) 1 ampul NEB Q2HR NEB PRN PRN Reason: sob/wheezing Alprazolam (Xanax) 0.25 mg PO Q8H PRN PRN Reason: Breakthrough Anxiety Aspirin (Ecotrin) 81 mg PO DAILY [facility] Last Admin: 02/21/18 09:47 Dose: 81 mg Aspirin (Aspirin) 325 mg PO ONCE ONE Stop: 02/21/18 14:53 Atorvastatin Calcium (Lipitor) 40 mg PO HS [facility] Bisacodyl (Dulcolax Supp) 10 mg RECTAL DAILY PRN PRN Reason: SEVERE CONSITIPATION Carvedilol (Coreg) 12.5 mg PO BID [facility] Last Admin: 02/21/18 09:48 Dose: 12.5 mg Clopidogrel Bisulfate (Plavix) 75 mg PO DAILY [facility] Last Admin: 02/21/18 09:47 Dose: 75 mg Diazepam (Valium) 5 mg PO HS PRN PRN Reason: Anxiety Furosemide (Lasix Inj) 40 mg IV.PUSH BID@0900,1800 [facility] Last Admin: 02/21/18 08:50 Dose: 40 mg Heparin Sodium/Dextrose (Heparin/D5w 25,000 U/250 Ml) 25,000 unit in 250 mls @ 0 mls/hr IV.CONT TITRATE PRN; Protocol PRN Reason: Per Protocol Isosorbide Mononitrate (Imdur) 60 mg PO DAILY@0700 [facility] Last Admin: 02/21/18 09:47 Dose: 60 mg Lactulose (Lactulose Liq) 30 ml PO DAILY PRN PRN Reason: SEVERE CONSITIPATION Levothyroxine Sodium (Synthroid) 25 mcg PO DAILY@0600 [facility] Last Admin: 02/21/18 09:47 Dose: 25 mcg Losartan Potassium (Cozaar) 25 mg PO DAILY [facility] Last Admin: 02/21/18 09:47 Dose: 25 mg Miscellaneous (Pill Splitter) 0 each OTHER UNSCH PRN PRN Reason: SEE LABEL COMMENTS Ondansetron HCl (Zofran Inj) 4 mg IV.PUSH Q6H PRN PRN Reason: NAUSEA OR VOMITING Potassium Chloride (Klor-Con 10) 10 meq PO DAILY [facility] Last Admin: 02/21/18 09:47 Dose: 10 meq Senna/Docusate Sodium (Patricia-Colace) 1 tab PO BID [facility] Last Admin: 02/21/18 09:47 Dose: 1 tab Sennosides (Senokot) 17.2 mg PO Q12H PRN PRN Reason: Moderate Constipation Sertraline HCl (Zoloft) 25 mg PO HS [facility] Tolterodine Tartrate (Detrol La) 2 mg PO HS [facility] Allergies Allergy/AdvReac Type Severity Reaction Status Date / Time No Known Allergies Allergy Verified 02/20/18 23:19 Home Medications Medication Instructions Recorded Confirmed Type acetaminophen 500 mg PO Q4-6H PRN 02/20/18 02/20/18 History amino acids-protein hydrolys 1 packet PO DAILY 02/20/18 02/20/18 History [Pro-Stat Sugar Free] carvedilol 12.5 mg PO BID 02/20/18 02/20/18 History diazepam [Valium] 5 mg PO HS PRN 02/20/18 02/20/18 History ferrous sulfate 325 mg PO DAILY 02/20/18 02/20/18 History hydrocodone-acetaminophen 1 tab PO Q12H PRN 02/20/18 02/20/18 History melatonin 9 mg PO HS PRN 02/20/18 02/20/18 History potassium chloride 10 meq PO DAILY 02/20/18 02/20/18 History ranitidine HCl 75 mg PO BID 02/20/18 02/20/18 History sodium chloride 1,000 mg PO BID 02/20/18 02/20/18 History Exam Vital signs: Vital Signs 02/20/18 23:20 02/20/18 23:23 02/20/18 23:33 Temperature 97.9 F Pulse Rate 123 H 119 H 109 H Respiratory Rate 27 H 27 H Blood Pressure 137/86 142/83 H Pulse Oximetry 96 96 92 L 02/21/18 00:23 02/21/18 00:47 02/21/18 01:00 Temperature Pulse Rate 109 H 102 H 110 H Respiratory Rate 22 22 20 Blood Pressure 124/84 116/73 Pulse Oximetry 95 95 02/21/18 01:40 02/21/18 01:43 02/21/18 02:00 Temperature Pulse Rate 101 H 91 H Respiratory Rate 16 21 Blood Pressure 127/77 127/75 Pulse Oximetry 88 L 94 L 94 L 02/21/18 03:00 02/21/18 04:00 02/21/18 05:00 Temperature Pulse Rate 97 H 88 84 Respiratory Rate 18 21 21 Blood Pressure 157/87 H 142/84 H 136/77 Pulse Oximetry 97 94 L 95 02/21/18 05:30 02/21/18 05:32 02/21/18 06:55 Temperature Pulse Rate 86 Respiratory Rate 18 Blood Pressure 136/77 161/76 H Pulse Oximetry 100 100 02/21/18 06:57 02/21/18 07:00 02/21/18 07:01 Temperature 97.8 F Pulse Rate 99 H 86 Respiratory Rate 40 H 60 H 12 Blood Pressure 154/71 H 154/71 H 147/66 H Pulse Oximetry 100 100 100 02/21/18 07:16 02/21/18 07:31 02/21/18 07:39 Temperature Pulse Rate 82 83 Respiratory Rate 21 17 Blood Pressure 139/68 135/65 Pulse Oximetry 100 100 100 02/21/18 07:42 02/21/18 07:46 02/21/18 08:00 Temperature Pulse Rate 81 95 H Respiratory Rate 20 32 H Blood Pressure 134/68 Pulse Oximetry 100 100 99 02/21/18 08:01 02/21/18 08:16 02/21/18 08:31 Temperature Pulse Rate 96 H 90 87 Respiratory Rate 37 H 18 17 Blood Pressure 145/80 H 143/68 H 143/69 H Pulse Oximetry 100 100 100 02/21/18 08:46 02/21/18 09:00 02/21/18 09:01 Temperature Pulse Rate 82 83 82 Respiratory Rate 19 19 17 Blood Pressure 135/62 133/64 Pulse Oximetry 100 100 100 02/21/18 09:16 02/21/18 09:31 02/21/18 09:46 Temperature Pulse Rate 81 96 H 99 H Respiratory Rate 17 30 H 41 H Blood Pressure 137/65 170/75 H 158/74 H Pulse Oximetry 100 100 98 02/21/18 10:00 02/21/18 10:01 02/21/18 10:16 Temperature Pulse Rate 90 89 95 H Respiratory Rate 27 H 33 H Blood Pressure 151/75 H 133/58 L Pulse Oximetry 98 99 98 02/21/18 10:34 02/21/18 11:00 02/21/18 11:05 Temperature Pulse Rate 78 76 Respiratory Rate 34 H 28 H Blood Pressure 125/56 L 115/60 115/60 Pulse Oximetry 100 98 99 02/21/18 12:00 02/21/18 13:00 02/21/18 14:00 Temperature Pulse Rate 74 67 72 Respiratory Rate 29 H 2 L 35 H Blood Pressure Pulse Oximetry 99 99 99 02/21/18 14:05 02/21/18 14:12 Temperature Pulse Rate 73 72 Respiratory Rate 22 35 H Blood Pressure 84/45 L 101/52 L Pulse Oximetry 99 96 Intake & Output 02/20/18 02/21/18 02/21/18 18:59 06:59 18:59 Output Total 1999 Balance -1999 Weight 72.575 kg 60.1 kg Output: Urine Amount (Catheter) 1999 Indwelling Urethral Catheter 1999 Other: Weight On Admission 60.1 kg Narrative: General patient complains of some shortness of breath, no active chest pain. HEENT extraocular movements are intact, clear oropharyngeal mucosa Cardiovascular S1-S2 audible, RRR, no murmurs rubs or gallops Respiratory decreased breath sounds at the bases. Abdomen soft, nontender, nondistended, normal bowel sounds Extremities 2+ distal pulses Neuro patient can move all 4 extremities, sensation is intact bilaterally Results - Labs CBC & Chem 7: 02/20/18 23:43 02/20/18 23:43 Labs: Short CBC 02/20/18 Range/Units 23:43 WBC 8.1 (4.0-11.0) th/mm3 Hgb 10.4 L (11.6-15.3) gm/dL Hct 31.1 L (35.0-46.0) % Plt Count 256 (150-450) th/mm3 BMP 02/20/18 23:43 Sodium 135 L Potassium 4.0 Chloride 96 L Carbon Dioxide 31.9 BUN 9 Creatinine 0.84 Calcium 9.3 Cardiac Enzymes 02/20/18 02/21/18 02/21/18 Range/Units 23:43 05:55 12:17 Total Creatine Kinase 47 49 68 (26-192) U/L Troponin I 0.24 H 0.55 H D 1.17 H* D (0.02-0.05) ng/mL Liver Function 02/20/18 Range/Units 23:43 Total Bilirubin 0.5 (0.2-1.0) mg/dL AST 20 (15-37) U/L ALT 25 (10-53) U/L Alkaline Phosphatase 122 H (45-117) U/L Albumin 3.0 L (3.4-5.0) g/dL - Imaging Impressions Chest X-Ray 02/21/18 00:26 CONCLUSION: Cardiomegaly with mild interstitial edema pattern and small bilateral pleural effusions. Caprini VTE Risk Assessment Caprini VTE Risk Assessment: Moderate/High Risk (score >= 2) Caprini Risk Assessment Model: Point Value = 1 Point Value = 2 Point Value = 3 Point Value = 5 Age 41-60 Minor surgery BMI > 25 kg/m2 Swollen legs Varicose veins or History of unexplained or recurrent spontaneous Oral contraceptives or hormone replacement Sepsis (< 1 month) Serious lung disease, including pneumonia (< 1 month) Abnormal pulmonary function Acute myocardial infarction Congestive heart failure (< 1 month) History of inflammatory bowel disease Medical patient at bed rest Age 61-74 Arthroscopic surgery Major open surgery (> 45 min) Laparoscopic surgery (> 45 min) Malignancy Confined to bed (> 72 hours) Immobilizing plaster cast Central venous access Age >= 75 History of VTE Family history of VTE Factor V Leiden Prothrombin [id number] Lupus anticoagulant Anticardiolipin antibodies Elevated serum homocysteine Heparin-induced thrombocytopenia Other congenital or acquired thrombophilia Stroke (< 1 month) Elective arthroplasty Hip, pelvis, or leg fracture Acute spinal cord injury (< 1 month) Prophylaxis Regimen: Total Risk Factor Score Risk Level Prophylaxis Regimen 0-1 Low Early ambulation 2 Moderate Order ONE of the following: *Sequential Compression Device (SCD) *Heparin 5000 units SQ BID 3-4 Higher Order ONE of the following medications: *Heparin 5000 units SQ TID *Enoxaparin/Lovenox 40 mg SQ daily (WT < 150 kg, CrCl > 30 mL/min) *Enoxaparin/Lovenox 30 mg SQ daily (WT < 150 kg, CrCl > 10-29 mL/min) *Enoxaparin/Lovenox 30 mg SQ BID (WT < 150 kg, CrCl > 30 mL/min) AND/OR *Sequential Compression Device (SCD) 5 or more Highest Order ONE of the following medications: *Heparin 5000 units SQ TID (Preferred with Epidurals) *Enoxaparin/Lovenox 40 mg SQ daily (WT < 150 kg, CrCl > 30 mL/min) *Enoxaparin/Lovenox 30 mg SQ daily (WT < 150 kg, CrCl > 10-29 mL/min) *Enoxaparin/Lovenox 30 mg SQ BID (WT < 150 kg, CrCl > 30 mL/min) AND *Sequential Compression Device (SCD) Assessment and Plan - Plan This patient is an 82-year-old female with a diagnosis of coronary artery disease, peripheral vascular disease, recent myocardial infarction. The patient was recently seen at our facility and discharged on 02/03/2018 to a fdc facility. The patient was admitted after having non-ST segment elevation WI. As per cardiology documentation the patient had severe coronary artery disease and poor LV function ejection fraction 30% and was not suitable for PCI or CABG. Her medications were optimized on discharge to the fdc facility. The patient returned yesterday from the fdc facility with complaints of shortness of breath. The patient was requiring supplemental oxygen. She is a very poor historian however did state that she had some left- sided chest pain. In the emergency department a chest x-ray was done which showed pulmonary vascular congestion and small bilateral pulmonary effusions. Initial troponin was slightly elevated and has continued to show an up trend. 1. Acute on chronic systolic CHF exacerbation 2. Non-ST segment elevation WI 3. Coronary artery disease 4. Acute hypoxic restaurant failure likely secondary to #1 The patient presented with the symptoms mentioned above. As per recent documentation from cardiology and recent cardiac catheterization the patient is not a candidate for CABG or PCI. EKG was done which shows normal sinus rhythm, T wave inversions in the anterior leads. Troponins were elevated at 0.24 on admission and have now up trended to 1.17. Patient was given aspirin, continue Plavix, continue statin, continue beta- nicolle. Heparin drip will also be initiated. Cardiology has been consulted to evaluate the patient. Chest x-rays also shows bilateral pulmonary vascular congestion and small bilateral pleural effusions. She has decreased breath sounds on physical examination Currently she is on IV Lasix, will continue IV diuresis. Monitor strict ins and outs. Continue supplemental oxygen as needed. The patient's acute hypoxic respiratory failure is likely secondary to the acute systolic CHF exacerbation. I will follow-up with cardiology for their recommendations. As per their previous documentation prior to her last discharge the patient was thought to have a very poor prognosis. I will attempt to contact the patient's daughters and discussed the case with them as well. DVT prophylaxis, patient is currently on heparin. H&P: Quality - VTE Deep Vein Thrombosis/Pulmonary Embolism Present on Admission: No
[2018-02-21] MEDS ORDERED: Aspirin 325 MG Tablet PO ONE (15:15)
--- NOTE | 2018-02-21 16:05 | ECG ---
Date Performed: 02/21/2018 Time Performed: 05:55:14 PTAGE: 82 years EKG: Sinus rhythm POSSIBLE LEFT ATRIAL ENLARGEMENT POSSIBLE INFERIOR MYOCARDIAL INFARCTION BORDERLINE ECG PREVIOUS TRACING : 01/26/2018 18.18 Since the previous tracing, no significant change noted DOCTOR: Wil Ivey Interpretating Date/Time 02/21/2018 16:02:49
[2018-02-21 16:44] LABS: Activated Partial Thrombo Time 28.8 sec (23.4-31.7); INR 1.1 Ratio; Prothrombin Time 10.9 sec (9.8-11.6)
--- NOTE | 2018-02-21 18:46 | MB ---
cc: Evan Kaur MD DATE: 02/21/2018 REASON FOR CONSULTATION: Abnormal troponin level. HISTORY OF PRESENT ILLNESS: The patient is an 82-year-old white female, followed in our office by Dr. Vince Thurston, with a history of coronary artery disease, severe ischemic cardiomyopathy, ejection fraction 30%, peripheral vascular disease, carotid disease, hypertension, COPD, who was brought from her rehab facility due to increased shortness of breath and hypoxia. Chest x-ray suggests congestive heart failure, so she was admitted for further evaluation and treatment. The patient adamantly denies any recent chest pains. She states her shortness of breath has completely resolved. The patient also denies dizziness, syncope, near syncope, palpitations, paroxysmal nocturnal dyspnea, pedal edema. The patient reports compliance with her medications and a no added salt diet. PAST MEDICAL HISTORY: 1. Coronary artery disease, status post myocardial infarction and stent 2008 in [place]. Her last heart catheterization was done by Dr. Russel Rivera 01/31/2018 showing minor left main disease, diffuse severe disease of the mid to distal LAD, 99% ostial left circumflex, diffuse severe mid left circumflex disease, minor disease in a small nondominant right coronary. Ejection fraction was estimated at 30% at that time due to posterobasal akinesis and apical dyskinesis. She was felt not to be a candidate for percutaneous or surgical intervention. 2. Severe peripheral vascular disease. 3. Left carotid endarterectomy in 1998. 4. Cerebrovascular accident 1 week after her left carotid endarterectomy. 5. Chronic obstructive pulmonary disease. 6. Hypertension. 7. Hyperlipidemia. CARDIAC MEDICATIONS AT HOME: 1. Losartan 25 mg daily. 2. Imdur 60 mg daily. 3. Furosemide 20 mg daily. 4. Clopidogrel 75 mg daily. 5. Carvedilol 12.5 mg b.i.d. 6. Potassium chloride 10 mEq daily. 7. Aspirin 81 mg daily. ALLERGIES: NO KNOWN DRUG ALLERGIES. FAMILY HISTORY: Noncontributory. SOCIAL HISTORY: The patient is a former smoker. She denies alcohol abuse. REVIEW OF SYSTEMS: As in the history of present illness, otherwise negative or noncontributory. She also denies headache, abdominal pain, melena, dyspepsia, bright red blood per rectum, cough, wheezing. PHYSICAL EXAMINATION: VITAL SIGNS: Her blood pressure 101/52 with a pulse of 72, respirations 20. GENERAL: She is a well-developed, well-nourished white female, in no acute distress. NECK: Jugular venous pressure is normal. Carotid pulses are 2+ bilaterally and without bruits. CHEST: Reveals diminished breath sounds at the bases. CARDIAC: She has a regular rhythm and rate without S3, S4, or murmur. ABDOMEN: She has a soft, nontender abdomen. Bowel sounds are present. There is no definite hepatosplenomegaly. EXTREMITIES: Reveals no clubbing, cyanosis or edema. LABORATORY DATA: EKG shows sinus rhythm, diffuse nonspecific T-wave abnormalities. Chest x-ray shows increased interstitial markings and small bilateral pleural effusions. LABORATORY DATA: Includes WBC 8.1, hemoglobin 10.4, platelets 256, potassium 4.0, troponin 1.47. CK 68, BUN 9, creatinine 0.84. IMPRESSION: Abnormal troponin levels, congestive heart failure in this 82-year-old white female with a history of severe coronary artery disease, severe ischemic cardiomyopathy with ejection fraction of 30%, peripheral vascular disease, carotid disease, COPD, hypertension. Overall, there is no other evidence for acute coronary syndrome, CK levels are negative for myocardial infarction. The patient denies any chest pain symptoms. The elevation in troponin may be in part from congestive heart failure. Her previous records have been reviewed. Apparently, her coronary artery disease is felt not amenable to percutaneous or surgical revascularization. The patient is on a comprehensive medical regimen at home. RECOMMENDATIONS: 1. Continue intravenous furosemide through tonight. She can be discharged home in the morning from a cardiac standpoint on her usual comprehensive cardiac regimen, followup with Dr. Vince Thurston. Evan Kaur MD [facility]/ct , 05:54 PM , 06:03 PM [facility]
[2018-02-21] MEDS: Sertraline 50 MG Tablet PO SCH (20:55)
[2018-02-21] MEDS: Tolterodine Tartrate LA 2 MG Capsule PO SCH (21:18)
[2018-02-21] MEDS: diazePAM 5 MG Tablet PO PRN (23:41)
[2018-02-22] MEDS: Isosorbide Mononitrate 60 MG ER 24HR Tablet (Imdur) PO SCH ×2 (06:13→06:31)
[2018-02-22 06:53] LABS: Baso % (Auto) 0.2 % (0.0-2.0); Eos % (Auto) 0.1 % (0.0-4.0); Hematocrit 28.6 % (35.0-46.0); Hemoglobin 9.7 gm/dL (11.6-15.3); Lymph # (Auto) 1.3 th/mm3 (1.0-4.8); Lymph % (Auto) 17.7 % (9.0-44.0); Mean Corpuscular HGB Conc 34.1 % (32.0-36.0); Mean Corpuscular Hemoglobin 32.3 pg (27.0-34.0); Mean Corpuscular Volume 94.7 fL (80.0-100.0); Mean Platelet Volume 8.9 fL (7.0-11.0); Mono # (Auto) 0.5 th/mm3 (0.0-0.9); Mono % (Auto) 6.2 % (0.0-8.0); Neut # (Auto) 5.8 th/mm3 (1.8-7.7); Neut % (Auto) 75.8 % (16.0-70.0); Platelet Count 254 th/mm3 (150-450); Red Blood Count 3.02 mil/mm3 (4.00-5.30); Red Cell Distribution Width 13.5 % (11.6-17.2); White Blood Count 7.6 th/mm3 (4.0-11.0)
[2018-02-22 07:25] LABS: Calcium 9.1 mg/dL (8.5-10.1); Carbon Dioxide 35.7 meq/L (21.0-32.0); Magnesium 1.9 mg/dL (1.5-2.5); Potassium 3.1 meq/L (3.5-5.1)
[2018-02-22] MEDS: Senna/Docusate Sodium 8.6/50 MG Tablet PO SCH ×2 (08:46→20:23)
[2018-02-22] MEDS: Carvedilol 12.5 MG Tablet PO SCH ×3 (08:47→20:23)
--- NOTE | 2018-02-22 10:33 | P.PNIM ---
Subjective Interval history: Patient says she is starting to feel better. Still short of breath when she moves around. Physical Exam Vital signs: Vital Signs 02/21/18 10:34 02/21/18 11:00 02/21/18 11:05 Temperature Pulse Rate 78 76 Respiratory Rate 34 H 28 H Blood Pressure 125/56 L 115/60 115/60 Pulse Oximetry 100 98 99 02/21/18 12:00 02/21/18 13:00 02/21/18 14:00 Temperature Pulse Rate 74 67 72 Respiratory Rate 29 H 2 L 35 H Blood Pressure Pulse Oximetry 99 99 99 02/21/18 14:05 02/21/18 14:12 02/21/18 15:00 Temperature Pulse Rate 73 72 73 Respiratory Rate 22 35 H 27 H Blood Pressure 84/45 L 101/52 L 111/55 L Pulse Oximetry 99 96 98 02/21/18 16:00 02/21/18 17:00 02/21/18 18:00 Temperature Pulse Rate 69 69 68 Respiratory Rate 40 H 34 H 22 Blood Pressure 102/53 L 95/55 L 95/50 L Pulse Oximetry 99 99 98 02/21/18 19:00 02/21/18 20:00 02/21/18 20:05 Temperature 98.7 F Pulse Rate 70 71 Respiratory Rate 20 23 Blood Pressure 95/49 L 108/55 L Pulse Oximetry 100 99 99 02/21/18 21:00 02/21/18 22:00 02/21/18 23:00 Temperature Pulse Rate 73 87 73 Respiratory Rate 19 17 23 Blood Pressure 106/54 L 108/53 L 112/57 L Pulse Oximetry 98 99 99 02/22/18 00:00 02/22/18 01:00 02/22/18 01:01 Temperature 97.8 F Pulse Rate 85 77 77 Respiratory Rate 18 17 17 Blood Pressure 115/71 84/43 L 86/44 L Pulse Oximetry 98 99 99 02/22/18 01:03 02/22/18 01:09 02/22/18 01:47 Temperature Pulse Rate 79 79 79 Respiratory Rate 17 17 18 Blood Pressure 87/45 L 93/45 L 102/53 L Pulse Oximetry 97 96 99 02/22/18 02:00 02/22/18 03:00 02/22/18 03:04 Temperature Pulse Rate 79 78 82 Respiratory Rate 17 18 19 Blood Pressure 101/51 L 113/56 L Pulse Oximetry 99 99 98 02/22/18 04:00 02/22/18 05:00 02/22/18 06:00 Temperature 98.4 F Pulse Rate 77 70 77 Respiratory Rate 17 39 H 20 Blood Pressure 104/51 L 99/53 L 111/55 L Pulse Oximetry 97 99 99 02/22/18 07:00 02/22/18 08:00 02/22/18 08:01 Temperature 97.7 F Pulse Rate 75 71 Respiratory Rate 26 H 19 Blood Pressure 113/58 L 118/51 L Pulse Oximetry 99 100 98 02/22/18 09:00 Temperature Pulse Rate 81 Respiratory Rate 37 H Blood Pressure 119/63 Pulse Oximetry 100 Intake & Output 02/21/18 02/22/18 02/22/18 18:59 06:59 18:59 Intake Total 240 / 240 Output Total 875 / 875 500 / 500 Balance -635 / -635 -500 / -500 Weight 60.1 kg 56.8 kg Intake: Oral 240 / 240 Output: Urine Amount (Catheter) 875 / 875 500 / 500 Indwelling Urethral Catheter 875 / 875 500 / 500 Other: Weight On Admission 60.1 kg Narrative: General patient complains of some shortness of breathwhen moving around, no active chest pain. HEENT extraocular movements are intact, clear oropharyngeal mucosa Cardiovascular S1-S2 audible, RRR, no murmurs rubs or gallops Respiratory bibasilar crackles. Abdomen soft, nontender, nondistended, normal bowel sounds Extremities 2+ distal pulses Neuro patient can move all 4 extremities, sensation is intact bilaterally - Urinary Catheter Management Indwelling Urethral Catheter Cath placed during this visit: yes Reason for continuing: Hourly intake/output Insertion date: 02/21/18 Insertion time: 01:19 Results - Labs CBC & Chem 7: 02/22/18 05:42 02/22/18 05:42 Laboratory Results - last 24 hr 02/21/18 02/21/18 02/21/18 12:17 16:16 16:16 WBC RBC Hgb Hct MCV MCH MCHC RDW Plt Count MPV Neut % (Auto) Lymph % (Auto) Howell % (Auto) Eos % (Auto) Baso % (Auto) Neut # (Auto) Lymph # (Auto) Howell # (Auto) Eos # (Auto) Baso # (Auto) WBC Differential Differential Comment PT 10.9 INR 1.1 APTT 28.8 Sodium Potassium Chloride Carbon Dioxide Anion Gap BUN Creatinine Estimated GFR Random Glucose Calcium Magnesium Total Creatine Kinase 68 Troponin I 1.17 H* D 1.47 H* D B-Natriuretic Peptide 02/22/18 02/22/18 02/22/18 00:00 05:42 05:42 WBC 7.6 RBC 3.02 L Hgb 9.7 L Hct 28.6 L MCV 94.7 MCH 32.3 MCHC 34.1 RDW 13.5 Plt Count 254 MPV 8.9 Neut % (Auto) 75.8 H Lymph % (Auto) 17.7 Howell % (Auto) 6.2 Eos % (Auto) 0.1 Baso % (Auto) 0.2 Neut # (Auto) 5.8 Lymph # (Auto) 1.3 Howell # (Auto) 0.5 Eos # (Auto) 0.0 Baso # (Auto) 0.0 WBC Differential . Differential Comment Auto diff final PT INR APTT 40.5 H D Sodium 135 L Potassium 3.1 L D Chloride 94 L Carbon Dioxide 35.7 H Anion Gap 5 BUN 18 Creatinine 0.93 Estimated GFR 58 L Random Glucose 128 H D Calcium 9.1 Magnesium 1.9 Total Creatine Kinase Troponin I B-Natriuretic Peptide 02/22/18 02/22/18 05:42 05:42 WBC RBC Hgb Hct MCV MCH MCHC RDW Plt Count MPV Neut % (Auto) Lymph % (Auto) Howell % (Auto) Eos % (Auto) Baso % (Auto) Neut # (Auto) Lymph # (Auto) Howell # (Auto) Eos # (Auto) Baso # (Auto) WBC Differential Differential Comment PT INR APTT 37.3 H Sodium Potassium Chloride Carbon Dioxide Anion Gap BUN Creatinine Estimated GFR Random Glucose Calcium Magnesium Total Creatine Kinase Troponin I B-Natriuretic Peptide 806 H Microbiology 02/20/18 23:43 Blood - Peripheral Aerobic Blood Culture - Preliminary No growth in 1 day 02/20/18 23:43 Blood - Peripheral Anaerobic Blood Culture - Preliminary No growth in 1 day 02/20/18 23:43 Blood - Peripheral Aerobic Blood Culture - Preliminary No growth in 1 day 02/20/18 23:43 Blood - Peripheral Anaerobic Blood Culture - Preliminary No growth in 1 day Assessment and Plan - Plan This patient is an 82-year-old female with a diagnosis of coronary artery disease, peripheral vascular disease, recent myocardial infarction. The patient was recently seen at our facility and discharged on 02/03/2018 to a senior living facility. The patient was admitted after having non-ST segment elevation MD. As per cardiology documentation the patient had severe coronary artery disease and poor LV function ejection fraction 30% and was not suitable for PCI or CABG. Her medications were optimized on discharge to the senior living facility. The patient returned yesterday from the senior living facility with complaints of shortness of breath. The patient was requiring supplemental oxygen. She is a very poor historian however did state that she had some left- sided chest pain. In the emergency department a chest x-ray was done which showed pulmonary vascular congestion and small bilateral pulmonary effusions. Initial troponin was slightly elevated and has continued to show an up trend. 1. Acute on chronic systolic CHF exacerbation 2. Elevated troponins likely 2/ #1 3. Coronary artery disease 4. Acute hypoxic restaurant failure likely secondary to #1 The patient presented with the symptoms mentioned above. As per recent documentation from cardiology and recent cardiac catheterization the patient is not a candidate for CABG or PCI. EKG was done which shows normal sinus rhythm, T wave inversions in the anterior leads. Troponins were elevated at 0.24 on admission and have now up trended to 1.17, then 1.4. Cardiology believes this is likely because of the CHF exacerbation. Patient is on aspirin, continue Plavix, continue statin, continue beta-nicolle. Heparin drip will be stopped. Chest x-rays also shows bilateral pulmonary vascular congestion and small bilateral pleural effusions. Currently she is on IV Lasix, will continue IV diuresis. Patient is starting to feel better. Monitor strict ins and outs. Continue supplemental oxygen as needed. The patient's acute hypoxic respiratory failure is likely secondary to the acute systolic CHF exacerbation. Will try to wean the patient off of supplemental oxygen. Case management for discharge planning. Patient does not want to go back to the Rehab facility. Heparin for dvt prophylaxis.
--- NOTE | 2018-02-22 12:38 | ECG ---
Date Performed: 02/21/2018 Time Performed: 13:56:32 PTAGE: 82 years EKG: Sinus rhythm . Prolonged QT interval Ant/septal and lateral ST-T changes may be due to myocardial ischemia Abnorma l ECG PREVIOUS TRACING : 02/21/2018 05.55 DOCTOR: Andrae Abad Interpretating Date/Time 02/22/2018 12:36:55
[2018-02-22] MEDS: Sertraline 50 MG Tablet PO SCH (20:22)
[2018-02-22] MEDS: diazePAM 5 MG Tablet PO PRN (20:23)
[2018-02-22] MEDS: Heparin - SQ 10,000 UNITS/ML Vial SQ SCH (20:23)
[2018-02-22] MEDS: Tolterodine Tartrate LA 2 MG Capsule PO SCH (20:23)
[2018-02-22] MEDS: ALPRAZolam 0.25 MG Tablet PO PRN (23:57)
[2018-02-23] MEDS: Isosorbide Mononitrate 60 MG ER 24HR Tablet (Imdur) PO SCH (06:10)
[2018-02-23 06:11] LABS: Hemoglobin 10.1 gm/dL (11.6-15.3); Mean Corpuscular Hemoglobin 32.8 pg (27.0-34.0); Mean Corpuscular Volume 93.8 fL (80.0-100.0); Mean Platelet Volume 8.5 fL (7.0-11.0); Platelet Count 275 th/mm3 (150-450); Red Blood Count 3.09 mil/mm3 (4.00-5.30); Red Cell Distribution Width 13.6 % (11.6-17.2); White Blood Count 5.5 th/mm3 (4.0-11.0)
[2018-02-23 06:45] LABS: Calcium 8.6 mg/dL (8.5-10.1); Carbon Dioxide 33.9 meq/L (21.0-32.0); Magnesium 1.8 mg/dL (1.5-2.5); Potassium 3.4 meq/L (3.5-5.1)
[2018-02-23] MEDS: Senna/Docusate Sodium 8.6/50 MG Tablet PO SCH ×2 (09:26→21:15)
[2018-02-23] MEDS: Carvedilol 12.5 MG Tablet PO SCH ×2 (09:26→21:17)
[2018-02-23] MEDS: Heparin - SQ 10,000 UNITS/ML Vial SQ SCH ×2 (09:27→21:15)
--- NOTE | 2018-02-23 11:12 | P.PNIM ---
Subjective Interval history: The patient was resting in bed. She said that she was feeling a little woozy. She said she had some minor chest pain earlier that has resolved. She says she has some difficulty swallowing pills. She might be interested in going to a different residential facility. Discussed with nursing. Physical Exam Vital signs: Vital Signs 02/22/18 12:00 02/22/18 13:00 02/22/18 14:00 Temperature 97.4 F L Pulse Rate 84 86 Respiratory Rate 31 H 34 H 28 H Blood Pressure 114/53 L 101/52 L 108/55 L Pulse Oximetry 100 99 98 02/22/18 15:00 02/22/18 16:00 02/22/18 16:52 Temperature 98.6 F Pulse Rate 82 73 79 Respiratory Rate 22 27 H 31 H Blood Pressure 93/48 L 108/51 L 122/57 L Pulse Oximetry 98 100 98 02/22/18 17:00 02/22/18 17:01 02/22/18 18:00 Temperature Pulse Rate 92 H 73 Respiratory Rate 25 H Blood Pressure 122/57 L 104/53 L Pulse Oximetry 99 02/22/18 20:00 02/23/18 00:00 02/23/18 00:30 Temperature 97.7 F 98.9 F Pulse Rate 91 H 65 Respiratory Rate 19 18 Blood Pressure 108/52 L 97/54 L Pulse Oximetry 96 95 97 02/23/18 01:21 02/23/18 03:09 02/23/18 04:59 Temperature 98.2 F Pulse Rate 67 65 Respiratory Rate 16 18 Blood Pressure 96/58 L Pulse Oximetry 02/23/18 08:00 02/23/18 09:43 Temperature 98 F Pulse Rate 67 Respiratory Rate 20 Blood Pressure 124/72 Pulse Oximetry 96 96 Intake & Output 02/22/18 02/23/18 02/23/18 18:59 06:59 18:59 Intake Total 720 / 720 420 / 420 Output Total 1350 / 1350 750 / 750 Balance -630 / -630 -330 / -330 Weight 57 kg Intake: IV 0 / 0 Heparin/D5W 25,000 U/250 mL 25, 0 / 0 000 unit In 250 ml @ 700 UNITS/ HR 7 mls/hr IV.CONT TITRATE PRN Rx#:[id number] Oral 720 / 720 420 / 420 Output: Urine 700 / 700 750 / 750 Urine Amount (Catheter) 650 / 650 Indwelling Urethral Catheter 650 / 650 Other: # Voids 2 Narrative: General: No distress. HEENT: extraocular movements are intact, clear oropharyngeal mucosa. Cardiovascular: S1-S2 audible, RRR, no murmurs rubs or gallops. Respiratory: CTAB. Abdomen: soft, nontender, nondistended, normal bowel sounds. Extremities: 2+ distal pulses, no edema. Neuro: Patient can move all 4 extremities, sensation is intact bilaterally. - Urinary Catheter Management Indwelling Urethral Catheter Cath placed during this visit: yes Reason for continuing: Hourly intake/output Insertion date: 02/21/18 Insertion time: 01:19 Results - Labs CBC & Chem 7: 02/23/18 05:05 02/23/18 05:05 Laboratory Results - last 24 hr 02/22/18 02/23/18 02/23/18 13:06 05:05 05:05 WBC 5.5 RBC 3.09 L Hgb 10.1 L Hct 29.0 L MCV 93.8 MCH 32.8 MCHC 35.0 RDW 13.6 Plt Count 275 MPV 8.5 APTT 25.0 D Sodium 135 L Potassium 3.4 L Chloride 95 L Carbon Dioxide 33.9 H Anion Gap 6 BUN 16 Creatinine 0.85 Estimated GFR 64 L Random Glucose 102 Calcium 8.6 Magnesium 1.8 Microbiology 02/20/18 23:43 Blood - Peripheral Aerobic Blood Culture - Preliminary No growth in 3 days 02/20/18 23:43 Blood - Peripheral Anaerobic Blood Culture - Preliminary No growth in 3 days 02/20/18 23:43 Blood - Peripheral Aerobic Blood Culture - Preliminary No growth in 3 days 02/20/18 23:43 Blood - Peripheral Anaerobic Blood Culture - Preliminary No growth in 3 days Assessment and Plan - Plan Acute on chronic systolic CHF exacerbation/Elevated troponins/Coronary artery disease/Acute hypoxic restaurant failure The patient presented with complaints of shortness of breath and was requiring supplemental oxygen. She did state that she had some left-sided chest pain. In the emergency department a chest x-ray was done which showed pulmonary vascular congestion and small bilateral pulmonary effusions. Trops were elevated to 1.4. Cardiology consult appreciated. As per recent documentation from cardiology and recent cardiac catheterization the patient is not a candidate for CABG or PCI. EKG was done which shows normal sinus rhythm, T wave inversions in the anterior leads. -Patient is on aspirin, Plavix, statin and beta-nicolle. -Heparin drip was discontinued. -telemetry. -switch IV Lasix to PO. -Monitor strict ins and outs. -Continue supplemental oxygen as needed. Dysphagia/Weakness The pt endorses difficulty swallowing pills. She feels she is to weak to go home alone. -PT/OT/ST. -Case management for discharge planning. Hypokalemia Exacerbated by Lasix. -replete and monitor. Heparin for dvt prophylaxis. Discharge Planning: Anticipate d/c to SNF in 1-2 days
[2018-02-23] MEDS ORDERED: Potassium Chloride 25 MEQ Effervescent Tablet PO ONE (11:30)
[2018-02-23] MEDS: Famotidine 20 MG Tablet PO SCH (21:15)
[2018-02-23] MEDS: Sodium Chloride 1 GM Tablet PO SCH (21:16)
[2018-02-23] MEDS: Tolterodine Tartrate LA 2 MG Capsule PO SCH (21:16)
[2018-02-23] MEDS: Sertraline 50 MG Tablet PO SCH (21:16)
[2018-02-23] MEDS: diazePAM 5 MG Tablet PO PRN (21:16)
[2018-02-24] MEDS: Isosorbide Mononitrate 60 MG ER 24HR Tablet (Imdur) PO SCH (06:21)
[2018-02-24 07:23] LABS: Hematocrit 31.1 % (35.0-46.0); Hemoglobin 10.9 gm/dL (11.6-15.3); Mean Corpuscular HGB Conc 35.1 % (32.0-36.0); Mean Corpuscular Hemoglobin 32.9 pg (27.0-34.0); Mean Corpuscular Volume 93.8 fL (80.0-100.0); Platelet Count 314 th/mm3 (150-450); Red Blood Count 3.32 mil/mm3 (4.00-5.30); Red Cell Distribution Width 13.4 % (11.6-17.2); White Blood Count 5.5 th/mm3 (4.0-11.0)
[2018-02-24 07:51] LABS: Calcium 8.3 mg/dL (8.5-10.1); Carbon Dioxide 33.5 meq/L (21.0-32.0); Magnesium 1.8 mg/dL (1.5-2.5)
[2018-02-24] MEDS: Carvedilol 12.5 MG Tablet PO SCH ×2 (09:52→21:35)
[2018-02-24] MEDS: Senna/Docusate Sodium 8.6/50 MG Tablet PO SCH ×2 (09:52→21:40)
[2018-02-24] MEDS: Furosemide 40 MG Tablet PO SCH (09:52)
[2018-02-24] MEDS: Heparin - SQ 10,000 UNITS/ML Vial SQ SCH ×2 (09:53→21:40)
[2018-02-24] MEDS: Famotidine 20 MG Tablet PO SCH ×2 (09:53→21:34)
[2018-02-24] MEDS: Ferrous Sulfate 325 MG Tablet PO SCH (09:53)
[2018-02-24] MEDS: Sodium Chloride 1 GM Tablet PO SCH ×2 (09:53→21:34)
--- NOTE | 2018-02-24 12:09 | P.PNIM ---
Subjective Interval history: The patient wants to go somewhere where she can get physical therapy more than she did at the last rehab facility she was at. She denies any symptoms at this time. She says she is working on a project about aging in [place]. Discussed with nursing. Physical Exam Vital signs: Vital Signs 02/23/18 16:00 02/23/18 20:00 02/23/18 21:45 Temperature 97.2 F L 97.8 F Pulse Rate 66 65 Respiratory Rate 20 18 Blood Pressure 116/54 L 92/48 L Pulse Oximetry 99 96 96 02/24/18 00:00 02/24/18 04:00 02/24/18 08:00 Temperature 98.5 F 98.8 F 98 F Pulse Rate 65 73 68 Respiratory Rate 16 18 14 Blood Pressure 94/51 L 129/58 L 113/53 L Pulse Oximetry 98 93 L 96 02/24/18 09:00 02/24/18 10:00 Temperature 97.4 F L Pulse Rate 72 70 Respiratory Rate 15 Blood Pressure 110/53 L Pulse Oximetry Intake & Output 02/23/18 02/24/18 02/24/18 18:59 06:59 18:59 Intake Total 480 / 480 240 / 240 Output Total 800 / 800 500 / 500 Balance -320 / -320 -260 / -260 Weight 57.7 kg Intake: Oral 480 / 480 240 / 240 Output: Urine 800 / 800 500 / 500 Other: # Voids 6 # Bowel Movements 0 Narrative: General: No distress. HEENT: extraocular movements are intact, clear oropharyngeal mucosa. Cardiovascular: S1-S2 audible, RRR, no murmurs rubs or gallops. Respiratory: CTAB. Abdomen: soft, nontender, nondistended, normal bowel sounds. Extremities: 2+ distal pulses, no edema. Neuro: Patient can move all 4 extremities, sensation is intact bilaterally. - Urinary Catheter Management Indwelling Urethral Catheter Cath placed during this visit: yes Reason for continuing: Hourly intake/output Insertion date: 02/21/18 Insertion time: 01:19 Results - Labs CBC & Chem 7: 02/24/18 06:39 02/24/18 06:39 Laboratory Results - last 24 hr 02/24/18 02/24/18 06:39 06:39 WBC 5.5 RBC 3.32 L Hgb 10.9 L Hct 31.1 L MCV 93.8 MCH 32.9 MCHC 35.1 RDW 13.4 Plt Count 314 MPV 8.0 Sodium 136 Potassium 4.0 Chloride 96 L Carbon Dioxide 33.5 H Anion Gap 7 BUN 15 Creatinine 0.97 Estimated GFR 55 L Random Glucose 105 Calcium 8.3 L Magnesium 1.8 Microbiology 02/20/18 23:43 Blood - Peripheral Aerobic Blood Culture - Preliminary No growth in 4 days 02/20/18 23:43 Blood - Peripheral Anaerobic Blood Culture - Preliminary No growth in 4 days 02/20/18 23:43 Blood - Peripheral Aerobic Blood Culture - Preliminary No growth in 4 days 02/20/18 23:43 Blood - Peripheral Anaerobic Blood Culture - Preliminary No growth in 4 days Assessment and Plan - Plan Acute on chronic systolic CHF exacerbation/Elevated troponins/Coronary artery disease/Acute hypoxic restaurant failure The patient presented with complaints of shortness of breath and was requiring supplemental oxygen. She did state that she had some left-sided chest pain. In the emergency department a chest x-ray was done which showed pulmonary vascular congestion and small bilateral pulmonary effusions. Trops were elevated to 1.4. Cardiology consult appreciated. As per recent documentation from cardiology and recent cardiac catheterization the patient is not a candidate for CABG or PCI. EKG was done which shows normal sinus rhythm, T wave inversions in the anterior leads. -Patient is on aspirin, Plavix, statin and beta-nicolle. -Heparin drip was discontinued. -telemetry. -switched IV Lasix to 40 mg PO daily. -Monitor strict ins and outs. -Continue supplemental oxygen as needed. Dysphagia/Weakness The pt endorses difficulty swallowing pills. She feels she is to weak to go home alone. -PT/OT/ST. -Case management for discharge planning. Referred to [facility]. Hypokalemia Exacerbated by Lasix. -replete and monitor. Stable. Heparin for dvt prophylaxis. Discharge Planning: Awaiting placement, has been referred to [facility].
[2018-02-24] MEDS: Butalbital/APAP/Caff 50/325/40 MG Tablet PO PRN (15:25)
--- NOTE | 2018-02-24 15:25 | ECG ---
Date Performed: 02/23/2018 Time Performed: 08:54:22 PTAGE: 82 years EKG: Sinus rhythm with PAC(s). Lateral ST-T changes are nonspecific When compared to previous tracing, ST changes pers ist,but Somewhat improved. Borderline ECG PREVIOUS TRACING : 02/21/2018 13.56 DOCTOR: Vinicio Graves Interpretating Date/Time 02/24/2018 15:24:19
[2018-02-24] MEDS: Sertraline 50 MG Tablet PO SCH (21:40)
[2018-02-24] MEDS: Tolterodine Tartrate LA 2 MG Capsule PO SCH (21:40)
[2018-02-24] MEDS: diazePAM 5 MG Tablet PO PRN (21:48)
[2018-02-25] MEDS: Isosorbide Mononitrate 60 MG ER 24HR Tablet (Imdur) PO SCH (06:28)
[2018-02-25] MEDS: Carvedilol 12.5 MG Tablet PO SCH ×2 (09:01→20:51)
[2018-02-25] MEDS: Famotidine 20 MG Tablet PO SCH ×2 (09:01→20:52)
[2018-02-25] MEDS: Sodium Chloride 1 GM Tablet PO SCH ×2 (09:02→20:51)
[2018-02-25] MEDS: Ferrous Sulfate 325 MG Tablet PO SCH (09:03)
[2018-02-25] MEDS: Senna/Docusate Sodium 8.6/50 MG Tablet PO SCH ×2 (09:03→20:52)
[2018-02-25] MEDS: Furosemide 40 MG Tablet PO SCH (09:03)
[2018-02-25] MEDS: Heparin - SQ 10,000 UNITS/ML Vial SQ SCH ×2 (09:04→20:52)
[2018-02-25] MEDS: Butalbital/APAP/Caff 50/325/40 MG Tablet PO PRN ×2 (11:38→20:50)
[2018-02-25 13:03] LABS: Amorphous Sediment,Urine Few /hpf; Bacteria,Urine Many /hpf; Bilirubin,Urine Negative (Negative); Color,Urine Yellow (Yellw/Straw); Glucose,Urine (UA) Negative (Negative); Hyaline Casts,Urine 2 /lpf (0-3); Leukocyte Esterase,Urine Large (Negative); Mucus,Urine Few /lpf (Occasional); Nitrite,Urine Positive (Negative); Specific Gravity,Urine 1.006 (1.002-1.035); Squamous Epithelial Cell,Urine 2 /hpf (0-5)
[2018-02-25 13:05] LABS: Clarity,Urine Hazy (Clear)
--- NOTE | 2018-02-25 15:29 | P.PNIM ---
Subjective Interval history: Follow-up CAD, CHF, acute respiratory failure, PVD, and history of NM. Patient seen and examined, sitting on the chair, denies any pain or shortness of breath. Patient stated she is ready for a rehab however rehab does not want to take her. Now she is down here and no complaint that she does not do any rehab. Patient denies any chest pain at this time. Patient stated she do not really have a pain but some discomfort in her chest sometimes however there is none at this time. Patient denies any headache or dizziness, denies any abdominal pain, nausea, vomiting, diarrhea or constipation. Nurse reported patient complained of hesitancy in voiding. UA sent for urinalysis Physical Exam Vital signs: Vital Signs 02/24/18 16:00 02/24/18 17:47 02/24/18 20:00 Temperature 98.7 F 97.8 F Pulse Rate 71 73 Respiratory Rate 18 16 Blood Pressure 139/58 L 109/68 Pulse Oximetry 98 98 98 02/25/18 00:00 02/25/18 04:00 02/25/18 08:00 Temperature 98 F 98.8 F 98.4 F Pulse Rate 83 102 H 99 H Respiratory Rate 15 18 20 Blood Pressure 98/62 L 147/67 H 107/60 Pulse Oximetry 96 93 L 96 02/25/18 11:26 02/25/18 12:00 Temperature 98 F Pulse Rate 84 Respiratory Rate 20 Blood Pressure 100/54 L Pulse Oximetry 97 96 Intake & Output 02/24/18 02/25/18 02/25/18 18:59 06:59 18:59 Intake Total 500 / 500 240 / 240 Output Total 1999 / 1999 600 / 600 Balance -1500 / -1500 -360 / -360 Weight 57 kg Intake: Oral 500 / 500 240 / 240 Output: Urine 1999 / 2000 600 / 600 Other: # Voids 4 Date of Last Bowel Movement 02/24/18 02/24/18 02/25/18 # Bowel Movements 1 Narrative: GENERAL: Well-developed,, frail looking elderly female, in no apparent distress SKIN: Warm and dry. HEAD: Atraumatic. Normocephalic. EYES: Pupils equal and round. No scleral icterus. No injection or drainage. ENT: No nasal bleeding or discharge. Mucous membranes pink and moist. NECK: Trachea midline. No JVD. CARDIOVASCULAR: Regular rate and rhythm. RESPIRATORY: No accessory muscle use. Clear to auscultation. Breath sounds equal bilaterally. On oxygen 2 L via nasal cannula GASTROINTESTINAL: Abdomen soft, non-tender, nondistended. Hepatic and splenic margins not palpable. MUSCULOSKELETAL: Extremities without clubbing, cyanosis, or edema. No obvious deformities. NEUROLOGICAL: Awake and alert. No obvious cranial nerve deficits. Motor grossly within normal limits. Generalized weakness moving all 4 extremities normal speech. PSYCHIATRIC: Appropriate mood and affect; insight and judgment normal. - Urinary Catheter Management Indwelling Urethral Catheter Cath placed during this visit: yes Reason for continuing: Hourly intake/output Insertion date: 02/21/18 Insertion time: 01:19 Results - Labs CBC & Chem 7: 02/24/18 06:39 02/24/18 06:39 Laboratory Results - last 24 hr 02/25/18 12:15 Urine Color Yellow Urine Clarity Hazy H Urine pH 7.0 Ur Specific Mineral 1.006 Urine Protein Negative Urine Glucose (UA) Negative Urine Ketones Negative Urine Occult Blood Negative Urine Nitrate Positive H Urine Bilirubin Negative Urine Urobilinogen Less than 2 Ur Leukocyte Esterase Large H Urine RBC 3 Urine WBC 157 H Urine WBC Clumps Few H Ur Squamous Epith Cells 2 Amorphous Sediment Few H Urine Bacteria Many H Hyaline Casts 2 Urine Mucus Few H Micro UA Comment Culture indicated Ur Microscopic Review Not Reportable Urine Culture Comments Culture indicated Microbiology 02/20/18 23:43 Blood - Peripheral Aerobic Blood Culture - Final No growth in 5 days 02/20/18 23:43 Blood - Peripheral Anaerobic Blood Culture - Final No growth in 5 days 02/20/18 23:43 Blood - Peripheral Aerobic Blood Culture - Final No growth in 5 days 02/20/18 23:43 Blood - Peripheral Anaerobic Blood Culture - Final No growth in 5 days Assessment and Plan - Assessment (1) Acute non-ST elevation myocardial infarction (NSTEMI) Code(s): I21.4 - Non-ST elevation (NSTEMI) myocardial infarction Status: Acute (2) Elevated troponin Code(s): R74.8 - Abnormal levels of other serum enzymes Status: Acute (3) Frail elderly Code(s): R54 - Age-related physical debility Status: Acute (4) COPD (chronic obstructive pulmonary disease) Code(s): J44.9 - Chronic obstructive pulmonary disease, unspecified Status: Acute (5) Acute CHF (congestive heart failure) Code(s): I50.9 - Heart failure, unspecified Status: Acute (6) Dyspnea Code(s): R06.00 - Dyspnea, unspecified Status: Acute (7) Debility Code(s): R53.81 - Other malaise Status: Acute (8) Ischemic cardiomyopathy Code(s): I25.5 - Ischemic cardiomyopathy Status: Acute (9) Respiratory failure with hypoxia and hypercapnia Code(s): J96.91 - Respiratory failure, unspecified with hypoxia; J96.92 - Respiratory failure, unspecified with hypercapnia Status: Acute (10) Acute exacerbation of chronic obstructive pulmonary disease (COPD) Code(s): J44.1 - Chronic obstructive pulmonary disease with (acute) exacerbation Status: Acute - Plan This is an 82 yo female presented with complaints of shortness of breath and was requiring supplemental oxygen. She did state that she had some left-sided chest pain. Acute on chronic systolic CHF exacerbation Elevated troponins Coronary artery disease Acute hypoxic restaurant failure -Chest x-ray was done which showed pulmonary vascular congestion and small bilateral pulmonary effusions - Trops were elevated to 1.4. -Cardiology consult appreciated. As per recent documentation from cardiology and recent cardiac catheterization the patient is not a candidate for CABG or PCI. -Cleared to discharge with cardiology standpoint, and follow-up with Dr. Thurston as an outpatient -EKG was done which shows normal sinus rhythm, T wave inversions in the anterior leads. -continue on aspirin, Plavix, statin and beta-nicolle. -Heparin drip was discontinued. -telemetry. -Change Lasix to torsemide per discussion with Dr. Epps -Monitor strict ins and outs. -Continue supplemental oxygen as needed. Dysphagia/Weakness The pt endorses difficulty swallowing pills. She feels she is to weak to go home alone. -PT/OT/ST. -Case management for discharge planning. Plan to discharge to SNF when bed available Hypokalemia Exacerbated by Lasix. -Monitor BMP, replace as necessary dvt prophylaxis: Heparin Code Status: Full code Discussed Condition With: Patient, nurse, MDR Dr. Epps Discharge Planning: discharge in SNF when bed available (5) Acute CHF (congestive heart failure) Qualifiers: Heart failure type: unspecified Qualified Code(s): I50.9 - Heart failure, unspecified (9) Respiratory failure with hypoxia and hypercapnia Qualifiers: Chronicity: acute Qualified Code(s): J96.01 - Acute respiratory failure with hypoxia; J96.02 - Acute respiratory failure with hypercapnia
[2018-02-25] MEDS: Sertraline 50 MG Tablet PO SCH (20:51)
[2018-02-25] MEDS: ALPRAZolam 0.25 MG Tablet PO PRN (20:51)
[2018-02-25] MEDS: Tolterodine Tartrate LA 2 MG Capsule PO SCH (20:52)
[2018-02-25] MEDS: diazePAM 5 MG Tablet PO PRN (20:52)
[2018-02-26] MEDS: Isosorbide Mononitrate 60 MG ER 24HR Tablet (Imdur) PO SCH (06:43)
[2018-02-26] MEDS: Torsemide 20 MG Tablet PO SCH (08:48)
[2018-02-26] MEDS: Sodium Chloride 1 GM Tablet PO SCH ×2 (09:03→20:06)
[2018-02-26] MEDS: Carvedilol 12.5 MG Tablet PO SCH (09:03)
[2018-02-26] MEDS: Famotidine 20 MG Tablet PO SCH ×2 (09:03→20:04)
[2018-02-26] MEDS: Senna/Docusate Sodium 8.6/50 MG Tablet PO SCH ×2 (09:03→20:05)
[2018-02-26] MEDS: Ferrous Sulfate 325 MG Tablet PO SCH (09:04)
[2018-02-26] MEDS: Heparin - SQ 10,000 UNITS/ML Vial SQ SCH ×2 (09:04→20:05)
--- NOTE | 2018-02-26 10:42 | P.DS ---
Date of admission: 02/21/18 05:30 Primary care physician: UNKNOWN Attending physician on discharge: Liss Epps Anticipated date of discharge: 02/26/18 Brief History from admission: This patient is an 82-year-old female with a diagnosis of coronary artery disease, peripheral vascular disease, recent myocardial infarction. The patient was recently seen at our facility and discharged on 02/03/2018 to a long term facility. The patient was admitted after having non-ST segment elevation [place]. As per cardiology documentation the patient had severe coronary artery disease and poor LV function ejection fraction 30% and was not suitable for PCI or CABG. Her medications were optimized on discharge to the long term facility. The patient returned yesterday from the long term facility with complaints of shortness of breath. The patient was requiring supplemental oxygen. She is a very poor historian however did state that she had some left- sided chest pain. In the emergency department a chest x-ray was done which showed pulmonary vascular congestion and small bilateral pulmonary effusions. Initial troponin was slightly elevated and has continued to show an up trend. Patient denies any fevers or chills, no abdominal pain, no diarrhea, no nausea or vomiting. Past medical history coronary artery disease, peripheral vascular disease, recent myocardial infarction, COPD, dyslipidemia, hypertension, history of stroke as per Dr. leahy. Surgical history history of endarterectomy, status post laser cataract surgery of both eyes. Family history significant for hypertension Social history the patient denies any history of tobacco smoking, no drug use, no significant history of alcohol abuse. Patient update on day of discharge: Follow-up CAD, CHF, acute respiratory failure, PVD, and history of [place]. Patient seen and examined laying in bed, stated patient is not ready to go home by herself, and would prefer to be in a rehab facility however will need to decide with her daughter what facility to go. Patient denies any chest pain at this time, denies any headache or dizziness, denies any shortness of breath. Patient sleep well last night and ate good breakfast. Patient denies any abdominal pain, nausea, vomiting, diarrhea or constipation. Patient denies any fever or chills. Discharge planning discussed with social insurance specialist and nursing. DS: Diagnosis - Discharge Diagnosis (1) Acute non-ST elevation myocardial infarction (NSTEMI) Status: Acute (2) Elevated troponin Status: Acute (3) Frail elderly Status: Acute (4) COPD (chronic obstructive pulmonary disease) Status: Acute (5) Acute CHF (congestive heart failure) Status: Acute (6) Dyspnea Status: Acute (7) Debility Status: Acute (8) Ischemic cardiomyopathy Status: Acute (9) Respiratory failure with hypoxia and hypercapnia Status: Acute (10) Acute exacerbation of chronic obstructive pulmonary disease (COPD) Status: Acute DS: Medications - Discharge Medications Prescriptions: torsemide 20 mg PO DAILY 30 Days #30 tab DS: Summary Hospital Course: This is an 82 yo female presented with complaints of shortness of breath and was requiring supplemental oxygen. She did state that she had some left-sided chest pain. P was admitted for Acute on chronic systolic CHF exacerbation, Elevated troponin, Coronary artery disease, Acute hypoxic restaurant failure. Chest x-ray was done which showed pulmonary vascular congestion and small bilateral pulmonary effusions. Trops were elevated to 1.4. Cardiology consult , recent documentation from cardiology and recent cardiac catheterization the patient is not a candidate for CABG or PCI. Cleared to discharge with cardiology standpoint, and follow-up with Dr. Thurston as an outpatient. -EKG was done which shows normal sinus rhythm, T wave inversions in the anterior leads. Continue on aspirin, Plavix, statin and beta-nicolle. Patient also had Dysphagia/Weakness, pt endorses difficulty swallowing pills. She feels she is to weak to go home alone. PT/OT/ST rehab for evaluation and treatment. Case management was consulted for discharge planning to discharge to SNF when bed available. - Time Spent with Patient Total time spent providing and/or coordinating discharge services: Greater than 30 minutes - Quality: VTE Deep Vein Thrombosis/Pulmonary Embolism Present on Admission: No Exam Vital signs: Vital Signs 02/25/18 11:26 02/25/18 12:00 02/25/18 14:03 Temperature 98 F Pulse Rate 108 H Respiratory Rate 20 Blood Pressure 100/54 L Pulse Oximetry 97 96 Pulse Oximetry [Exertion on Room Air] 88 L Pulse Oximetry [Exertion with Oxygen] 92 L Pulse Oximetry [Resting on Room Air] 97 Pulse Oximetry [Resting with Oxygen] 99 02/25/18 16:00 02/25/18 20:00 02/25/18 20:59 Temperature 97.7 F 97.8 F Pulse Rate 76 75 101 H Respiratory Rate 18 16 Blood Pressure 138/65 107/56 L Pulse Oximetry 98 95 Pulse Oximetry [Exertion on Room Air] Pulse Oximetry [Exertion with Oxygen] Pulse Oximetry [Resting on Room Air] Pulse Oximetry [Resting with Oxygen] 02/26/18 00:00 02/26/18 04:00 02/26/18 08:00 Temperature 97.6 F 98.2 F 98.3 F Pulse Rate 72 71 98 H Respiratory Rate 16 16 18 Blood Pressure 103/49 L 132/60 95/57 L Pulse Oximetry 96 95 94 L Pulse Oximetry [Exertion on Room Air] Pulse Oximetry [Exertion with Oxygen] Pulse Oximetry [Resting on Room Air] Pulse Oximetry [Resting with Oxygen] Intake & Output 02/25/18 02/26/18 02/26/18 18:59 06:59 18:59 Intake Total 360 / 360 Output Total 1000 / 1000 Balance 360 / 360 -1000 / -1000 Weight 57.7 kg Intake: Oral 360 / 360 Output: Urine 1000 / 1000 Other: # Voids 3 Date of Last Bowel Movement 02/25/18 02/26/18 # Bowel Movements 2 Narrative: GENERAL: Well-developed,, frail looking elderly female, in no apparent distress SKIN: Warm and dry. HEAD: Atraumatic. Normocephalic. EYES: Pupils equal and round. No scleral icterus. No injection or drainage. ENT: No nasal bleeding or discharge. Mucous membranes pink and moist. NECK: Trachea midline. No JVD. CARDIOVASCULAR: Regular rate and rhythm. RESPIRATORY: No accessory muscle use. Clear to auscultation. Breath sounds equal bilaterally. On oxygen 2 L via nasal cannula GASTROINTESTINAL: Abdomen soft, non-tender, nondistended. Hepatic and splenic margins not palpable. MUSCULOSKELETAL: Extremities without clubbing, cyanosis, or edema. No obvious deformities. NEUROLOGICAL: Awake and alert. No obvious cranial nerve deficits. Motor grossly within normal limits. Generalized weakness moving all 4 extremities normal speech. PSYCHIATRIC: Appropriate mood and affect; insight and judgment normal. Results Procedures completed during hospitalization: n/a Labs on day of discharge: Labs from last 24 hours 02/25/18 12:15 Urine Color Yellow Urine Clarity Hazy H Urine pH 7.0 Ur Specific [place] 1.006 Urine Protein Negative Urine Glucose (UA) Negative Urine Ketones Negative Urine Occult Blood Negative Urine Nitrate Positive H Urine Bilirubin Negative Urine Urobilinogen Less than 2 Ur Leukocyte Esterase Large H Urine RBC 3 Urine WBC 157 H Urine WBC Clumps Few H Ur Squamous Epith Cells 2 Amorphous Sediment Few H Urine Bacteria Many H Hyaline Casts 2 Urine Mucus Few H Micro UA Comment Culture indicated Ur Microscopic Review Not Reportable Urine Culture Comments Culture indicated - Impressions ITS Impressions Chest X-Ray 02/21/18 00:26 CONCLUSION: Cardiomegaly with mild interstitial edema pattern and small bilateral pleural effusions. - Imaging and Cardiology CT scan - abdomen Status: image reviewed by nm Discharge Plan - Discharge Disposition Patient Disposition: Discharge to SNF - Discharge Condition Condition: Serious - Discharge Order Discharge Orders: Discharge Order (Routine); Ordered 02/26/18 Ordered By: Ada Wilson - Physicians Team Primary Care Provider: UNKNOWN, Attending Provider: Liss Epps Other Providers: [employer] ; Evan Kaur MD ; [facility],[place]
[2018-02-26] MEDS: ALPRAZolam 0.25 MG Tablet PO PRN (14:25)
[2018-02-26] MEDS ORDERED: Nitrofurantoin Monohydrate-Macrocrystal 100 MG Capsule PO SCH (18:00)
[2018-02-26] MEDS: Butalbital/APAP/Caff 50/325/40 MG Tablet PO PRN (20:04)
[2018-02-26] MEDS: Carvedilol 6.25 MG Tablet PO SCH (20:05)
[2018-02-26] MEDS: Sertraline 50 MG Tablet PO SCH (20:05)
[2018-02-26] MEDS: Tolterodine Tartrate LA 2 MG Capsule PO SCH (20:05)
[2018-02-27] MEDS: Isosorbide Mononitrate 60 MG ER 24HR Tablet (Imdur) PO SCH (06:00)
[2018-02-27] MEDS: Butalbital/APAP/Caff 50/325/40 MG Tablet PO PRN (06:09)
[2018-02-27] MEDS: Heparin - SQ 10,000 UNITS/ML Vial SQ SCH (08:39)
[2018-02-27] MEDS: Torsemide 20 MG Tablet PO SCH (08:40)
[2018-02-27] MEDS: Ferrous Sulfate 325 MG Tablet PO SCH (08:41)
[2018-02-27] MEDS: Famotidine 20 MG Tablet PO SCH (08:41)
[2018-02-27] MEDS: ALPRAZolam 0.25 MG Tablet PO PRN (08:41)
[2018-02-27] MEDS: Carvedilol 6.25 MG Tablet PO SCH (08:41)
[2018-02-27] MEDS: Sodium Chloride 1 GM Tablet PO SCH (08:42)
[2018-02-27] MEDS: Senna/Docusate Sodium 8.6/50 MG Tablet PO SCH (08:42)
--- NOTE | 2018-02-27 16:03 | P.PNIM ---
Subjective Interval history: Follow-up CAD, CHF, acute respiratory failure, PVD, and history of [place]. Patient seen and examined laying in bed, complains of left hip pain, worse with walking and radiating to her leg. Patient stated do not have that pain before just started. Patient denies any chest pain or shortness of breath at this time , denies any headache or dizziness, denies any abdominal pain, nausea, vomiting , diarrhea or constipation. Patient stated she had chest pain when she first came here but now is a lot better. Discussed discharge planning with patient stated does not want to go home and wants to go more for rehab. Discussed discharge planning and insurance coverage to explain with social media strategist. Nurse reported patient ambulatory in the hallway with no assistance. Discussed with nursing and request for social media strategist to update patient regarding discharge planning Physical Exam Vital signs: Vital Signs 02/26/18 16:00 02/26/18 20:00 02/27/18 00:00 Temperature 98.8 F 98.2 F 98.2 F Pulse Rate 75 97 H 79 Respiratory Rate 18 17 16 Blood Pressure 118/57 L 112/54 L 135/61 Pulse Oximetry 95 95 93 L Pulse Oximetry [Exertion on Room Air] Pulse Oximetry [Resting on Room Air] 02/27/18 04:00 02/27/18 08:00 02/27/18 12:00 Temperature 97.4 F L 98.0 F 99.0 F Pulse Rate 79 89 76 Respiratory Rate 17 18 18 Blood Pressure 145/63 H 134/69 101/56 L Pulse Oximetry 92 L 94 L 96 Pulse Oximetry [Exertion on Room Air] Pulse Oximetry [Resting on Room Air] 02/27/18 14:19 Temperature Pulse Rate Respiratory Rate Blood Pressure Pulse Oximetry Pulse Oximetry [Exertion on Room Air] 96 Pulse Oximetry [Resting on Room Air] 98 Intake & Output 02/26/18 02/27/18 02/27/18 18:59 06:59 18:59 Intake Total 480 / 480 Output Total 1450 / 1450 Balance -970 / -970 Intake: Oral 480 / 480 Output: Urine 1450 / 1450 Other: Date of Last Bowel Movement 02/26/18 # Bowel Movements 1 Narrative: GENERAL: Well-developed,, frail looking elderly female, in no apparent distress SKIN: Warm and dry. HEAD: Atraumatic. Normocephalic. EYES: Pupils equal and round. No scleral icterus. No injection or drainage. ENT: No nasal bleeding or discharge. Mucous membranes pink and moist. NECK: Trachea midline. No JVD. CARDIOVASCULAR: Regular rate and rhythm. RESPIRATORY: No accessory muscle use. Clear to auscultation. Breath sounds equal bilaterally. On oxygen 2 L via nasal cannula GASTROINTESTINAL: Abdomen soft, non-tender, nondistended. Hepatic and splenic margins not palpable. MUSCULOSKELETAL: Extremities without clubbing, cyanosis, or edema. No obvious deformities. NEUROLOGICAL: Awake and alert. No obvious cranial nerve deficits. Motor grossly within normal limits. Generalized weakness moving all 4 extremities normal speech. PSYCHIATRIC: Appropriate mood and affect; insight and judgment normal. - Urinary Catheter Management Indwelling Urethral Catheter Cath placed during this visit: yes Reason for continuing: Hourly intake/output Insertion date: 02/21/18 Insertion time: 01:19 Results - Labs CBC & Chem 7: 02/24/18 06:39 02/24/18 06:39 Microbiology 02/27/18 08:10 Stool Stool Occult Blood (JEIMY) - Final Hemoccult negative 02/25/18 12:15 Clean Catch Urine Urine Culture - Final Escherichia coli Staphylococcus coag negative - Procedures n/a Assessment and Plan - Assessment (1) Acute non-ST elevation myocardial infarction (NSTEMI) Code(s): I21.4 - Non-ST elevation (NSTEMI) myocardial infarction Status: Acute (2) Elevated troponin Code(s): R74.8 - Abnormal levels of other serum enzymes Status: Acute (3) Frail elderly Code(s): R54 - Age-related physical debility Status: Acute (4) COPD (chronic obstructive pulmonary disease) Code(s): J44.9 - Chronic obstructive pulmonary disease, unspecified Status: Acute (5) Acute CHF (congestive heart failure) Code(s): I50.9 - Heart failure, unspecified Status: Acute (6) Dyspnea Code(s): R06.00 - Dyspnea, unspecified Status: Acute (7) Debility Code(s): R53.81 - Other malaise Status: Acute (8) Ischemic cardiomyopathy Code(s): I25.5 - Ischemic cardiomyopathy Status: Acute (9) Respiratory failure with hypoxia and hypercapnia Code(s): J96.91 - Respiratory failure, unspecified with hypoxia; J96.92 - Respiratory failure, unspecified with hypercapnia Status: Acute (10) Acute exacerbation of chronic obstructive pulmonary disease (COPD) Code(s): J44.1 - Chronic obstructive pulmonary disease with (acute) exacerbation Status: Acute - Plan This is an 82 yo female presented with complaints of shortness of breath and was requiring supplemental oxygen. She did state that she had some left-sided chest pain. Acute on chronic systolic CHF exacerbation Elevated troponins Coronary artery disease Acute hypoxic restaurant failure -Chest x-ray was done which showed pulmonary vascular congestion and small bilateral pulmonary effusions - Trops were elevated to 1.4. -Cardiology consult appreciated. As per recent documentation from cardiology and recent cardiac catheterization the patient is not a candidate for CABG or PCI. -Cleared to discharge with cardiology standpoint, and follow-up with Dr. Thurston as an outpatient -EKG was done which shows normal sinus rhythm, T wave inversions in the anterior leads. -continue on aspirin, Plavix, statin and beta-nicolle. -Heparin drip was discontinued. Patient ambulatory -telemetry. -Continue torsemide -Monitor strict ins and outs. -Continue supplemental oxygen as needed. Dysphagia/Weakness The pt endorses difficulty swallowing pills. She feels she is to weak to go home alone. -PT/OT/ST. -Case management for discharge planning. Plan to discharge to SNF when bed available Hypokalemia Likely related to medication, Lasix. Improved -Monitor BMP, replace as necessary Bacteriuria Polyuria/dysuria UA positive for E. coli, staph coag negative -Started on Ceftin -Monitor signs and symptoms Hypothyroidism Stable Continue levothyroxine Monitor TSH Anxiety/depression Acute on chronic Continue Zoloft Monitor mental status Left hip pain Likely sciatic related -Left hip x-ray rule out acute process -Start on lidocaine patch -PRN Tylenol for pain -Monitor response dvt prophylaxis: Heparin subcu Code Status: Full code Discussed Condition With: Patient, nurse, social media strategist, MDR Discharge Planning: discharge in SNF when bed available (5) Acute CHF (congestive heart failure) Qualifiers: Heart failure type: unspecified Qualified Code(s): I50.9 - Heart failure, unspecified (9) Respiratory failure with hypoxia and hypercapnia Qualifiers: Chronicity: acute Qualified Code(s): J96.01 - Acute respiratory failure with hypoxia; J96.02 - Acute respiratory failure with hypercapnia
--- NOTE | 2018-02-27 17:17 | XR ---
EXAM DATE: 02/27/2018 5:10 PM EST AGE/SEX: 82 years / Female INDICATIONS: Left hip pain with no known injury. CLINICAL DATA: This is the patient's initial encounter. Patient reports that signs and symptoms have been present for 2 weeks and indicates a pain score of 10/10. MEDICAL/SURGICAL HISTORY: None. None. COMPARISON: No prior exams available for comparison. FINDINGS: Bony structures are intact and in normal alignment. Joints are intact without dislocation or signifi cant arthropathy. There are mild degenerative changes characteristic for patient's age. Osseous densi ty is normal. Soft tissues are unremarkable. No radiopaque foreign bodies seen. There are calcifica tions in the soft tissues consistent with PVD CONCLUSION: Mild degenerative changes characteristic for patient's age. Otherwise unremarkable examination. PVD Electronically signed by: Bruce Zepeda MD 02/27/2018 5:16 PM EST
[2018-02-27] MEDS ORDERED: Lidocaine 5% Patch T-DERMAL SCH (18:00)
[2018-02-27] MEDS ORDERED: Sulfamethoxazole/Trimethoprim 400/80 MG Tablet PO SCH (21:00)
[2018-02-27] MEDS ORDERED: Ciprofloxacin 500 MG Tablet PO SCH (21:00)
[2018-02-28] MEDS ORDERED: Lidocaine 5% Patch T-DERMAL SCH (09:00)
--- NOTE | 2018-03-01 11:51 | P.DCO ---
- Physical Therapy Order: Evaluate and treat, Improve ambulation, Strength and gait training - Occupational Therapy Order: Evaluate and treat, Improve ADL, Gross motor coordination, Fine motor coordination - Home Health Nursing Order: Medical education, Signs/symptoms of disease process, Nursing assessment with vital signs - Case Management Consult Case Management Consult-Home Health: Yes - Certification I have seen patient Patricia Hernandez on 03/01/18. My clinical findings support the need for the requested home health care services because: Limited mobility due to disease progression, Patient has SOB, Deconditioned with increased weakness, Limited ability to care for self, Need for psychosocial assistance, Impaired cognition/judgement, High risk of falls, Infection with risk of complications I certify that my clinical findings support that this patient is homebound because: Impaired cognitive ability/safety, Unsteady gait/balance, Unsafe to leave home unassisted, Need for psychosocial assistance, Non-ambulatory: confined to bed or chair, Unable to use public transportation
== END 2018-02-27 19:01 ==
LOC: NEPC 23:17 → NEDA 02-21 05:30 → N03 02-21 06:54 → N04 02-22 18:59
PROVIDERS: ADMIT Hospitalist; ATTEND Hospitalist

== ENCOUNTER 2018-03-16 07:09 | Inpatient (IN) ==
[2018-03-16] MEDS ORDERED: MethylPREDNISolone Sod Succinate Inj 125 MG/2 ML Vial IV.PUSH ONE (07:29)
--- NOTE | 2018-03-16 07:40 | ED ---
HPI General Chief complaint: Shortness of Breath/Dyspnea Stated complaint: resp Time Seen by Provider: 03/16/18 07:19 Source: patient Mode of arrival: EMS Limitations: other (poor historian) History of Present Illness HPI narrative: 82 y/o female presents by ambulance with shortness of breath. Per the ambulance team her room air saturation was 81%. She was given oxygen and a breathing treatment of DuoNeb. The patient states she is feeling better. The patient cannot tell me her medical history other than she had a heart attack recently. She does not remember she uses inhalers or not. She does deny any pain or fever but is a very poor historian. Related Data Home Medications Medication Instructions Recorded Confirmed acetaminophen 500 mg PO Q4-6H PRN 02/20/18 02/20/18 amino acids-protein hydrolys 1 packet PO DAILY 02/20/18 02/20/18 [Pro-Stat Sugar Free] carvedilol 12.5 mg PO BID 02/20/18 02/20/18 diazepam [Valium] 5 mg PO HS PRN 02/20/18 02/20/18 ferrous sulfate 325 mg PO DAILY 02/20/18 02/20/18 hydrocodone-acetaminophen 1 tab PO Q12H PRN 02/20/18 02/20/18 melatonin 9 mg PO HS PRN 02/20/18 02/20/18 potassium chloride 10 meq PO DAILY 02/20/18 02/20/18 ranitidine HCl 75 mg PO BID 02/20/18 02/20/18 sodium chloride 1,000 mg PO BID 02/20/18 02/20/18 Previous Rx's Medication Instructions Recorded alprazolam [Xanax] 0.25 mg PO Q8H PRN #60 tab 02/01/18 aspirin [Aspir-Low] 81 mg PO DAILY #30 tab 02/01/18 clopidogrel [Plavix] 75 mg PO DAILY #30 tab 02/01/18 ipratropium-albuterol 1 amp NEB Q2HR NEB PRN #100 ml 02/01/18 isosorbide mononitrate 60 mg PO DAILY@0700 #30 tab 02/01/18 levothyroxine 25 mcg PO DAILY #30 tab 02/01/18 losartan 25 mg PO DAILY #30 tab 02/01/18 nitroglycerin [Nitrostat] 0.4 mg SUBLINGUAL Q5M PRN #90 tab 02/01/18 sertraline [Zoloft] 25 mg PO HS #30 tab 02/01/18 tolterodine 1 mg PO HS #30 tab 02/01/18 torsemide 20 mg PO DAILY 30 Days #30 tab 02/26/18 Allergies Allergy/AdvReac Type Severity Reaction Status Date / Time No Known Allergies Allergy Verified 02/20/18 23:19 Review of Systems ROS: all other systems reviewed are negative [facility] Medical History Medical History CAD (coronary artery disease) (Acute) COPD (chronic obstructive pulmonary disease) (Acute) High cholesterol (Acute) Hypertension (Acute) PVD (peripheral vascular disease) (Acute) Stroke (Acute) Surgical History Surgical History H/O endarterectomy (Acute) Status post laser cataract surgery of both eyes (Acute) Family History Family History Brother Myocardial infarct Sister Myocardial infarct Other Hypertension Social History Social History Substance History: No History of Abuse Second Hand Smoke Exposure: No Smoking Status: Former smoker Tobacco Type: Cigarettes How Often Do You Have a Drink Containing Alcohol: Never Hx Recent Travel: No Recent Travel in [facility] within the Last 8 Weeks: No Recent Out of Country Travel within the Last 8 Weeks: No Immunization History Tetanus Immunization: Unsure Exam Narrative Exam Narrative: GENERAL: 82 y/o female in no apparent distress SKIN: Focused skin assessment warm/dry. HEAD: Atraumatic. Normocephalic. EYES: Pupils equal and round. No scleral icterus. No injection or drainage. ENT: No nasal bleeding or discharge. Mucous membranes pink and moist. NECK: Trachea midline. CARDIOVASCULAR: Regular rate and rhythm. RESPIRATORY: No accessory muscle use. faint wheezing bilaterally. GASTROINTESTINAL: Abdomen soft, non-tender, nondistended. MUSCULOSKELETAL: No obvious deformities. No clubbing. No cyanosis. NEUROLOGICAL: Awake. Motor grossly within normal limits. Normal speech. Course Reevaluation(s) Reevaluation #1: patient and friend updated and agree to admit, patient has leukocytosis and tachycardia so she was given Zosyn and azithromycin for pneumonia coverage of sepsis. Her blood pressure has been stable and her BNP is elevated so IV fluid hydration was held. Consultations Consultation #1: dr cruz agrees to admit Initial Documented Vital Signs Temperature 99.0 F 03/16/18 07:16 Pulse Rate 107 H 03/16/18 07:16 Respiratory Rate 17 03/16/18 07:16 Blood Pressure 122/74 03/16/18 07:16 Pulse Oximetry 98 03/16/18 07:16 Last Documented Vital Signs Temperature 99.0 F 03/16/18 07:16 Pulse Rate 95 H 03/16/18 07:45 Respiratory Rate 20 03/16/18 07:45 Blood Pressure 122/74 03/16/18 07:16 Pulse Oximetry 99 03/16/18 07:42 Medical Decision Making MDM Narrative Medical decision making narrative: We will check workup and dose with DuoNeb and Solu-Medrol and reevaluate Medical Screen Exam Complete: Yes Emergency Medical Condition: Yes Differential Diagnosis Differential Diagnosis: COPD, CHF, anemia, renal failure, pneumonia Lab Data Lab results reviewed: Yes I reviewed the patient's lab results. Result diagrams: 03/16/18 07:35 03/16/18 07:35 Lab Results 03/16/18 03/16/18 03/16/18 Range/Units 07:35 07:35 07:35 WBC 21.1 H (4.0-11.0) th/mm3 RBC 3.61 L (4.00-5.30) mil/mm3 Hgb 11.7 (11.6-15.3) gm/dL Hct 35.3 (35.0-46.0) % MCV 97.9 (80.0-100.0) fL MCH 32.4 (27.0-34.0) pg MCHC 33.1 (32.0-36.0) % RDW 14.5 (11.6-17.2) % Plt Count 201 D (150-450) th/mm3 MPV 8.5 (7.0-11.0) fL Prelim Diff (Auto) Slide review pending Neut % (Auto) 89.5 H (16.0-70.0) % Lymph % (Auto) 6.9 L (9.0-44.0) % Edgar % (Auto) 2.7 (0.0-8.0) % Eos % (Auto) 0.7 (0.0-4.0) % Baso % (Auto) 0.2 (0.0-2.0) % Neut # (Auto) 18.8 H (1.8-7.7) th/mm3 Lymph # (Auto) 1.4 (1.0-4.8) th/mm3 Edgar # (Auto) 0.6 (0.0-0.9) th/mm3 Eos # (Auto) 0.1 (0.0-0.4) th/mm3 Baso # (Auto) 0.1 (0.0-0.2) th/mm3 WBC Differential Manual diff final Seg Neuts % (Manual) 86 H (16-70) % Band Neuts % (Manual) 6 (0-6) % Lymphocytes % (Manual) 6 L (9-44) % Monocytes % (Manual) 2 (0-8) % Abs Neuts (Manual) 19.4 H (1.8-7.7) th/mm3 Differential Comment . Platelet Estimate Normal (Normal) Platelet Morphology Normal (Normal) PT 10.0 (9.8-11.6) sec INR 1.0 Ratio APTT 24.2 (23.4-31.7) sec Sodium (136-145) meq/L Potassium (3.5-5.1) meq/L Chloride (98-107) meq/L Carbon Dioxide (21.0-32.0) meq/L Anion Gap (5-15) meq/L BUN (7-18) mg/dL Creatinine (0.50-1.00) mg/dL Estimated GFR (>89) mL/min Random Glucose (74-106) mg/dL Lactic Acid 2.6 H (0.4-2.0) mmol/L Calcium (8.5-10.1) mg/dL Magnesium (1.5-2.5) mg/dL Total Bilirubin (0.2-1.0) mg/dL AST (15-37) U/L ALT (10-53) U/L Alkaline Phosphatase (45-117) U/L Total Creatine Kinase (26-192) U/L Troponin I (0.02-0.05) ng/mL B-Natriuretic Peptide (0-100) pg/mL Total Protein (6.4-8.2) g/dL Albumin (3.4-5.0) g/dL 03/16/18 03/16/18 Range/Units 07:35 07:35 WBC (4.0-11.0) th/mm3 RBC (4.00-5.30) mil/mm3 Hgb (11.6-15.3) gm/dL Hct (35.0-46.0) % MCV (80.0-100.0) fL MCH (27.0-34.0) pg MCHC (32.0-36.0) % RDW (11.6-17.2) % Plt Count (150-450) th/mm3 MPV (7.0-11.0) fL Prelim Diff (Auto) Neut % (Auto) (16.0-70.0) % Lymph % (Auto) (9.0-44.0) % Edgar % (Auto) (0.0-8.0) % Eos % (Auto) (0.0-4.0) % Baso % (Auto) (0.0-2.0) % Neut # (Auto) (1.8-7.7) th/mm3 Lymph # (Auto) (1.0-4.8) th/mm3 Edgar # (Auto) (0.0-0.9) th/mm3 Eos # (Auto) (0.0-0.4) th/mm3 Baso # (Auto) (0.0-0.2) th/mm3 WBC Differential Seg Neuts % (Manual) (16-70) % Band Neuts % (Manual) (0-6) % Lymphocytes % (Manual) (9-44) % Monocytes % (Manual) (0-8) % Abs Neuts (Manual) (1.8-7.7) th/mm3 Differential Comment Platelet Estimate (Normal) Platelet Morphology (Normal) PT (9.8-11.6) sec INR Ratio APTT (23.4-31.7) sec Sodium 137 (136-145) meq/L Potassium 4.1 (3.5-5.1) meq/L Chloride 100 (98-107) meq/L Carbon Dioxide 29.9 (21.0-32.0) meq/L Anion Gap 7 (5-15) meq/L BUN 8 (7-18) mg/dL Creatinine 1.07 H (0.50-1.00) mg/dL Estimated GFR 49 L (>89) mL/min Random Glucose 228 H (74-106) mg/dL Lactic Acid (0.4-2.0) mmol/L Calcium 9.4 (8.5-10.1) mg/dL Magnesium 2.0 (1.5-2.5) mg/dL Total Bilirubin 0.5 (0.2-1.0) mg/dL AST 21 (15-37) U/L ALT 18 (10-53) U/L Alkaline Phosphatase 113 (45-117) U/L Total Creatine Kinase 55 (26-192) U/L Troponin I 0.44 H (0.02-0.05) ng/mL B-Natriuretic Peptide 953 H (0-100) pg/mL Total Protein 7.1 (6.4-8.2) g/dL Albumin 3.4 (3.4-5.0) g/dL Imaging Data Attestation: I personally reviewed and interpreted this imaging study as follows : Radiologist's impression: Chest X-Ray 03/16/18 07:30 CONCLUSION: Minimal basilar parenchymal opacities Discharge Plan Discharge Disposition Patient Disposition: ED Admit(ED Internal Use Only) Discharge Order Discharge Orders: ED Use Only Admit Order (Routine); Ordered 03/16/18 Ordered By: Carmella Rasmussen Discharge Details Diagnosis: Sepsis, COPD with acute exacerbation Physicians Team ED Provider: Carmella Rasmussen Primary Care Provider: UNKNOWN, Rxs /Orders / Referrals /Forms Prescriptions: No Action ipratropium-albuterol 0.5 mg-3 mg(2.5 mg base)/3 mL Solution For Nebulization 1 amp NEB Q2HR NEB PRN (Reason: sob/wheezing) Qty: 100 RF: 0 clopidogrel [Plavix] 75 mg Tablet 75 mg PO DAILY Qty: 30 RF: 0 isosorbide mononitrate 60 mg Tablet Extended Release 24 Hr 60 mg PO DAILY@0700 Qty: 30 RF: 0 alprazolam [Xanax] 0.25 mg Tablet 0.25 mg PO Q8H PRN (Reason: Breakthrough Anxiety) Qty: 60 RF: 0 nitroglycerin [Nitrostat] 0.4 mg Tablet, Sublingual 0.4 mg Sublingual Q5M PRN (Reason: Chest Pain) Qty: 90 RF: 0 tolterodine 1 mg Tablet 1 mg PO HS Qty: 30 RF: 0 aspirin [Aspir-Low] 81 mg Tablet,Delayed Release (Dr/Ec) 81 mg PO DAILY Qty: 30 RF: 0 levothyroxine 25 mcg Tablet 25 mcg PO DAILY Qty: 30 RF: 0 losartan 25 mg Tablet 25 mg PO DAILY Qty: 30 RF: 0 sertraline [Zoloft] 25 mg Tablet 25 mg PO HS Qty: 30 RF: 0 sodium chloride 1 gram Tablet 1,000 mg PO BID RF: 0 potassium chloride 10 mEq Tablet Extended Release 10 meq PO DAILY RF: 0 melatonin 3 mg Tablet 9 mg PO HS PRN (Reason: Insomnia) RF: 0 acetaminophen 500 mg Tablet 500 mg PO Q4-6H PRN (Reason: Pain) RF: 0 ranitidine HCl 75 mg Tablet 75 mg PO BID RF: 0 ferrous sulfate 325 mg (65 mg iron) Tablet 325 mg PO DAILY RF: 0 diazepam [Valium] 5 mg Tablet 5 mg PO HS PRN (Reason: Anxiety) RF: 0 amino acids-protein hydrolys [Pro-Stat Sugar Free] 15 gram- 100 kcal/30 mL Liquid In Packet 1 packet PO DAILY RF: 0 carvedilol 25 mg tablet 12.5 mg PO BID RF: 0 hydrocodone-acetaminophen 5-325 mg tablet 1 tab PO Q12H PRN (Reason: Acute Pain) RF: 0 torsemide 20 mg Tablet 20 mg PO DAILY 30 Days Qty: 30 RF: 0 Discharge Interventions Interventions: Vital Signs Last Done: 03/16/18 07:22 Status ED Status: Admitted Patient
[2018-03-16 08:15] LABS: Baso # (Auto) 0.1 th/mm3 (0.0-0.2); Baso % (Auto) 0.2 % (0.0-2.0); Eos # (Auto) 0.1 th/mm3 (0.0-0.4); Eos % (Auto) 0.7 % (0.0-4.0); Hematocrit 35.3 % (35.0-46.0); Hemoglobin 11.7 gm/dL (11.6-15.3); Lymph # (Auto) 1.4 th/mm3 (1.0-4.8); Lymph % (Auto) 6.9 % (9.0-44.0); Mean Corpuscular HGB Conc 33.1 % (32.0-36.0); Mean Corpuscular Hemoglobin 32.4 pg (27.0-34.0); Mean Corpuscular Volume 97.9 fL (80.0-100.0); Mean Platelet Volume 8.5 fL (7.0-11.0); Mono # (Auto) 0.6 th/mm3 (0.0-0.9); Mono % (Auto) 2.7 % (0.0-8.0); Neut # (Auto) 18.8 th/mm3 (1.8-7.7); Neut % (Auto) 89.5 % (16.0-70.0); Platelet Count 201 th/mm3 (150-450); Red Blood Count 3.61 mil/mm3 (4.00-5.30); Red Cell Distribution Width 14.5 % (11.6-17.2); White Blood Count 21.1 th/mm3 (4.0-11.0)
--- NOTE | 2018-03-16 08:21 | XR ---
EXAM DATE: 03/16/2018 8:14 AM EST AGE/SEX: 82 years / Female INDICATIONS: Shortness of breath. CLINICAL DATA: This is the patient's initial encounter. Patient reports that signs and symptoms have been present for 1 day and indicates a pain score of 0/10. MEDICAL/SURGICAL HISTORY: None. None. COMPARISON: [facility] [place], CHEST 1V SINGLE AP, 02/21/2018. . FINDINGS: Minimal basilar parenchymal opacity which may be mild atelectasis or scarring. Cardiac contours are u nchanged. CONCLUSION: Minimal basilar parenchymal opacities Electronically signed by: Hal Fiore MD Board Certified Radiologist 03/16/2018 8:19 AM EST
[2018-03-16 08:28] LABS: Activated Partial Thrombo Time 24.2 sec (23.4-31.7)
[2018-03-16 08:36] LABS: Albumin 3.4 g/dL (3.4-5.0); Anion Gap 7 meq/L (5-15); Aspartate Aminotransferase 21 U/L (15-37); Blood Urea Nitrogen 8 mg/dL (7-18); Calcium 9.4 mg/dL (8.5-10.1); Carbon Dioxide 29.9 meq/L (21.0-32.0); Chloride 100 meq/L (98-107); Glomerular Filtration Rate 49 mL/min (>89); Glucose,Random 228 mg/dL (74-106); Potassium 4.1 meq/L (3.5-5.1); Sodium 137 meq/L (136-145)
[2018-03-16 08:37] LABS: Alanine Aminotransferase 18 U/L (10-53)
[2018-03-16] MEDS ORDERED: Piperacil/Tazo 4.5 GM Premix 4.5 GM/100 ML BAG IV.SIG STA (08:37)
[2018-03-16] MEDS ORDERED: Azithromycin Inj 500 MG in Sodium Chlor 0.9% Inj 250 ML IV.SIG STA (08:37)
[2018-03-16 08:40] LABS: Alkaline Phosphatase 113 U/L (45-117); Total Protein 7.1 g/dL (6.4-8.2); Troponin I 0.44 ng/mL (0.02-0.05)
[2018-03-16 08:41] LABS: Creatine Kinase 55 U/L (26-192)
[2018-03-16 08:49] LABS: Lymphocytes 6 % (9-44); Monocytes 2 % (0-8); Platelet Estimate Normal (Normal); Platelet Morphology Normal (Normal)
--- NOTE | 2018-03-16 11:42 | P.HPIM ---
History of Present Illness Primary Care Physician: UNKNOWN Chief Complaint: shortness of breath History of Present Illness: patient is a 82 y/o female with history of CAD, CHF, COPD,PVD, who presented to ER with shortness of breath. she was recently discharged from the hospital after she was treated for decompensated CHF. she says that she initially wanted to go to rehab but she then she went home. she says that she started to have worsening sob last night. she denies any chest pain, fever or productive cough although she had some chills. per the ER, her pulse-ox was in low 80's prior to her presentation to ER. she says that she lives alone but being helped by her daughter. Inpatient Certification Inpatient Certification: I certify that the inpatient services were ordered in accordance with Medicare regulations governing the order. This includes certification that hospital inpatient services are reasonable and necessary and in the case of services not specified as inpatient-only under 42 CFR 419.22(n), that they are appropriately provided as inpatient services in accordance to with the 2-midnight benchmark under 43 CFR 412.3(e) Estimated Total Length of Stay (Days): 2 Plans for Post Hospital Care: Not yet determined Review of Systems Review of Systems: all other systems reviewed are negative [facility] Medical History Medical History CAD (coronary artery disease) (Acute) COPD (chronic obstructive pulmonary disease) (Acute) High cholesterol (Acute) Hypertension (Acute) PVD (peripheral vascular disease) (Acute) Stroke (Acute) Surgical History Surgical History H/O endarterectomy (Acute) Status post laser cataract surgery of both eyes (Acute) Family History Family History Brother Myocardial infarct Sister Myocardial infarct Other Hypertension Social History Social History Substance History: No History of Abuse Second Hand Smoke Exposure: No Smoking Status: Former smoker Tobacco Type: Cigarettes How Often Do You Have a Drink Containing Alcohol: Never Hx Recent Travel: No Recent Travel in [facility] within the Last 8 Weeks: No Recent Out of Country Travel within the Last 8 Weeks: No Immunization History Tetanus Immunization: Unsure Medications and Allergies Allergies Allergy/AdvReac Type Severity Reaction Status Date / Time No Known Allergies Allergy Verified 02/20/18 23:19 Home Medications Medication Instructions Recorded Confirmed Type acetaminophen 500 mg PO Q4-6H PRN 02/20/18 03/16/18 History amino acids-protein hydrolys 1 packet PO DAILY 02/20/18 03/16/18 History [Pro-Stat Sugar Free] carvedilol 12.5 mg PO BID 02/20/18 03/16/18 History diazepam [Valium] 5 mg PO HS PRN 02/20/18 03/16/18 History ferrous sulfate 325 mg PO DAILY 02/20/18 03/16/18 History hydrocodone-acetaminophen 1 tab PO Q12H PRN 02/20/18 03/16/18 History melatonin 9 mg PO HS PRN 02/20/18 03/16/18 History potassium chloride 10 meq PO DAILY 02/20/18 03/16/18 History ranitidine HCl 75 mg PO BID 02/20/18 03/16/18 History sodium chloride 1,000 mg PO BID 02/20/18 03/16/18 History Active Medications: Active Medications Albuterol (Duoneb Neb (Prn)) 1 ampul NEB Q2HR NEB PRN PRN Reason: sob Physical Exam Vital signs: Last Vital Signs Temp 99.0 F 03/16/18 07:16 Pulse 95 H 03/16/18 07:45 Resp 20 03/16/18 07:45 BP 122/74 03/16/18 07:16 Pulse Ox 99 03/16/18 07:42 Intake & Output 03/14/18 03/15/18 03/16/18 03/17/18 06:59 06:59 06:59 06:59 Intake Total 350 / 350 Balance 350 / 350 Weight 54.431 kg Constitutional no acute distress Routine HEENT Exam Eye: Present PERRL Routine Neck Exam Present supple Routine Respiratory Exam Present CTA bilaterally Comments: however diminished in the bases. Routine Cardiovascular Exam Present RRR Routine Abdominal Exam Present soft Routine Extremities Exam Comments: no pedal edema. Routine Neurological Exam Present alert and oriented X3 Results Labs CBC & Chem 7: 03/16/18 07:35 03/16/18 07:35 Imaging Impressions Chest X-Ray 03/16/18 07:30 CONCLUSION: Minimal basilar parenchymal opacities Caprini VTE Risk Assessment Caprini VTE Risk Assessment: Moderate/High Risk (score >= 2) Caprini Risk Assessment Model: Point Value = 1 Point Value = 2 Point Value = 3 Point Value = 5 Age 41-60 Minor surgery BMI > 25 kg/m2 Swollen legs Varicose veins or History of unexplained or recurrent spontaneous Oral contraceptives or hormone replacement Sepsis (< 1 month) Serious lung disease, including pneumonia (< 1 month) Abnormal pulmonary function Acute myocardial infarction Congestive heart failure (< 1 month) History of inflammatory bowel disease Medical patient at bed rest Age 61-74 Arthroscopic surgery Major open surgery (> 45 min) Laparoscopic surgery (> 45 min) Malignancy Confined to bed (> 72 hours) Immobilizing plaster cast Central venous access Age >= 75 History of VTE Family history of VTE Factor V Leiden Prothrombin [id number] Lupus anticoagulant Anticardiolipin antibodies Elevated serum homocysteine Heparin-induced thrombocytopenia Other congenital or acquired thrombophilia Stroke (< 1 month) Elective arthroplasty Hip, pelvis, or leg fracture Acute spinal cord injury (< 1 month) Prophylaxis Regimen: Total Risk Factor Score Risk Level Prophylaxis Regimen 0-1 Low Early ambulation 2 Moderate Order ONE of the following: *Sequential Compression Device (SCD) *Heparin 5000 units SQ BID 3-4 Higher Order ONE of the following medications: *Heparin 5000 units SQ TID *Enoxaparin/Lovenox 40 mg SQ daily (WT < 150 kg, CrCl > 30 mL/min) *Enoxaparin/Lovenox 30 mg SQ daily (WT < 150 kg, CrCl > 10-29 mL/min) *Enoxaparin/Lovenox 30 mg SQ BID (WT < 150 kg, CrCl > 30 mL/min) AND/OR *Sequential Compression Device (SCD) 5 or more Highest Order ONE of the following medications: *Heparin 5000 units SQ TID (Preferred with Epidurals) *Enoxaparin/Lovenox 40 mg SQ daily (WT < 150 kg, CrCl > 30 mL/min) *Enoxaparin/Lovenox 30 mg SQ daily (WT < 150 kg, CrCl > 10-29 mL/min) *Enoxaparin/Lovenox 30 mg SQ BID (WT < 150 kg, CrCl > 30 mL/min) AND *Sequential Compression Device (SCD) Assessment and Plan Plan A/P - acute hypoxemic respiratory failure COPD exacerbation- possible pneumonia ( recently discharged from the hospital) continue with scheduled and prn neb treatment- continue with IV antibiotics , steroids and follow the cultures. keep on oxygen as needed to keep O2 sat > 90%. -CAD/ chronic systolic CHF- continue aspirin, plavix, coreg, imdur and diuretic. -Hyperglycemia; start on accu-check and check A1c. -PVD; continue aspirin and plavix -consult PT and case management. -DVT prophylaxis with SCD's Discussed Condition With: ER physician and the patient. Discharge Planning: when medically stable. she's willing to go to rehab.
[2018-03-16] MEDS ORDERED: Vancomycin Consult Pharmacy OTHER PRN (11:45)
[2018-03-16] MEDS ORDERED: Dextrose 50% in Water 50 ML Vial IV.PUSH PRN (11:51)
[2018-03-16] MEDS ORDERED: Vancomycin Inj 1,000 MG in Sodium Chlor 0.9% Inj 250 ML IV.SIG ONE (12:30)
[2018-03-16] MEDS: MethylPREDNISolone Sod Succinate Inj 40 MG/ML Vial IV.PUSH SCH ×2 (13:28→21:24)
[2018-03-16] MEDS: Insulin NovoLOG Aspart Correctional Sugar Inj SQ SCH ×3 (13:29→21:41)
[2018-03-16 15:52] LABS: Hemoglobin A1c 5.8 % (4.3-6.0)
--- NOTE | 2018-03-16 16:00 | ECG ---
Date Performed: 03/16/2018 Time Performed: 07:23:03 PTAGE: 82 years EKG: SINUS TACHYCARDIA POSSIBLE INFERIOR WALL MYOCARDIAL INFARCTION, OF UNDETERMINED AGE NONSPEC IFIC ST-T CHANGES Compared to previous tracing, T-wave changes anterolaterally are new, otherwise no signficant change. ABNORMAL ECG PREVIOUS TRACING : 02/23/2018 08.54 DOCTOR: Taras Soto Interpretating Date/Time 03/16/2018 15:59:30
[2018-03-16] MEDS: ALPRAZolam 0.25 MG Tablet PO PRN (19:05)
[2018-03-16] MEDS: Acetaminophen 325 MG Tablet PO PRN (21:19)
[2018-03-16] MEDS: Tolterodine Tartrate LA 2 MG Capsule PO SCH ×2 (21:20→21:32)
[2018-03-16] MEDS: Sertraline 50 MG Tablet PO SCH (21:20)
[2018-03-16] MEDS: Carvedilol 6.25 MG Tablet PO SCH (21:23)
[2018-03-16] MEDS: Famotidine 20 MG Tablet PO SCH (21:23)
[2018-03-16] MEDS ORDERED: Morphine Inj 4 MG/ML Vial IV.PUSH ONE (22:47)
[2018-03-17 00:22] LABS: Bilirubin,Urine Negative (Negative); Clarity,Urine Clear (Clear); Color,Urine Yellow (Yellw/Straw); Glucose,Urine (UA) Negative (Negative); Leukocyte Esterase,Urine Trace (Negative); Nitrite,Urine Negative (Negative); Specific Gravity,Urine 1.009 (1.002-1.035); Squamous Epithelial Cell,Urine 2 /hpf (0-5)
[2018-03-17] MEDS: Isosorbide Mononitrate 60 MG ER 24HR Tablet (Imdur) PO SCH (06:32)
[2018-03-17] MEDS: MethylPREDNISolone Sod Succinate Inj 40 MG/ML Vial IV.PUSH SCH ×3 (06:33→22:40)
[2018-03-17] MEDS: Insulin NovoLOG Aspart Correctional Sugar Inj SQ SCH ×4 (07:51→22:32)
[2018-03-17] MEDS: Torsemide 20 MG Tablet PO SCH (10:01)
[2018-03-17] MEDS: Famotidine 20 MG Tablet PO SCH ×2 (10:01→22:40)
[2018-03-17] MEDS: Carvedilol 6.25 MG Tablet PO SCH ×3 (10:01→22:57)
[2018-03-17] MEDS: Acetaminophen 325 MG Tablet PO PRN (10:01)
[2018-03-17] MEDS: Ferrous Sulfate 325 MG Tablet PO SCH (10:01)
[2018-03-17] MEDS: ALPRAZolam 0.25 MG Tablet PO PRN ×3 (10:01→22:58)
--- NOTE | 2018-03-17 10:14 | P.PNIM ---
Subjective Interval history: f/u; copd exacerbation with some respiratory distress. on oxygen via N/C @ 3 lit/m. no fever. complaining of headache. d/w the RN at the bedside. Physical Exam Vital signs: Last Vital Signs Temp 97.2 F L 03/17/18 04:00 Pulse 98 H 03/17/18 06:51 Resp 22 03/17/18 06:51 BP 111/57 L 03/17/18 04:00 Pulse Ox 95 03/17/18 06:51 Intake & Output 03/15/18 03/16/18 03/17/18 03/18/18 06:59 06:59 06:59 06:59 Intake Total 1080 / 1080 Output Total 600 / 600 Balance 480 / 480 Weight 58.8 kg Constitutional mild distress Routine Respiratory Exam Present diminished air movement Routine Cardiovascular Exam Present RRR Routine Abdominal Exam Present soft Routine Extremities Exam Comments: no pedal edema. Routine Neurological Exam Present alert and oriented X3 Results Labs CBC & Chem 7: 03/16/18 07:35 03/16/18 07:35 Assessment and Plan Plan A/P - acute hypoxemic respiratory failure COPD exacerbation- possible pneumonia ( recently discharged from the hospital) continue with scheduled and prn neb treatment- continue with IV antibiotics , steroids and follow the cultures. keep on oxygen as needed to keep O2 sat > 90%. will check ABG- will consider pulmonary evaluation. -CAD/ chronic systolic CHF- continue aspirin, plavix, coreg, imdur and diuretic. -Hyperglycemia; start on accu-check - A1c 5.8. -PVD; continue aspirin and plavix -consulted PT and case management. -DVT prophylaxis with SCD's Discharge Planning: when medically stable. she's willing to go to rehab. Progress Note: Quality VTE Deep Vein Thrombosis/Pulmonary Embolism Present on Admission: No
[2018-03-17] MEDS: Piperacil/Tazo 3.375 GM Premix 3.375 GM/50 ML PIGGYBACK IV.SIG SCH ×2 (16:15→23:47)
[2018-03-17] MEDS: Butalbital/APAP/Caff 50/325/40 MG Tablet PO PRN (18:29)
[2018-03-17 20:37] LABS: Baso % (Auto) 0.1 % (0.0-2.0); Hematocrit 29.7 % (35.0-46.0); Hemoglobin 10.1 gm/dL (11.6-15.3); Lymph # (Auto) 0.6 th/mm3 (1.0-4.8); Lymph % (Auto) 4.5 % (9.0-44.0); Mean Corpuscular Hemoglobin 32.5 pg (27.0-34.0); Mean Corpuscular Volume 95.7 fL (80.0-100.0); Mean Platelet Volume 8.9 fL (7.0-11.0); Mono # (Auto) 0.2 th/mm3 (0.0-0.9); Mono % (Auto) 1.4 % (0.0-8.0); Neut # (Auto) 11.6 th/mm3 (1.8-7.7); Platelet Count 185 th/mm3 (150-450); Red Blood Count 3.11 mil/mm3 (4.00-5.30); Red Cell Distribution Width 14.8 % (11.6-17.2); White Blood Count 12.4 th/mm3 (4.0-11.0)
[2018-03-17 21:07] LABS: Vancomycin,Random 9.1 Comment
[2018-03-17] MEDS: Tolterodine Tartrate LA 2 MG Capsule PO SCH (22:35)
[2018-03-17] MEDS: Sertraline 50 MG Tablet PO SCH (22:36)
[2018-03-18] MEDS: Butalbital/APAP/Caff 50/325/40 MG Tablet PO PRN ×2 (02:42→09:16)
[2018-03-18 05:30] LABS: Baso % (Auto) 0.1 % (0.0-2.0); Hematocrit 26.8 % (35.0-46.0); Hemoglobin 9.3 gm/dL (11.6-15.3); Lymph # (Auto) 0.7 th/mm3 (1.0-4.8); Lymph % (Auto) 6.2 % (9.0-44.0); Mean Corpuscular HGB Conc 34.6 % (32.0-36.0); Mean Corpuscular Hemoglobin 33.3 pg (27.0-34.0); Mean Corpuscular Volume 96.2 fL (80.0-100.0); Mean Platelet Volume 8.6 fL (7.0-11.0); Mono # (Auto) 0.3 th/mm3 (0.0-0.9); Mono % (Auto) 2.6 % (0.0-8.0); Neut # (Auto) 10.9 th/mm3 (1.8-7.7); Neut % (Auto) 91.1 % (16.0-70.0); Platelet Count 171 th/mm3 (150-450); Red Blood Count 2.78 mil/mm3 (4.00-5.30); Red Cell Distribution Width 14.5 % (11.6-17.2)
[2018-03-18] MEDS: MethylPREDNISolone Sod Succinate Inj 40 MG/ML Vial IV.PUSH SCH ×3 (06:51→23:20)
[2018-03-18] MEDS: Piperacil/Tazo 3.375 GM Premix 3.375 GM/50 ML PIGGYBACK IV.SIG SCH ×3 (06:52→23:20)
[2018-03-18] MEDS: Isosorbide Mononitrate 60 MG ER 24HR Tablet (Imdur) PO SCH (06:52)
[2018-03-18] MEDS: Insulin NovoLOG Aspart Correctional Sugar Inj SQ SCH ×4 (09:15→23:22)
[2018-03-18] MEDS: Carvedilol 6.25 MG Tablet PO SCH ×2 (09:16→23:00)
[2018-03-18] MEDS: Torsemide 20 MG Tablet PO SCH (09:16)
[2018-03-18] MEDS: Famotidine 20 MG Tablet PO SCH ×2 (09:17→23:22)
[2018-03-18] MEDS: Ferrous Sulfate 325 MG Tablet PO SCH (09:17)
[2018-03-18] MEDS: ALPRAZolam 0.25 MG Tablet PO PRN ×2 (09:17→23:21)
--- NOTE | 2018-03-18 10:49 | P.PNIM ---
Subjective Interval history: in no acute distress. says that her sob is improving. no fever. complaining of some diarrhea; no abdominal pain/vomiting. Physical Exam Vital signs: Last Vital Signs Temp 97.4 F L 03/18/18 08:00 Pulse 80 03/18/18 08:00 Resp 15 03/18/18 08:00 BP 102/52 L 03/18/18 08:00 Pulse Ox 99 03/18/18 08:00 Intake & Output 03/16/18 03/17/18 03/18/18 03/19/18 06:59 06:59 06:59 06:59 Intake Total 1080 / 1080 580 / 580 50 / 50 Output Total 600 / 600 1100 / 1100 400 / 400 Balance 480 / 480 -520 / -520 -350 / -350 Weight 58.8 kg Constitutional no acute distress Routine Respiratory Exam Present CTA bilaterally Routine Cardiovascular Exam Present RRR Routine Abdominal Exam Present soft Routine Extremities Exam Comments: no pedal edema. Routine Neurological Exam Present alert and oriented X3 Results Labs CBC & Chem 7: 03/18/18 04:54 03/17/18 19:21 Labs: Microbiology 03/16/18 07:35 Blood - Peripheral Aerobic Blood Culture - Preliminary No growth in 1 day 03/16/18 07:35 Blood - Peripheral Anaerobic Blood Culture - Preliminary No growth in 1 day Assessment and Plan Plan A/P - acute hypoxemic respiratory failure - improving slowly. COPD exacerbation- possible pneumonia ( recently discharged from the hospital) continue with scheduled and prn neb treatment- continue with IV antibiotics , steroids and follow the cultures. keep on oxygen as needed to keep O2 sat > 90%. refused ABG- -diarrhea- check the stool for c-diff. -CAD/ chronic systolic CHF- continue aspirin, plavix, coreg, imdur and diuretic. -Hyperglycemia;on accu-check - A1c 5.8. -PVD; continue aspirin and plavix -consulted PT and case management. -DVT prophylaxis with SCD's Discharge Planning: when medically stable. she's willing to go to rehab. Progress Note: Quality VTE Deep Vein Thrombosis/Pulmonary Embolism Present on Admission: No
[2018-03-18] MEDS: Tolterodine Tartrate LA 2 MG Capsule PO SCH (23:00)
[2018-03-18] MEDS: Sertraline 50 MG Tablet PO SCH (23:20)
[2018-03-18] MEDS: Acetaminophen 325 MG Tablet PO PRN (23:21)
[2018-03-19] MEDS: MethylPREDNISolone Sod Succinate Inj 40 MG/ML Vial IV.PUSH SCH ×2 (05:58→20:07)
[2018-03-19] MEDS: Isosorbide Mononitrate 60 MG ER 24HR Tablet (Imdur) PO SCH (06:00)
[2018-03-19] MEDS: Piperacil/Tazo 3.375 GM Premix 3.375 GM/50 ML PIGGYBACK IV.SIG SCH ×3 (06:02→22:14)
[2018-03-19] MEDS: Insulin NovoLOG Aspart Correctional Sugar Inj SQ SCH ×4 (08:56→20:05)
[2018-03-19] MEDS: Ferrous Sulfate 325 MG Tablet PO SCH (09:03)
[2018-03-19] MEDS: Famotidine 20 MG Tablet PO SCH ×2 (09:03→20:08)
[2018-03-19] MEDS: Torsemide 20 MG Tablet PO SCH (09:04)
[2018-03-19] MEDS: Carvedilol 6.25 MG Tablet PO SCH ×2 (09:04→20:08)
[2018-03-19] MEDS: ALPRAZolam 0.25 MG Tablet PO PRN ×2 (09:10→15:37)
--- NOTE | 2018-03-19 09:35 | P.PNIM ---
Subjective Interval history: in no acute distress. sob is improving. still has diarrhea but with no abdominal pain, nausea/vomiting. no fever. Physical Exam Vital signs: Last Vital Signs Temp 97.9 F 03/19/18 08:00 Pulse 105 H 03/19/18 08:00 Resp 18 03/19/18 08:00 BP 154/77 H 03/19/18 08:00 Pulse Ox 98 03/19/18 08:00 Intake & Output 03/17/18 03/18/18 03/19/18 03/20/18 06:59 06:59 06:59 06:59 Intake Total 1080 / 1080 580 / 580 650 / 650 Output Total 600 / 600 1100 / 1100 400 / 400 Balance 480 / 480 -520 / -520 250 / 250 Weight 58.8 kg 58.8 kg Constitutional no acute distress Routine Respiratory Exam Present CTA bilaterally Routine Cardiovascular Exam Present RRR Routine Abdominal Exam Present soft Routine Extremities Exam Comments: no pedal edema. Routine Neurological Exam Present alert and oriented X3 Results Labs CBC & Chem 7: 03/18/18 04:54 03/17/18 19:21 Labs: Microbiology 03/16/18 07:35 Blood - Peripheral Aerobic Blood Culture - Preliminary No growth in 2 days 03/16/18 07:35 Blood - Peripheral Anaerobic Blood Culture - Preliminary No growth in 2 days Assessment and Plan Plan A/P - acute hypoxemic respiratory failure - improving slowly. COPD exacerbation- possible pneumonia ( recently discharged from the hospital) continue with scheduled and prn neb treatment- continue with IV antibiotics , steroids and follow the cultures. keep on oxygen as needed to keep O2 sat > 90%. refused ABG- -diarrhea- c-diff. negative- imodioum as needed. -CAD/ chronic systolic CHF- continue aspirin, plavix, and diuretic. will continue Coreg and Imdur however will reduce the dose due to low-normal BP's. -Hyperglycemia;on accu-check - A1c 5.8. -PVD; continue aspirin and plavix -consulted PT and case management. -DVT prophylaxis with SCD's Discussed Condition With: the patient, RN and the patient's daughter. Discharge Planning: when medically stable. she's willing to go to rehab. Progress Note: Quality VTE Deep Vein Thrombosis/Pulmonary Embolism Present on Admission: No
[2018-03-19] MEDS ORDERED: Carvedilol 6.25 MG Tablet PO SCH (09:40)
[2018-03-19 14:19] LABS: Calcium 8.5 mg/dL (8.5-10.1); Carbon Dioxide 30.9 meq/L (21.0-32.0); Potassium 3.3 meq/L (3.5-5.1)
[2018-03-19] MEDS: Loperamide 2 MG Capsule PO PRN (15:36)
[2018-03-19] MEDS: Butalbital/APAP/Caff 50/325/40 MG Tablet PO PRN ×2 (15:37→22:22)
[2018-03-19] MEDS: Tolterodine Tartrate LA 2 MG Capsule PO SCH (20:07)
[2018-03-19] MEDS: Sertraline 50 MG Tablet PO SCH (20:09)
[2018-03-20] MEDS: ALPRAZolam 0.25 MG Tablet PO PRN ×3 (00:20→17:33)
[2018-03-20] MEDS: Piperacil/Tazo 3.375 GM Premix 3.375 GM/50 ML PIGGYBACK IV.SIG SCH (06:28)
[2018-03-20] MEDS: Isosorbide Mononitrate 30 MG ER 24HR Tablet (Imdur) PO SCH ×2 (06:32→06:38)
[2018-03-20] MEDS: Insulin NovoLOG Aspart Correctional Sugar Inj SQ SCH ×4 (08:42→21:28)
[2018-03-20] MEDS: Ferrous Sulfate 325 MG Tablet PO SCH (08:43)
[2018-03-20] MEDS: Carvedilol 6.25 MG Tablet PO SCH (08:43)
[2018-03-20] MEDS: Famotidine 20 MG Tablet PO SCH ×2 (08:43→21:26)
[2018-03-20] MEDS: Torsemide 20 MG Tablet PO SCH (08:43)
[2018-03-20] MEDS: MethylPREDNISolone Sod Succinate Inj 40 MG/ML Vial IV.PUSH SCH (08:44)
--- NOTE | 2018-03-20 09:17 | P.PNIM ---
Subjective Interval history: in no acute distress. looks and feels better today. wheezing/ sob has improved. diarrhea has improved. d/w the RN and no acute issues over noted. Physical Exam Vital signs: Last Vital Signs Temp 98 F 03/20/18 04:00 Pulse 80 03/20/18 07:00 Resp 16 03/20/18 07:00 BP 97/60 L 03/20/18 04:00 Pulse Ox 99 03/20/18 08:00 Intake & Output 03/18/18 03/19/18 03/20/18 03/21/18 06:59 06:59 06:59 06:59 Intake Total 580 / 580 650 / 650 220 / 220 Output Total 1100 / 1100 400 / 400 Balance -520 / -520 250 / 250 220 / 220 Weight 58.8 kg 58.8 kg Constitutional no acute distress Routine Respiratory Exam Present CTA bilaterally Routine Cardiovascular Exam Present RRR Routine Abdominal Exam Present soft Routine Extremities Exam Comments: no pedal edema. Routine Neurological Exam Present alert and oriented X3 Results Labs CBC & Chem 7: 03/18/18 04:54 03/20/18 11:09 Labs: Microbiology 03/16/18 07:35 Blood - Peripheral Aerobic Blood Culture - Preliminary No growth in 3 days 03/16/18 07:35 Blood - Peripheral Anaerobic Blood Culture - Preliminary No growth in 3 days Assessment and Plan Plan A/P - acute hypoxemic respiratory failure - improving slowly. COPD exacerbation- possible pneumonia ( recently discharged from the hospital) continue with scheduled and prn neb treatment- patient refused the IV line replacement today; will switch to oral Abx and steroid. keep on oxygen as needed to keep O2 sat > 90%. walk test today. -diarrhea- [id number]. negative- imodioum as needed. -CAD/ chronic systolic CHF- continue aspirin, plavix, and diuretic. will continue Coreg and Imdur however will further reduce the dose of Coreg due to low-normal BP's. continue to monitor. acute kidney injury - creatinine fairly stable-hold diuretics and will monitor; BMP today pending. patient refused IV access replacement today. -Hyperglycemia;on accu-check - A1c 5.8. -PVD; continue aspirin and plavix -consulted PT and case management. -DVT prophylaxis with SCD's Discharge Planning: discharge within the next 24 hrs. home with [facility] vs rehab. d/w the case management today. Progress Note: Quality VTE Deep Vein Thrombosis/Pulmonary Embolism Present on Admission: No
[2018-03-20] MEDS: Butalbital/APAP/Caff 50/325/40 MG Tablet PO PRN ×2 (09:26→23:28)
[2018-03-20] MEDS: Loperamide 2 MG Capsule PO PRN ×3 (09:26→18:12)
[2018-03-20] MEDS: predniSONE 20 MG Tablet PO SCH (09:36)
[2018-03-20] MEDS: Amoxicillin/Clavulanate 500/125 MG Tablet PO SCH ×2 (12:38→22:23)
[2018-03-20 13:11] LABS: Calcium 9.1 mg/dL (8.5-10.1); Potassium 3.5 meq/L (3.5-5.1)
[2018-03-20] MEDS: Sertraline 50 MG Tablet PO SCH (21:26)
[2018-03-20] MEDS: Tolterodine Tartrate LA 2 MG Capsule PO SCH (21:27)
[2018-03-21] MEDS: ALPRAZolam 0.25 MG Tablet PO PRN ×3 (01:02→22:21)
[2018-03-21] MEDS: Isosorbide Mononitrate 30 MG ER 24HR Tablet (Imdur) PO SCH (09:17)
[2018-03-21] MEDS: Acetaminophen 325 MG Tablet PO PRN (09:17)
[2018-03-21] MEDS: predniSONE 20 MG Tablet PO SCH (09:17)
[2018-03-21] MEDS: Famotidine 20 MG Tablet PO SCH ×2 (09:18→21:06)
[2018-03-21] MEDS: Ferrous Sulfate 325 MG Tablet PO SCH (09:18)
[2018-03-21] MEDS: Insulin NovoLOG Aspart Correctional Sugar Inj SQ SCH ×4 (09:18→22:20)
--- NOTE | 2018-03-21 09:52 | P.PNIM ---
Subjective Interval history: Patient seen and evaluated splinted bedside. Patient denied fever or chills overnight and is currently saturating well on 2 L nasal cannula. Patient reports that she has not been on oxygen previously and was given a oxygen tank for discharge home. Physical Exam Vital signs: Last Vital Signs Temp 97.8 F 03/21/18 08:00 Pulse 74 03/21/18 08:00 Resp 18 03/21/18 08:00 BP 136/62 03/21/18 08:00 Pulse Ox 99 03/21/18 08:00 Intake & Output 03/19/18 03/20/18 03/21/18 03/22/18 06:59 06:59 06:59 06:59 Intake Total 650 / 650 220 / 220 900 / 900 Output Total 400 / 400 2300 / 2300 Balance 250 / 250 220 / 220 -1400 / -1400 Weight 58.8 kg 58.8 kg 58.8 kg General: No acute distress, conversational HEENT: EOMI Respiratory: Clear to auscultation anteriorly and posteriorly. No intercostal muscle use. No wheezing appreciated Cardiovascular: S1/S2 Gastro-intestinal: Soft, nontender, nondistended, no guarding or rebound appreciated Extremity: No lower extremity edema Results Labs CBC & Chem 7: 03/18/18 04:54 03/20/18 11:09 Labs: Microbiology 03/16/18 07:35 Blood - Peripheral Aerobic Blood Culture - Preliminary No growth in 4 days 03/16/18 07:35 Blood - Peripheral Anaerobic Blood Culture - Preliminary No growth in 4 days Assessment and Plan Plan Patient is a pleasant 82-year-old female with past medical history of CAD, CHF, COPD and peripheral vascular disease who presented with shortness of breath recently hospitalized for decompensated heart failure now readmitted for shortness of breath found to have evidence concerning for COPD exacerbation Pulmonary: Acute hypoxemic respiratory failure in the setting of COPD exacerbation Prednisone 40 mg x 5 days Augmentin twice daily Insulin correction scale Endocrinology: Hypothyroidism Continue Synthroid Cardiology: Coronary artery disease status post stent, CHF CAD/ chronic systolic CHF- - continue aspirin, plavix, coreg 3.125mg bid, imdur and torsemide 20mg qD Catheterization 01/31 2018: Severely impaired LV function with ejection fraction 30%. Evidence for infarctions corresponding to the dominant circumflex and distal LAD. Elevated left ventricular end-diastolic pressures. Patient previously evaluated by cardiology and at that time patient was not thought to be a suitable candidate for coronary revascularization percutaneously. Patient was seen by cardio surgical consultation and given her significant medical comorbidities and severe underlying cardiopulmonary disease and lack of distal targets she was not deemed to be surgical candidate. Medical management was recommended at that time along with palliative and hospice care evaluation. Vascular: Peripheral vascular disease -continue aspirin and plavix -DVT prophylaxis with SCD's Disposition: Patient would like to have home companion on discharge Patient to be discharged with oxygen therapy marlon Smith [phone] and Nila Clark [phone] Progress Note: Quality VTE Deep Vein Thrombosis/Pulmonary Embolism Present on Admission: No
[2018-03-21] MEDS: Loperamide 2 MG Capsule PO PRN (12:26)
[2018-03-21] MEDS: Amoxicillin/Clavulanate 500/125 MG Tablet PO SCH ×2 (12:26→22:21)
[2018-03-21] MEDS: Butalbital/APAP/Caff 50/325/40 MG Tablet PO PRN (17:54)
[2018-03-21] MEDS: Sertraline 50 MG Tablet PO SCH (21:06)
[2018-03-21] MEDS: Tolterodine Tartrate LA 2 MG Capsule PO SCH (21:07)
[2018-03-22] MEDS: Isosorbide Mononitrate 30 MG ER 24HR Tablet (Imdur) PO SCH (07:36)
[2018-03-22] MEDS: ALPRAZolam 0.25 MG Tablet PO PRN ×2 (07:36→15:37)
[2018-03-22] MEDS: Famotidine 20 MG Tablet PO SCH (09:18)
[2018-03-22] MEDS: Insulin NovoLOG Aspart Correctional Sugar Inj SQ SCH ×2 (09:18→12:44)
[2018-03-22] MEDS: predniSONE 20 MG Tablet PO SCH (09:19)
[2018-03-22] MEDS: Ferrous Sulfate 325 MG Tablet PO SCH (09:20)
--- NOTE | 2018-03-22 11:18 | P.DCO ---
Physical Therapy Order: Evaluate and treat and Strength and gait training Instructions: evaluate for PT/OT assistance Assistance with medication management Home Health Nursing Order: Medical education and Oxygen administration education Case Management Consult Case Management Consult-Home Health: Yes I have seen patient Patricia Hernandez on 03/22/18. My clinical findings support the need for the requested home health care services because: Patient has SOB, Deconditioned with increased weakness and Medication compliance is questionable I certify that my clinical findings support that this patient is homebound because:
[2018-03-22] MEDS: Butalbital/APAP/Caff 50/325/40 MG Tablet PO PRN (12:43)
[2018-03-22] MEDS: Amoxicillin/Clavulanate 500/125 MG Tablet PO SCH (12:43)
[2018-03-22] MEDS: Loperamide 2 MG Capsule PO PRN (12:49)
[2018-03-22] MEDS ORDERED: Petrolatum/Shark Oil/Phenylephrine Oint 60 GM Tube RECTAL ONE (13:00)
--- NOTE | 2018-03-22 14:26 | P.DS ---
DS: Providers Date of admission: 03/16/18 09:37 Primary care physician: UNKNOWN Patient is a pleasant 82-year-old female who presented to emergency department for shortness of breath. Patient was admitted to hospital with the following treatments and services were provided. Patient was recently hospitalized here for similar complaints and during hospitalization consultation was appreciated by cardiology at which point patient was found to have significant cardiac disease but given her underlying cardiopulmonary functional status it was deemed that she was not a surgical candidate and medical optimization was recommended along with palliative care evaluation. While hospitalized patient was treated for suspected exacerbation of COPD with nebulizer therapy, steroids , and antibiotics. Patient clinically improved and stable for discharge but is requesting home health care services in the setting of concerns regarding medication compliance, medication education, and functional decline over a period of time. Patient otherwise medically optimized for discharge with following provision for follow-up care. Patient to continue with prednisone 40 mg daily for 5 days along with 3 additional days of Augmentin outpatient. Patient is to follow-up with outpatient primary medical physician. While hospitalized patient was started on oxygen therapy with improvement in aeration and clinical status. Consults: 03/16/18 13:30 HUB Only Consult Order Routine Consulting Provider: Luiz Dee Brief History from admission: patient is a 82 y/o female with history of CAD, CHF,COPD,PVD, who presented to ER with shortness of breath. she was recently discharged from the hospital after she was treated for decompensated CHF. she says that she initially wanted to go to rehab but she then she went home. she says that she started to have worsening sob last night. she denies any chest pain, fever or productive cough although she had some chills. per the ER, her pulse-ox was in low 80's prior to her presentation to ER. she says that she lives alone but being helped by her daughter. DS: Summary Patient is a pleasant 82-year-old female who presented to emergency department for shortness of breath. Patient was admitted to hospital with the following treatments and services were provided. Patient was recently hospitalized here for similar complaints and during hospitalization consultation was appreciated by cardiology at which point patient was found to have significant cardiac disease but given her underlying cardiopulmonary functional status it was deemed that she was not a surgical candidate and medical optimization was recommended along with palliative care evaluation. While hospitalized patient was treated for suspected exacerbation of COPD with nebulizer therapy, steroids , and antibiotics. Patient clinically improved and stable for discharge but is requesting home health care services in the setting of concerns regarding medication compliance, medication education, and functional decline over a period of time. Patient otherwise medically optimized for discharge with following provision for follow-up care. Patient to continue with prednisone 40 mg daily for 5 days along with 3 additional days of Augmentin outpatient. Patient is to follow-up with outpatient primary medical physician. While hospitalized patient was started on oxygen therapy with improvement in aeration and clinical status. Time Spent with Patient Total time spent providing and/or coordinating discharge services: Quality: VTE Deep Vein Thrombosis/Pulmonary Embolism Present on Admission: No Exam Narrative Exam Narrative: Pulmonary: Clear to auscultation anteriorly and posteriorly without wheezing, rales, or rhonchi. No intercostal muscle use. Cardiovascular: S1/S2 Gastrointestinal: Soft, nontender, nondistended, no guarding or rebound appreciated. Extremity: No lower extremity edema Results Labs on day of discharge: Labs from last 24 hours 03/22/18 03/22/18 03/21/18 12:21 08:13 20:25 POC Glucose 151 H 105 134 H 03/21/18 17:07 POC Glucose 214 H Impressions ITS Impressions Chest X-Ray 03/16/18 07:30 CONCLUSION: Minimal basilar parenchymal opacities Discharge Plan Discharge Disposition Patient Disposition: W/Home Health Service Discharge Condition Condition: Stable Discharge Order Discharge Orders: Discharge Order (Routine); Ordered 03/22/18 Ordered By: Zain Dennison Discharge Details Anticipated Discharge Date: 03/22/18 Physicians Team Primary Care Provider: UNKNOWN, Attending Provider: Zain Dennison Other Providers: Luiz Dee Rxs /Orders / Referrals /Forms Prescriptions: New amoxicillin-pot clavulanate [Augmentin] 500-125 mg Tablet 1 tab PO Q12H 3 Days Qty: 6 RF: 0 prednisone 20 mg Tablet 40 mg PO DAILY 5 Days Qty: 10 RF: 0 budesonide-formoterol [Symbicort] 160-4.5 mcg/actuation HFA aerosol inhaler 2 inh INHALATION BID 30 Days Qty: 10.2 RF: 0 Continue ipratropium-albuterol 0.5 mg-3 mg(2.5 mg base)/3 mL Solution For Nebulization 1 amp NEB Q2HR NEB PRN (Reason: sob/wheezing) Qty: 100 RF: 0 clopidogrel [Plavix] 75 mg Tablet 75 mg PO DAILY Qty: 30 RF: 0 isosorbide mononitrate 60 mg Tablet Extended Release 24 Hr 60 mg PO DAILY@0700 Qty: 30 RF: 0 alprazolam [Xanax] 0.25 mg Tablet 0.25 mg PO Q8H PRN (Reason: Breakthrough Anxiety) Qty: 60 RF: 0 nitroglycerin [Nitrostat] 0.4 mg Tablet, Sublingual 0.4 mg Sublingual Q5M PRN (Reason: Chest Pain) Qty: 90 RF: 0 tolterodine 1 mg Tablet 1 mg PO HS Qty: 30 RF: 0 aspirin [Aspir-Low] 81 mg Tablet,Delayed Release (Dr/Ec) 81 mg PO DAILY Qty: 30 RF: 0 levothyroxine 25 mcg Tablet 25 mcg PO DAILY Qty: 30 RF: 0 losartan 25 mg Tablet 25 mg PO DAILY Qty: 30 RF: 0 sertraline [Zoloft] 25 mg Tablet 25 mg PO HS Qty: 30 RF: 0 sodium chloride 1 gram Tablet 1,000 mg PO BID RF: 0 potassium chloride 10 mEq Tablet Extended Release 10 meq PO DAILY RF: 0 melatonin 3 mg Tablet 9 mg PO HS PRN (Reason: Insomnia) RF: 0 acetaminophen 500 mg Tablet 500 mg PO Q4-6H PRN (Reason: Pain) RF: 0 ranitidine HCl 75 mg Tablet 75 mg PO BID RF: 0 ferrous sulfate 325 mg (65 mg iron) Tablet 325 mg PO DAILY RF: 0 amino acids-protein hydrolys [Pro-Stat Sugar Free] 15 gram- 100 kcal/30 mL Liquid In Packet 1 packet PO DAILY RF: 0 carvedilol 25 mg tablet 12.5 mg PO BID RF: 0 hydrocodone-acetaminophen 5-325 mg tablet 1 tab PO Q12H PRN (Reason: Acute Pain) RF: 0 torsemide 20 mg Tablet 20 mg PO DAILY 30 Days Qty: 30 RF: 0 Discontinued diazepam [Valium] 5 mg Tablet 5 mg PO HS PRN (Reason: Anxiety) RF: 0 Ambulatory Orders / Order Sets / DME: Oxygen Tank (2 liter) (Routine) Location: Determined by Patient Ordered By: Ad Robins Referrals: UNKNOWN, [Primary Care Provider] - See Instructions (please follow up with your primary medical doctor for monitoring of COPD. If no doctor please follow up with Mary Brambila [phone]) Status ED Status: Left Department
== END 2018-03-22 17:39 | disposition home health service (06) ==
LOC: NEPC 07:09 → NEDA 09:37 → N04 12:00
PROVIDERS: ADMIT Internal Medicine; ATTEND Internal Medicine